=== PATIENT | male | born 1945 | race Caucasian/White ===

== ENCOUNTER 2024-09-19 14:20 | Inpatient (IN) | payer MEDICARE, SELFPAY ==
[2024-09-19] VITALS (15 sets, daily range): BP systolic 116–156; BP diastolic 61–75; PULSE 71–117; RESP 16–88; TEMP 36.4–39.3; O2SAT 90–97; BMI 26.4; BMI 21.1
--- NOTE | 2024-09-19 14:53 | XR_ITS ---
Examination: Foot, left, 3 views Technique: AP, oblique, lateral views foot, 3 views Date and time of exam: September 19, 2024 1512 hours INDICATIONS: Onset left flank pain today. FINDINGS: Soft tissue defect at the fifth metatarsophalangeal joint No fracture No cortical bone destruction Significant intertarsal arthritic change with osteophyte formation at the talonavicular joint IMPRESSION: No laisha cortical bone destruction
--- NOTE | 2024-09-19 14:53 | EKG_ITS ---
[facility] Test Date: 2024-09-19 Pat Name: HERMAN STEEL Department: Room: - Gender: Male Test Operator: : 1945 Requested By: Halley Krishna Order Number: [id number] Reading MD: Halley Krishna Measurements Intervals [place] Rate: 83 P: 73 WV: 161 QRS: 132 QRSD: 178 T: -12 QT: 416 QTc: 491 Interpretive Statements SINUS RHYTHM WITH OCCASIONAL SUPRAVENTRICULAR PREMATURE COMPLEXES RIGHT AXIS DEVIATION [QRS AXIS > 100] RIGHT BUNDLE BRANCH BLOCK [120+ ms QRS DURATION, UPRIGHT V1, 40+ ms S IN I/aVL/V4/V5/V6] No previous ECG available for comparison /store/S0/[id number].pdf
--- NOTE | 2024-09-19 14:55 | XR_ITS ---
Examination: AP chest single view Technique one AP portable upright chest single view Date and time: September 19, 2024 1516 hours INDICATIONS: Sepsis protocol fever FINDINGS: Suspicious for early pneumonia left base retrocardiac Right lung clear Normal heart size IMPRESSION: Suspicious for early left base pneumonia
--- NOTE | 2024-09-19 14:57 | PD.EDAMS ---
Altered Mental Status RME/HPI General Chief Complaint: Altered Mental Status Stated Complaint: WEAKNESS AND CONFUSION x 3 DAYS, SORE TO FOOT Time Seen by Provider: 09/19/24 14:47 Arrival date/time: 09/19/24 14:20 RME / HPI RME / HPI narrative: 79-year-old male patient was brought in by EMS for evaluation regarding weakness, fever, confusion, for the last 3 days. Severity of symptoms moderate. Patient also was seen by license registration examiner 3 days ago and was advised that the infection is getting worse. Patient told me that he is currently taking unrecalled antibiotics. Patient also complained of cough. Denies any other complaints on my initial evaluation patient is alert and oriented x 2 sepsis alert was initiated right away. For fever and tachycardia Related Data Home Medications ?Medication ?Instructions ?Recorded ?Confirmed aspirin 81 mg tablet 81 mg PO QDAY 09/19/24 09/19/24 atorvastatin 20 mg tablet (Lipitor) 20 mg PO QDAY 09/19/24 09/19/24 gabapentin 300 mg capsule 300 mg PO Q8H PRN back pain 09/19/24 09/19/24 metformin 500 mg tablet 500 mg PO BIDWMEAL 09/19/24 09/19/24 omeprazole 20 mg capsule,delayed 20 mg PO QDAY 09/19/24 09/19/24 release Allergies Allergy/AdvReac Type Severity Reaction Status Date / Time No Known Allergies Allergy Verified 09/19/24 14:41 Review of Systems Review of Systems Narrative Review of Systems: Review of system reviewed and within normal limits except mentioned in HPI ED Exam Narrative Physical exam: VITAL SIGNS: Reviewed. GENERAL APPEARANCE: Alert and oriented x 2 follows commands, no acute distress, febrile HEAD AND FACE: Non-traumatic. ENT: PERRL, pink conjunctivitis, eyelid no trauma, Mucous membrane moist. NECK: Supple, nontender, no nuchal rigidity. CHEST: No tenderness, no crepitus, no paradoxical movement, no retractions. LUNGS: Clear, well ventilated, symmetric, no rales, no wheezing, no ronchi, no stridor, good breath sounds bilaterally. HEART: Tachycardic, no murmur, no gallops. ABDOMEN: Soft, positive bowel sounds, nondistended, no guarding, nontender, no rebound, no masses, RECTAL: Deferred. GENITAL: Deferred. NEUROLOGICAL: Gross motor function intact sensory function intact, Appropriate for age. MUSCULOSKELETAL: low back nontender, full range of motion. EXTREMITIES: Right foot with plantar ulcer on the lateral aspect, with redness all the way to the dorsum of the foot with foul-smelling discharge, full range of motion. SKIN: Color pink, dry, no rash, no lacerations, no abrasions, no contusions. LYMPHATICS: Deferred. Course Quality Measures none Orders Category Date Time Status Bedside Influenza A&B Antigen Test NOW Care 09/19/24 17:00 Completed COVID-19 Screening Questionnaire NOW Care 09/19/24 19:52 Completed Fancy Needleworker STAT Care 09/19/24 14:53 Completed Continuous Pulse Oximetry STAT Care 09/19/24 14:53 Completed Decision to Admit X1 Care 09/19/24 19:52 Completed EKG (ED ONLY) *Do not use* NOW Care 09/19/24 14:53 Completed In and Out Catheter X1PRN Care 09/19/24 14:53 Completed Insert IV NOW Care 09/19/24 14:53 Active NPO STAT Care 09/19/24 14:53 Active Strict Intake and Output Routine Care 09/19/24 14:53 Ordered Consult to Cardiology Stat Cons 09/19/24 18:[address] head/brain wo con Stat Exams 09/19/24 15:29 Completed EKG (ED Only) Stat Exams 09/19/24 14:53 Draft XR chest 1V Stat Exams 09/19/24 14:55 Completed XR foot comp LT min 3V Stat Exams 09/19/24 14:53 Completed B-Type Natriuretic Peptide Stat Lab 09/19/24 15:05 Completed Blood Culture (Lab) Stat Lab 09/19/24 15:10 Results CBC Stat Lab 09/19/24 15:05 Completed COVID-19 Antigen (In-House) Stat Lab 09/19/24 17:07 Completed Comprehensive Metabolic Panel Stat Lab 09/19/24 15:05 Completed LDH (Lactate Dehydrogenase) Stat Lab 09/19/24 15:05 Completed Lactate (Lactic Acid) Stat Lab 09/19/24 15:05 Completed Lipase Stat Lab 09/19/24 15:05 Completed Magnesium Stat Lab 09/19/24 15:05 Completed Partial Thromboplastin Time Stat Lab 09/19/24 15:05 Completed Phosphorous Stat Lab 09/19/24 15:05 Completed Procalcitonin Stat Lab 09/19/24 15:05 Completed Prothrombin Time with INR Stat Lab 09/19/24 15:05 Completed Troponin I Stat Lab 09/19/24 15:05 Completed Troponin I Stat Lab 09/19/24 17:15 Completed Urinalysis Stat Lab 09/19/24 20:13 Completed Urine Culture Stat Lab 09/19/24 20:13 Received Acetaminophen Tab [Tylenol ES Tab] Med 09/19/24 14:53 Discontinued 1,000 mg PO X1 ONE Aspirin Med 09/19/24 18:02 Discontinued 325 mg PO X1 ONE Piper/Tazo 3.375 gm Premix [Zosyn] Med 09/19/24 14:54 Discontinued 3.375 gm in 50 ml IV X1 Sodium Chloride 0.9% 1000 ml [Ns] 1,000 ml Med 09/19/24 14:54 Discontinued IV 999 mls/hr Vancomycin/Ns 1 gm Ivpb 200 ml Med 09/19/24 14:54 Discontinued IV X1 Oxygen Delivery NOW RT 09/19/24 14:53 Active Vital Signs Vital signs: Vital Signs Temperature 99.0 F 09/19/24 14:29 Pulse Rate 100 09/19/24 14:29 Respiratory Rate 17 09/19/24 14:29 Blood Pressure 128/75 09/19/24 14:29 Pulse Oximetry (%) 95 09/19/24 14:29 Oxygen Delivery Method Nasal Cannula 09/19/24 14:29 Oxygen Flow Rate 6 09/19/24 14:29 Altered Mental Status MDM Narrative MDM Narrative:: 79-year-old male patient was brought in by EMS for evaluation regarding weakness, fever, confusion, for the last 3 days. Severity of symptoms moderate. Patient also was seen by license registration examiner 3 days ago and was advised that the infection is getting worse. Patient told me that he is currently taking unrecalled antibiotics. Patient also complained of cough. Denies any other complaints on my initial evaluation patient is alert and oriented x 2 sepsis alert was initiated right away. For fever and tachycardia EKG showed sinus rhythm, ventricular rate of 83 bpm, IN interval 161 MS, no ST segment elevation depression noted. X-ray of the foot came back unremarkable. Patient received vancomycin and Zosyn Spoke with hospitalist, who admitted the patient. Patient was also referred to Dr. Randy Paez, graduate intern for elevated troponin Patient data External records reviewed:: None Clinical information provided by:: patient and family Social determinants that could affect healthcare access:: none Patient has the following chronic illnesses:: Diabetes mellitus, hypertension How is presenting disease/condition affected by chronic disease/condition?: exacerbated by Evaluation data The following diagnostics were reviewed and interpreted by me:: lab results, radiology exam(s) and EKG tracing(s) Lab and/or radiology exams considered but not ordered:: None Interpretation Summary: See results MDM Medications / Prescriptions Medications or Prescriptions considered but not ordered:: None Medication administrations:: Medication Administration History Acetaminophen (Acetaminophen 325 Mg Tablet) 1,000 mg PO Q6H PRN PRN Reason: PAIN SCALE 1-3 (mild Stop: 10/19/24 20:44 Acetaminophen (Acetaminophen 325 Mg Tablet) 650 mg PO Q6H PRN PRN Reason: FEVER > 100.4 Stop: 10/19/24 20:44 Aspirin (Aspirin Ec 81 Mg Tabec) 81 mg PO QDAY [facility] Stop: 10/20/24 08:59 Last Admin: 09/20/24 08:26 Dose: 81 mg Documented By: VALERIE Atorvastatin Calcium (Atorvastatin Calcium 20 Mg Tablet) 20 mg PO HS [facility] Stop: 10/19/24 20:59 Last Admin: 09/20/24 21:12 Dose: 20 mg Documented By: Admin: 09/19/24 21:01 Dose: 20 mg Documented By: KARMA Dextrose (Dextrose 50%-Water Inj 50 Ml Syringe) 25 ml IV Q15MIN PRN PRN Reason: BG 50-70 responsive npo pt Stop: 10/19/24 21:02 Dextrose (Dextrose 50%-Water Inj 50 Ml Syringe) 50 ml IV Q15MIN PRN PRN Reason: BG <50 OR BG <70 & pt unresponsive Stop: 10/19/24 21:02 Docusate Sodium (Docusate Sod 100 Mg Capsule) 100 mg PO QDAY [facility]; Protocol Stop: 10/20/24 08:59 Last Admin: 09/20/24 08:26 Dose: 100 mg Documented By: MGTracy Folic Acid (Folic Acid 1 Mg Tablet) 1 mg PO BID [facility] Stop: 09/24/24 21:14 Last Admin: 09/20/24 21:12 Dose: 1 mg Documented By: Admin: 09/20/24 08:26 Dose: 1 mg Documented By: Admin: 09/19/24 22:26 Dose: 1 mg Documented By: KARMA Gabapentin (Gabapentin 300 Mg Capsule) 300 mg PO TID [facility] Stop: 10/19/24 21:59 Last Admin: 09/20/24 22:02 Dose: 300 mg Documented By: Admin: 09/20/24 14:23 Dose: 300 mg Documented By: Admin: 09/20/24 05:43 Dose: 300 mg Documented By: Admin: 09/19/24 22:26 Dose: 300 mg Documented By: KARMA Glucagon (Glucagon Inj 1 Mg Vial) 1 mg IM Q15MIN PRN PRN Reason: BG <70, and no IV access Heparin Sodium (Porcine) (Heparin Sod Inj 5000 Unit/Ml Vial) 5,000 unit SC Q8HR [facility] Stop: 10/03/24 21:59 Last Admin: 09/20/24 21:12 Dose: 5,000 unit Documented By: LANDON Co-signed By: Admin: 09/20/24 14:24 Dose: 5,000 unit Documented By: VALERIE Co-signed By: KARMA(2) Admin: 09/20/24 05:43 Dose: 5,000 unit Documented By: HANNA Co-signed By: ALESSANDRO Admin: 09/19/24 22:26 Dose: 5,000 unit Documented By: KARMA Co-signed By: BRIAN Piperacillin/Tazobactam/Dextrose (Zosyn) 3.375 gm in 50 mls @ 12.5 mls/hr IV Q8HR [facility] Stop: 09/26/24 20:57 Last Admin: 09/20/24 22:02 Dose: 12.5 mls/hr Documented By: Infusion: 09/20/24 19:15 Dose: Infused Documented By: Admin: 09/20/24 14:24 Dose: 12.5 mls/hr Documented By: Infusion: 09/20/24 09:43 Dose: Infused Documented By: Admin: 09/20/24 05:43 Dose: 12.5 mls/hr Documented By: Infusion: 09/20/24 02:26 Dose: Infused Documented By: Admin: 09/19/24 22:26 Dose: 12.5 mls/hr Documented By: KARMA Vancomycin/Sodium Chloride (Vancomycin/Ns 1 Gm Ivpb) 200 mls @ 120 mls/hr IV Q12H [facility]; Protocol Stop: 09/27/24 21:59 Last Admin: 09/20/24 21:12 Dose: 120 mls/hr Documented By: LANDON Insulin Human Lispro (Insulin Lispro (Admelog) 1 Unit/0.01 Ml Unit) 0 unit SC AC [facility]; Protocol Stop: 10/20/24 07:29 Last Admin: 09/20/24 17:37 Dose: Not Given Documented By: MGD Non-Admin Reason: Patient Refused Admin: 09/20/24 12:04 Dose: Not Given Documented By: MGD Non-Admin Reason: lethargic, unable to eat Admin: 09/20/24 07:42 Dose: Not Given Documented By: MGD Non-Admin Reason: Patient Refused Lidocaine (Lidocaine 5% 1 Patch) 1 patch TOP UD PRN; Protocol PRN Reason: PAIN Stop: 10/20/24 18:55 Last Admin: 09/20/24 19:45 Dose: 1 patch Documented By: LANDON Lorazepam (Lorazepam 2 Mg/Ml Vial) 0.5 mg IV Q2HR PRN PRN Reason: CIWA SCORE 7-13 Stop: 09/24/24 21:07 Lorazepam (Lorazepam 2 Mg/Ml Vial) 1 mg IV Q2HR PRN PRN Reason: CIWA SCORE 14-19 Stop: 09/24/24 21:07 Lorazepam (Lorazepam 2 Mg/Ml Vial) 2 mg IV Q2HR PRN PRN Reason: CIWA SCORE 20-25 Stop: 09/24/24 21:07 Lorazepam (Lorazepam 0.5 Mg Tablet) 0.5 mg PO Q4HR PRN PRN Reason: CIWA Score 2-6 Stop: 09/24/24 21:07 Ondansetron HCl (Ondansetron Inj 2 Mg/Ml Inj 2 Ml) 4 mg IVP Q6H PRN; Protocol PRN Reason: NAUSEA OR VOMITING Stop: 10/19/24 20:44 Pantoprazole Sodium (Pantoprazole 40 Mg Tablet) 40 mg PO QDAY [facility] Stop: 10/20/24 08:59 Last Admin: 09/20/24 08:26 Dose: 40 mg Documented By: MGD Pharmacy Consult (Vancomycin Pharmacy To Dose 1 Each Each) 1 each IV QDAY PRN PRN Reason: PROTOCOL Stop: 10/20/24 11:09 Thiamine HCl (Thiamine 100 Mg Tablet) 100 mg PO BID [facility] Stop: 09/24/24 21:14 Last Admin: 09/20/24 21:12 Dose: 100 mg Documented By: Admin: 09/20/24 08:26 Dose: 100 mg Documented By: Admin: 09/19/24 22:26 Dose: 100 mg Documented By: KARMA Discontinued Medications Acetaminophen (Acetaminophen 500 Mg Tablet) 1,000 mg PO X1 ONE Stop: 09/19/24 14:54 Last Admin: 09/19/24 16:24 Dose: 1,000 mg Documented By: ROBERT Acetaminophen (Acetaminophen 325 Mg Tablet) 650 mg PO Q6H PRN PRN Reason: Fever >100.4 Stop: 10/19/24 20:44 Aspirin (Aspirin 325 Mg Tablet) 325 mg PO X1 ONE Stop: 09/19/24 18:03 Last Admin: 09/19/24 19:05 Dose: 325 mg Documented By: KARMA Doxycycline Hyclate (Doxycycline 100 Mg Tablet) 100 mg PO BID [facility] Stop: 09/26/24 20:59 Last Admin: 09/20/24 08:26 Dose: 100 mg Documented By: Admin: 09/19/24 22:26 Dose: 100 mg Documented By: KARMA Sodium Chloride (Ns) 1,000 mls @ 999 mls/hr IV .Q1H1M ONE Stop: 09/19/24 15:54 Last Infusion: 09/19/24 17:10 Dose: Infused Documented By: Admin: 09/19/24 16:22 Dose: 999 mls/hr Documented By: ROBERT Vancomycin/Sodium Chloride (Vancomycin/Ns 1 Gm Ivpb) 200 mls @ 120 mls/hr IV X1 ONE Stop: 09/19/24 16:33 Last Infusion: 09/19/24 19:02 Dose: Infused Documented By: Admin: 09/19/24 16:23 Dose: 120 mls/hr Documented By: ROBERT Piperacillin/Tazobactam/Dextrose (Zosyn) 3.375 gm in 50 mls @ 100 mls/hr IV X1 ONE Stop: 09/19/24 15:23 Last Infusion: 09/19/24 16:54 Dose: Infused Documented By: Admin: 09/19/24 16:22 Dose: 100 mls/hr Documented By: CG Sodium Chloride (Ns) 1,000 mls @ 100 mls/hr IV .Q10H [facility] Stop: 09/20/24 06:44 Last Admin: 09/19/24 21:00 Dose: 100 mls/hr Documented By: AC Vancomycin HCl (Vancomycin/Water 1250 Mg Ivpb) 250 mls @ 120 mls/hr IV X1 ONE Stop: 09/20/24 13:19 Last Admin: 09/20/24 11:37 Dose: 120 mls/hr Documented By: MGD Morphine Sulfate (Morphine Sulf Inj 10 Mg/Ml Vial) 2 mg IVP X1 ONE Stop: 09/20/24 08:50 Last Admin: 09/20/24 10:12 Dose: 2 mg Documented By: MGD Morphine Vanco Zosyn, aspirin Consultations Consultation(s) initiated? (list below): Yes Consultation #1 (Physician, Specialty, Details): Alteration Hand, Dr. Stafford thank you Diagnosis Differential diagnosis altered mental status: altered mental status, sepsis and other (Diabetic foot infection, sepsis, elevated troponin) Most likely diagnosis given after review of the tests above:: Diabetic foot infection, elevated troponin Admission Indicated Admission indicated?: indicated Admission Request Was there a request for admission?: No Disposition Plan Disposition Plan: Admit Discharge Plan Plan Patient Disposition: Admit Acute Care w/in Hospital Problem List Clinical Impression: Diabetic foot infection, Elevated troponin
[2024-09-19 15:16] LABS: Lactate (Lactic Acid) 1.3 mMol/L (0.4-2.0)
[2024-09-19 15:19] LABS: Basophils # (Auto) 0.1 Thou/mm3 (0.0-0.2); Basophils % (Auto) 1 % (0-2.5); Eosinophils # (Auto) 0.0 Thou/mm3 (0.0-0.5); Eosinophils % (Auto) 0 % (0-10); Hematocrit 37.9 % (41.0-53.0); Hemoglobin 13.9 g/dL (13.5-16.0); Immature Granulocytes Auto 0.18 Thou/mm3 (0.00-0.00); Lymphocytes # (Auto) 1.1 Thou/mm3 (1.0-4.8); Lymphocytes % (Auto) 6 % (10-50); Mean Corpuscular HGB Conc 36.7 g/dl (31.0-37.0); Mean Corpuscular Hemoglobin 33.8 pg (25.0-35.0); Mean Corpuscular Volume 92 fL (80-100); Monocytes # (Auto) 2.1 Thou/mm3 (0.0-0.8); Monocytes % (Auto) 12 % (0-12); Neutrophils # (Auto) 14.3 Thou/mm3 (1.8-7.7); Neutrophils % (Auto) 80 % (37-80); Nucleated Red Blood Cell # 0.00 Thou/mm3 (0.00-0.00); Nucleated Red Blood Cell % 0 /100 WBC (0); Platelet Count 217 Thou/mm3 (140-440); RDW Standard Deviation 41.8 fL (35.1-43.9); Red Blood Count 4.11 Miln/mm3 (4.50-5.90); White Blood Count 17.8 Thou/mm3 (3.8-10.6)
--- NOTE | 2024-09-19 15:29 | XR_ITS ---
Examination: CT brain head without contrast. 2-D sagittal coronal reconstructions Date and time of exam:September 19, 2024 1543 hours INDICATIONS: Altered mental status today CTDI: vol (mGy):52 DLP: (mGycm):1186 Technique: Multiple CT axial sections of the brain have been obtained, 5 mm slice thickness. Contrast has not been administered. 2-D sagittal, coronal reconstructions have been obtained Low dose protocols were performed. One or more of the following dose reduction techniques were used; automated exposure control, adjustment of the mA and/or KV according to patient size, use of iterative reconstruction technique. 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
[2024-09-19 15:37] LABS: INR 1.2 (0.9-1.3); Partial Thromboplastin Time 30.2 Seconds (22.0-36.0); Prothrombin Time 12.7 Seconds (9.0-12.2)
[2024-09-19 15:40] LABS: B-Type Natriuretic Peptide 304 pg/mL (0-100)
[2024-09-19 15:50] LABS: Alanine Aminotransferase 57 U/L (10-49); Albumin, Serum 4.3 gm/dL (3.4-4.8); Albumin/Globulin Ratio 1.8 (1.2-2.2); Alkaline Phosphatase 84 U/L (46-116); Anion Gap 10 (7-16); Aspartate Amino Transferase 69 U/L (0-34); BUN/Creatinine Ratio 13 Ratio (12-20); Bilirubin,Total 1.3 mg/dL (0.3-1.2); Blood Urea Nitrogen 14 mg/dL (9-23); Calcium 9.0 mg/dL (8.3-10.6); Calcium (Corrected) 9.0 mg/dL (8.5-10.1); Carbon Dioxide 23.6 mMol/L (20.0-31.0); Chloride 99 mMol/L (98-107); Creatinine (Component) 1.1 mg/dL (0.6-1.3); Estimated Creatinine Clearance 56.8 mL/min (>60); Globulin 2.4 gm/dL (2.3-3.5); Glucose 180 mg/dL (74-106); LDH (Lactate Dehydrogenase) 252 U/L (120-246); Lipase 27 U/L (12-53); Magnesium 1.9 mg/dL (1.6-2.6); Osmolality,Calculated 271 (275-295); Phosphorous 2.3 mg/dL (2.4-5.1); Potassium 3.5 mMol/L (3.4-5.1); Procalcitonin 1.52 ng/ml (0.0-0.49); Sodium 133 mMol/L (136-145); Total Protein 6.7 gm/dL (5.7-8.2); eGFR > 60 See Note
[2024-09-19 15:59] LABS: Troponin I 0.670 ng/mL (0.0-0.045)
[2024-09-19] MEDS: SODIUM CHLORIDE 0.9% 1000 ML 1,000 ML 999 ML IV (16:22)
[2024-09-19] MEDS: PIPER/TAZO 3.375 GM PREMIX 3.375 GM/50 ML BAG IV ×2 (16:22→22:26)
[2024-09-19] MEDS: VANCOMYCIN/NS 1 GM IVPB 200 ML IV (16:23)
[2024-09-19] MEDS: ACETAMINOPHEN 500 MG TABLET 1000 MG PO (16:24)
[2024-09-19 17:55] LABS: Troponin I 0.772 ng/mL (0.0-0.045)
[2024-09-19 18:20] LABS: COVID-19 Antigen (In-House) Negative (Negative)
[2024-09-19 20:21] LABS: Collection Type, Urine Clean Catch; Squamous Epithelial Cell,Urine 0 /hpf (0-5)
[2024-09-19 20:42] LABS: Bilirubin,Urine Negative (Negative); Blood,Urine Negative (Negative); Clarity,Urine Clear (Clear/Hazy); Color,Urine Yellow (Lt Yel-Yel); Glucose, Urine Trace (Negative); Ketones,Urine 1+ (Negative); Leukocyte Esterase,Urine Negative (Negative); Nitrite,Urine Negative (Negative); PH,Urine 5.5 (5.0-7.0); Protein,Urine Trace (Neg - Trace); RBC,Urine 1 /hpf (0-3); Specific Gravity,Urine 1.022 (1.001-1.035); Urobilinogen,Urine 3.0 mg/dL (0.0-1.0); WBC,Urine 1 /hpf (0-5)
--- NOTE | 2024-09-19 20:58 | PD.RESHP ---
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 Last week patient went to see his documentation manager to get his nails clipped found to have a skin abrasion that looked like an abscess and was cleaned at the documentation manager office. On Monday patient noted that he was having flulike symptoms with some fevers and cough. Patient lives with his brother and states that he usually ambulates with a walker however on Monday patient felt weakness all over his body and was unable to walk as he felt too weak as well as 1 episode of vomiting. He also endorses some left lower extremity pain on the sole of the foot. At this time patient denies any headache, blurry vision, shortness of breath, chest pain, palpitations, abdominal pain, diarrhea, changes in urinary or bowel habits, sick contacts, recent travel. ED course: ED vitals: BP 128/75, HR 100, temperature 99 Fahrenheit, saturating 95% on 6 L nasal cannula ED labs: Leukocytosis, phosphorus 2.3, T. bili 1.3, AST 69, ALT 57, LDH 252, troponin 0.772, BNP 304, procalcitonin 1.52, Foot x-ray shows Soft tissue defect at the fifth metatarsophalangeal joint, chest x-ray shows early left current pneumonia, head CT negative for acute hemorrhage, midline shift, mass effect In the ED patient received vancomycin, Zosyn, 1 L NS, aspirin 325, Tylenol PMHx: As above SX Hx: Hernia repair, prostate surgery Social Hx: Drinks 1 shot and 1/2+ a few beers every day, denies cigarette use, denies illicit substances including THC FH X: Unknown Review of Systems Review of Systems Systems Reviewed: All systems reviewed, normal except as documented Narrative Review of Systems: All 12 systems were reviewed and found negative unless otherwise stated in HPI. Exam Vital Signs Temp Pulse Resp BP Pulse Ox O2 Del Method O2 Flow Rate 98.5 F 71 19 132/61 H 92 L Room Air 6 09/19/24 19:27 09/19/24 19:27 09/19/24 19:27 09/19/24 19:27 09/19/24 19:27 09/19/24 19:27 09/19/24 14:29 Narrative Exam Physical Exam GENERAL: NAD, AAOx3 HEENT: Moist mucosa. Eyes open, symmetrical, & clear CARDIO: Heart RRR, no obvious murmurs PULM: No noted coughing/dyspnea CTA B/L, no R/W/R GI: Abdomen soft, nondistended, no pain on palpation. BSx4 SKIN/MSK/EXT: Left lower extremity wound on the lateral side of the sole draining puslike fluid, no pain on palpation. Pedal pulses present B/L NEURO: AAOx3, no focal neuro deficits, able to move all 4 extremities Results: Labs 09/19/24 15:05 09/19/24 15:05 Labs: Short CBC 09/19/24 Range/Units 15:05 WBC 17.8 H (3.8-10.6) Thou/mm3 Hgb 13.9 (13.5-16.0) g/dL Hct 37.9 L (41.0-53.0) % Plt Count 217 (140-440) Thou/mm3 BMP 09/19/24 15:05 Sodium 133 L Potassium 3.5 Chloride 99 Carbon Dioxide 23.6 BUN 14 Creatinine 1.1 Glucose 180 H Calcium 9.0 Cardiac Enzymes 09/19/24 09/19/24 Range/Units 15:05 17:15 Troponin I 0.670 H* 0.772 H* (0.0-0.045) ng/mL Liver Function 09/19/24 Range/Units 15:05 Total Bilirubin 1.3 H (0.3-1.2) mg/dL AST 69 H (0-34) U/L ALT 57 H (10-49) U/L Alkaline Phosphatase 84 (46-116) U/L Albumin 4.3 (3.4-4.8) gm/dL Quality Measures Quality Measures VTE prophylaxis Advance care planning discussed with:: patient Medications Home Medications and Allergies Home Medications ?Medication ?Instructions ?Recorded ?Confirmed ?Type aspirin 81 mg tablet 81 mg PO QDAY 09/19/24 09/19/24 History atorvastatin 20 mg tablet (Lipitor) 20 mg PO QDAY 09/19/24 09/19/24 History gabapentin 300 mg capsule 300 mg PO Q8H PRN back pain 09/19/24 09/19/24 History metformin 500 mg tablet 500 mg PO BIDWMEAL 09/19/24 09/19/24 History omeprazole 20 mg capsule,delayed 20 mg PO QDAY 09/19/24 09/19/24 History release Allergies Allergy/AdvReac Type Severity Reaction Status Date / Time No Known Allergies Allergy Verified 09/19/24 14:41 Visit Medications Acetaminophen (Acetaminophen 325 Mg Tablet) 650 mg PO Q6H PRN PRN Reason: Fever >100.4 Stop: 10/19/24 20:44 Acetaminophen (Acetaminophen 325 Mg Tablet) 1,000 mg PO Q6H PRN PRN Reason: PAIN SCALE 1-3 (mild Stop: 10/19/24 20:44 Aspirin (Aspirin Ec 81 Mg Tabec) 81 mg PO QDAY [facility] Stop: 10/20/24 08:59 Atorvastatin Calcium (Atorvastatin Calcium 20 Mg Tablet) 20 mg PO HS [facility] Stop: 10/19/24 20:59 Docusate Sodium (Docusate Sod 100 Mg Capsule) 100 mg PO QDAY [facility]; Protocol Stop: 10/20/24 08:59 Doxycycline Hyclate (Doxycycline 100 Mg Tablet) 100 mg PO BID [facility] Stop: 09/26/24 20:59 Gabapentin (Gabapentin 300 Mg Capsule) 300 mg PO TID [facility] Stop: 10/19/24 21:59 Heparin Sodium (Porcine) (Heparin Sod Inj 5000 Unit/Ml Vial) 5,000 unit SC Q8HR [facility] Stop: 10/03/24 21:59 Sodium Chloride (Ns) 1,000 mls @ 100 mls/hr IV .Q10H [facility] Stop: 09/20/24 06:44 Piperacillin/Tazobactam/Dextrose (Zosyn) 50 mls @ 100 mls/hr IV Q8HR [facility] Stop: 09/26/24 20:57 Ondansetron HCl (Ondansetron Inj 2 Mg/Ml Inj 2 Ml) 4 mg IVP Q6H PRN; Protocol PRN Reason: NAUSEA OR VOMITING Stop: 10/19/24 20:44 Pantoprazole Sodium (Pantoprazole 40 Mg Tablet) 40 mg PO QDAY [facility] Stop: 10/20/24 08:59 Discontinued Medications Acetaminophen (Acetaminophen 500 Mg Tablet) 1,000 mg PO X1 ONE Stop: 09/19/24 14:54 Last Admin: 06/26/25 16:24 Dose: 1,000 mg Aspirin (Aspirin 325 Mg Tablet) 325 mg PO X1 ONE Stop: 09/19/24 18:03 Last Admin: 09/19/24 19:05 Dose: 325 mg Sodium Chloride (Ns) 1,000 mls @ 999 mls/hr IV .Q1H1M ONE Stop: 09/19/24 15:54 Last Infusion: 09/19/24 17:10 Dose: Infused Vancomycin/Sodium Chloride (Vancomycin/Ns 1 Gm Ivpb) 200 mls @ 120 mls/hr IV X1 ONE Stop: 09/19/24 16:33 Last Infusion: 09/19/24 19:02 Dose: Infused Piperacillin/Tazobactam/Dextrose (Zosyn) 3.375 gm in 50 mls @ 100 mls/hr IV X1 ONE Stop: 09/19/24 15:23 Last Infusion: 09/19/24 16:54 Dose: Infused Assessment & Plan Plan 79-year-old male with past medical history of diabetes, sciatica, remote history of valley fever who 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 #Left lower extremity cellulitis/abcess #Early left base pneumonia Leukocytosis, tachycardia, afebrile Has pus draining from wound site Chest x-ray shows early left base pneumonia Foot x-ray shows soft tissue infection of fifth metatarsal ? Doxycycline ? Zosyn ? Surgery consulted appreciate recs ? Follow-up cultures #Elevated troponins ? Cardio consulted ? Trend troponins #Elevated liver enzymes/T. bili Likely in the setting of alcohol use ? Gallbladder ultrasound ordered #Diabetes mellitus type 2 ? SSI ? Hypoglycemia protocol in place #Alcohol use disorder ? Thiamine ? Folic acid ? CIWA protocol Health Maintenance: Disposition: Med telemetry Fluids: NS Feeding: Carb consistent low Thrombo prophylaxis: Heparin Gastric Ulcer prophylaxis: Pantoprazole CODE STATUS: DNR Case discussed with my attending Dr. Kvng Salazar MD PGY-1 Disclaimer: Despite multiple revisions, due to the dictation software being used, the document bellow may not be free of grammatical errors including phonetic/typographic errors. However, this does not deter from our commitment to providing health care in the patient's best interest in mind. Attending Provider Attestation/Addendum Adm I discussed with and supervised the resident physician who took care of this patient. White count 17,800. He has elevated transaminases. She has hyponatremia. I agree with the assessment and plan as above. I discussed with and supervised the resident physician who took care of this patient. I agree with the assessment and plan as above.
[2024-09-19] MEDS: SODIUM CHLORIDE 0.9% 1000 ML 1,000 ML 100 ML IV (21:00)
[2024-09-19] MEDS: ATORVASTATIN CALCIUM 20 MG TABLET PO (21:01)
--- NOTE | 2024-09-19 21:20 | XR_ITS ---
Examination: Abdomen sonogram, Limited Date and time of exam: September 19, 2024, 213 hours INDICATIONS: Elevated total bilirubin and laboratory examination today Technique: Real-time mathur scale transabdominal sonographic images of the upper abdomen obtained. Findings: Negative for gallstones Gallbladder wall 0.36 cm no edema Common bile duct 0.3 cm Pancreatic edema 0.4 cm Moderate hepatomegaly 18.8 cm fatty infiltration no focal liver lesions Normal hepatopedal portal venous flow Patent IVC IMPRESSION: Negative for cholelithiasis, no gallbladder wall thickening or edema Normal common bile duct Moderate hepatomegaly and fatty liver no focal liver lesions
[2024-09-19] MEDS: HEPARIN SOD INJ 5000 UNIT/ML VIAL SC (22:26)
[2024-09-19] MEDS: FOLIC ACID 1 MG TABLET PO (22:26)
[2024-09-19] MEDS: GABAPENTIN 300 MG CAPSULE PO (22:26)
[2024-09-19] MEDS: THIAMINE 100 MG TABLET PO (22:26)
[2024-09-19] MEDS: DOXYCYCLINE 100 MG TABLET PO (22:26)
--- NOTE | 2024-09-19 22:31 | PC.NURSE ---
REPORT GIVEN TO FLOOR CAREY WALSH
[2024-09-19 23:01] LABS: Troponin I 0.652 ng/mL (0.0-0.045)
[2024-09-20] VITALS (9 sets, daily range): BP systolic 120–156; BP diastolic 66–91; PULSE 66–91; RESP 14–90; TEMP 36.3–37.2; O2SAT 92–96; BMI 22.1
[2024-09-20 03:20] LABS: Basophils # (Auto) 0.1 Thou/mm3 (0.0-0.2); Basophils % (Auto) 0 % (0-2.5); Eosinophils # (Auto) 0.0 Thou/mm3 (0.0-0.5); Eosinophils % (Auto) 0 % (0-10); Hematocrit 39.8 % (41.0-53.0); Hemoglobin 14.1 g/dL (13.5-16.0); Immature Granulocytes Auto 0.07 Thou/mm3 (0.00-0.00); Lymphocytes # (Auto) 1.3 Thou/mm3 (1.0-4.8); Lymphocytes % (Auto) 8 % (10-50); Mean Corpuscular HGB Conc 35.4 g/dl (31.0-37.0); Mean Corpuscular Hemoglobin 33.5 pg (25.0-35.0); Mean Corpuscular Volume 95 fL (80-100); Monocytes # (Auto) 1.5 Thou/mm3 (0.0-0.8); Monocytes % (Auto) 9 % (0-12); Neutrophils # (Auto) 13.2 Thou/mm3 (1.8-7.7); Neutrophils % (Auto) 82 % (37-80); Nucleated Red Blood Cell # 0.00 Thou/mm3 (0.00-0.00); Nucleated Red Blood Cell % 0 /100 WBC (0); Platelet Count 198 Thou/mm3 (140-440); RDW Standard Deviation 42.9 fL (35.1-43.9); Red Blood Count 4.21 Miln/mm3 (4.50-5.90); White Blood Count 16.0 Thou/mm3 (3.8-10.6)
[2024-09-20 03:31] LABS: Glucose Estimated Average 114 mg/dL (80-131); Hemoglobin A1C 5.6 % Hgb (4.8-6.0)
[2024-09-20 03:52] LABS: Alanine Aminotransferase 50 U/L (10-49); Albumin, Serum 4.3 gm/dL (3.4-4.8); Albumin/Globulin Ratio 2.2 (1.2-2.2); Alkaline Phosphatase 76 U/L (46-116); Anion Gap 10 (7-16); Aspartate Amino Transferase 44 U/L (0-34); BUN/Creatinine Ratio 12 Ratio (12-20); Bilirubin,Total 1.6 mg/dL (0.3-1.2); Blood Urea Nitrogen 11 mg/dL (9-23); Calcium 8.8 mg/dL (8.3-10.6); Calcium (Corrected) 8.8 mg/dL (8.5-10.1); Carbon Dioxide 23.8 mMol/L (20.0-31.0); Chloride 102 mMol/L (98-107); Creatinine (Component) 0.9 mg/dL (0.6-1.3); Estimated Creatinine Clearance 69.4 mL/min (>60); Globulin 2.0 gm/dL (2.3-3.5); Glucose 158 mg/dL (74-106); Magnesium 2.0 mg/dL (1.6-2.6); Osmolality,Calculated 274 (275-295); Phosphorous 2.4 mg/dL (2.4-5.1); Potassium 3.9 mMol/L (3.4-5.1); Sodium 136 mMol/L (136-145); Total Protein 6.3 gm/dL (5.7-8.2); eGFR > 60 See Note
[2024-09-20 03:59] LABS: Troponin I 0.691 ng/mL (0.0-0.045)
[2024-09-20] MEDS: HEPARIN SOD INJ 5000 UNIT/ML VIAL SC ×3 (05:43→21:12)
[2024-09-20] MEDS: GABAPENTIN 300 MG CAPSULE PO ×3 (05:43→22:02)
[2024-09-20] MEDS: PIPER/TAZO 3.375 GM PREMIX 3.375 GM/50 ML BAG IV ×3 (05:43→22:02)
[2024-09-20] MEDS: DOCUSATE SOD 100 MG CAPSULE PO (08:26)
[2024-09-20] MEDS: PANTOPRAZOLE 40 MG TABLET PO (08:26)
[2024-09-20] MEDS: DOXYCYCLINE 100 MG TABLET PO (08:26)
[2024-09-20] MEDS: ASPIRIN EC 81 MG TABEC PO (08:26)
[2024-09-20] MEDS: FOLIC ACID 1 MG TABLET PO ×2 (08:26→21:12)
[2024-09-20] MEDS: THIAMINE 100 MG TABLET PO ×2 (08:26→21:12)
--- NOTE | 2024-09-20 09:11 | PD.SURCONS ---
HPI Consult details History of present illness: 79M with DM, sciatica who presented to ER due to a foot wound. 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 X-rays negative for cortical bone destruction PMH: DM, sciatica PSH: Hernia repair Meds: ASA 81, no other antiplatelet or anticoagulation Allergies: NKDA Social history: No cigarette smoking Review of Systems Review of Systems ROS Unobtainable: All systems reviewed & no additional complaints except as documented Meds Home Medications and Allergies Home Medications ?Medication ?Instructions ?Recorded ?Confirmed ?Type aspirin 81 mg tablet 81 mg PO QDAY 09/19/24 09/19/24 History atorvastatin 20 mg tablet (Lipitor) 20 mg PO QDAY 09/19/24 09/19/24 History gabapentin 300 mg capsule 300 mg PO Q8H PRN back pain 09/19/24 09/19/24 History metformin 500 mg tablet 500 mg PO BIDWMEAL 09/19/24 09/19/24 History omeprazole 20 mg capsule,delayed 20 mg PO QDAY 09/19/24 09/19/24 History release Allergies Allergy/AdvReac Type Severity Reaction Status Date / Time No Known Allergies Allergy Verified 09/19/24 14:41 Exam Vital Signs Temp Pulse Resp BP Pulse Ox O2 Del Method O2 Flow Rate 98.9 F 66 15 156/82 H 96 Room Air 6 09/20/24 08:00 09/20/24 08:00 09/20/24 08:00 09/20/24 08:00 09/20/24 08:00 09/20/24 08:00 09/19/24 14:29 Constitutional Constitutional: no acute distress Routine Respiratory Exam Respiratory: Present no resp distress Routine Extremities Exam Comments: Left foot with erythema just proximal to the fifth toe, and an ulceration on the plantar surface of the foot which is draining pus Results Results: Laboratory Laboratory results: results reviewed Results: Imaging Imaging narrative: X-ray was reviewed Assessment & Plan Plan 79M with DM, sciatica presenting with a left foot abscess. I explained that because of the erythema it would be beneficial to extend the existing ulceration to allow for better drainage of pus. As it will be straightforward I recommended bedside incision and drainage and explained the risks of pain, bleeding and need for further procedures which patient agreed to I&D of left foot abscess this AM
--- NOTE | 2024-09-20 09:17 | ESPR_ITS ---
Documentation for date of: 09/20/24 Subjective Subjective Interval history: Patient was seen and examined at bedside. No acute overnight events. Patient still complaining of diabetic neuropathy, gabapentin was restarted, hemodynamically patient appears to be stable, blood pressure is 156/82, on lisinopril dose which was restarted. Further labs revealed improvement of leukocytosis, WBC down trended to 13, the rest of the labs insignificant. Surgery evaluated the patient, will have a I&D done today. Troponin slightly up trended, will follow-up with repeat troponin, continue to trend, echo was taken, will follow-up with results. Cardiology is on board, Exam Vital Signs Temp Pulse Resp BP Pulse Ox O2 Del Method O2 Flow Rate 98.9 F 66 15 156/82 H 96 Room Air 6 09/20/24 08:00 09/20/24 08:00 09/20/24 08:00 09/20/24 08:00 09/20/24 08:00 09/20/24 08:00 09/19/24 14:29 Narrative Exam GENERAL: no acute distress, AAO x3, well nourished. HEENT: Head AT/ NC. Mucous membranes moist. PERRL. NECK: Supple, no lymphadenopathy, no carotid bruits. CARDIOVASCULAR: RRR. Normal S1/S2, No m/r/g. No pitting edema of bilateral LEs. RESPIRATORY: CTAB. No wheezing, rhonchi, crackles. GASTROINTESTINAL: Abdomen soft, non tender no palpable masses. Bowel sounds present in all 4 quadrants. MUSCULOSKELETAL:? No cyanosis or edema, no visible joint swelling.Left lower extremity wound on the lateral side of the sole draining puslike fluid, no pain on palpation. Pedal pulses present B/L NEUROLOGICAL: CN II-XII grossly intact. No focal deficits. Decreased sensation on bilateral lower extremity plantar surfaces. PSYCHIATRIC: Awake and alert, not agitated, normal mood and affect. INTEGUMENTARY: No obvious rashes, no jaundice, normal turgor. Objective Labs 09/21/24 05:23 09/21/24 05:23 Labs: Laboratory Results - last 24 hr 09/19/24 09/19/24 09/19/24 15:05 17:07 17:15 WBC 17.8 H RBC 4.11 L Hgb 13.9 Hct 37.9 L MCV 92 MCH 33.8 MCHC 36.7 RDW Std Deviation 41.8 Plt Count 217 Neut % (Auto) 80 Lymph % (Auto) 6 L [place] % (Auto) 12 Eos % (Auto) 0 Baso % (Auto) 1 Neut # (Auto) 14.3 H Lymph # (Auto) 1.1 [place] # (Auto) 2.1 H Eos # (Auto) 0.0 Baso # (Auto) 0.1 Immature Gran # (Auto) 0.18 H Absolute Nucleated RBC 0.00 Immature Gran % 1 H Nucleated RBC % 0 PT 12.7 H INR 1.2 APTT 30.2 Sodium 133 L Potassium 3.5 Chloride 99 Carbon Dioxide 23.6 Anion Gap 10 BUN 14 Creatinine 1.1 Estim Creat Clear Calc 56.8 L eGFR > 60 BUN/Creatinine Ratio [address] Glu mg/dL Hemoglobin A1c Calculated Osmolality 271 L Lactic Acid 1.3 Calcium 9.0 Corrected Calcium 9.0 Phosphorus 2.3 L Magnesium 1.9 Total Bilirubin 1.3 H AST 69 H ALT 57 H Alkaline Phosphatase 84 Lactate Dehydrogenase 252 H Troponin I 0.670 H* 0.772 H* B-Natriuretic Peptide 304 H Total Protein 6.7 Albumin 4.3 Globulin 2.4 Albumin/Globulin Ratio 1.8 Lipase 27 Procalcitonin 1.52 H Ur Collection Type Urine Color Urine Clarity Urine pH Ur Specific [place] Urine Protein Urine Glucose (UA) Urine Ketones Urine Blood Urine Nitrite Urine Bilirubin Urine Urobilinogen (Auto) Ur Leukocyte Esterase Urine RBC Urine WBC Ur Squamous Epith Cells Urine Bacteria SARS-CoV-2 Ag (Rapid) Negative 09/19/24 09/19/24 09/20/24 20:13 21:47 03:11 WBC 16.0 H RBC 4.21 L Hgb 14.1 Hct 39.8 L MCV 95 MCH 33.5 MCHC 35.4 RDW Std Deviation 42.9 Plt Count 198 Neut % (Auto) 82 H Lymph % (Auto) 8 L [place] % (Auto) 9 Eos % (Auto) 0 Baso % (Auto) 0 Neut # (Auto) 13.2 H Lymph # (Auto) 1.3 [place] # (Auto) 1.5 H Eos # (Auto) 0.0 Baso # (Auto) 0.1 Immature Gran # (Auto) 0.07 H Absolute Nucleated RBC 0.00 Immature Gran % 0 Nucleated RBC % 0 PT INR APTT Sodium 136 Potassium 3.9 Chloride 102 Carbon Dioxide 23.8 Anion Gap 10 BUN 11 Creatinine 0.9 Estim Creat Clear Calc 69.4 eGFR > 60 BUN/Creatinine Ratio [address]ucose [address] Glu mg/dL 114 Hemoglobin A1c 5.6 Calculated Osmolality 274 L Lactic Acid Calcium 8.8 Corrected Calcium 8.8 Phosphorus 2.4 Magnesium 2.0 Total Bilirubin 1.6 H AST 44 H ALT 50 H Alkaline Phosphatase 76 Lactate Dehydrogenase Troponin I 0.652 H* 0.691 H* B-Natriuretic Peptide Total Protein 6.3 Albumin 4.3 Globulin 2.0 L Albumin/Globulin Ratio 2.2 Lipase Procalcitonin Ur Collection Type Clean Catch Urine Color Yellow Urine Clarity Clear Urine pH 5.5 Ur Specific [place] 1.022 Urine Protein Trace Urine Glucose (UA) Trace Urine Ketones 1+ A Urine Blood Negative Urine Nitrite Negative Urine Bilirubin Negative Urine Urobilinogen (Auto) 3.0 Ur Leukocyte Esterase Negative Urine RBC 1 Urine WBC 1 Ur Squamous Epith Cells 0 Urine Bacteria None SARS-CoV-2 Ag (Rapid) Quality Measures Quality Measures VTE prophylaxis Advance care planning discussed with:: patient Assessment & Plan Assessment Current Active Medications: Generic Name Dose Route Start Last Admin Trade Name Freq PRN Reason Stop Dose Admin Acetaminophen 650 mg 09/19/24 20:45 Acetaminophen 325 Mg Tablet PO 10/19/24 20:44 Q6H PRN Fever >100.4 Acetaminophen 1,000 mg 09/19/24 20:45 Acetaminophen 325 Mg Tablet PO 10/19/24 20:44 Q6H PRN PAIN SCALE 1-3 (mild Aspirin 81 mg 09/20/24 09:00 09/20/24 08:26 Aspirin Ec 81 Mg Tabec PO 10/20/24 08:59 81 mg QDAY SHANNAN Administration Atorvastatin Calcium 20 mg 09/19/24 21:00 09/19/24 21:01 Atorvastatin Calcium 20 Mg Tablet PO 10/19/24 20:59 20 mg HS SHANNAN Administration Dextrose 25 ml 09/19/24 21:03 Dextrose 50%-Water Inj 50 Ml Syringe IV 10/19/24 21:02 Q15MIN PRN BG 50-70 responsive npo pt Dextrose 50 ml 09/19/24 21:03 Dextrose 50%-Water Inj 50 Ml Syringe IV 10/19/24 21:02 Q15MIN PRN BG <50 OR BG <70 & pt unresponsive Docusate Sodium 100 mg 09/20/24 09:00 09/20/24 08:26 Docusate Sod 100 Mg Capsule PO 10/20/24 08:59 100 mg QDAY SHANNAN Administration Protocol Doxycycline Hyclate 100 mg 09/19/24 21:00 09/20/24 08:26 Doxycycline 100 Mg Tablet PO 09/26/24 20:59 100 mg BID SHANNAN Administration Folic Acid 1 mg 09/19/24 21:15 09/20/24 08:26 Folic Acid 1 Mg Tablet PO 09/24/24 21:14 1 mg BID SHANNAN Administration Gabapentin 300 mg 09/19/24 22:00 09/20/24 05:43 Gabapentin 300 Mg Capsule PO 10/19/24 21:59 300 mg TID SHANNAN Administration Glucagon 1 mg 09/19/24 21:03 Glucagon Inj 1 Mg Vial IM Q15MIN PRN BG <70, and no IV access Heparin Sodium (Porcine) 5,000 unit 09/19/24 22:00 09/20/24 05:43 Heparin Sod Inj 5000 Unit/Ml Vial SC 10/03/24 21:59 5,000 unit Q8HR SHANNAN Administration Piperacillin/Tazobactam/Dextrose 3.375 gm in 50 mls @ 12.5 mls/hr 09/19/24 20:58 09/20/24 05:43 Zosyn IV 09/26/24 20:57 12.5 mls/hr Q8HR SHANNAN Administration Insulin Human Lispro 0 unit 09/20/24 07:30 09/20/24 07:42 Insulin Lispro (Admelog) 1 Unit/0.01 Ml Unit SC 10/20/24 07:29 Not Given [facility] Protocol Lorazepam 0.5 mg 09/19/24 21:08 Lorazepam 2 Mg/Ml Vial IV 09/24/24 21:07 Q2HR PRN CIWA SCORE 7-13 Lorazepam 1 mg 09/19/24 21:08 Lorazepam 2 Mg/Ml Vial IV 09/24/24 21:07 Q2HR PRN CIWA SCORE 14-19 Lorazepam 2 mg 09/19/24 21:08 Lorazepam 2 Mg/Ml Vial IV 09/24/24 21:07 Q2HR PRN CIWA SCORE 20-25 Lorazepam 0.5 mg 09/19/24 21:08 Lorazepam 0.5 Mg Tablet PO 09/24/24 21:07 Q4HR PRN CIWA Score 2-6 Ondansetron HCl 4 mg 09/19/24 20:45 Ondansetron Inj 2 Mg/Ml Inj 2 Ml IVP 10/19/24 20:44 Q6H PRN NAUSEA OR VOMITING Protocol Pantoprazole Sodium 40 mg 09/20/24 09:00 09/20/24 08:26 Pantoprazole 40 Mg Tablet PO 10/20/24 08:59 40 mg QDAY SHANNAN Administration Thiamine HCl 100 mg 09/19/24 21:15 09/20/24 08:26 Thiamine 100 Mg Tablet PO 09/24/24 21:14 100 mg BID SHANNAN Administration Plan 79-year-old male with past medical history of diabetes, sciatica, remote history of valley fever 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 #Left lower extremity abcess Pain, swelling, redness, warmth due to above Leukocytosis, tachycardia, afebrile Has pus draining from wound site Chest x-ray shows early left base pneumonia Foot x-ray shows soft tissue infection of fifth metatarsal ? Vanc ? Zosyn ? Surgery consulted plan is to do I&D, and continue ? Follow-up cultures #Elevated troponins ? Cardio consulted, agreed with current managment ? Trend troponins ? Echo is pending #?GPC bacteremia 1/2 prelim BC + for GPC -added Vancomycin -repeat BC -follow with final results #Elevated liver enzymes/T. bili Likely in the setting of alcohol use ? Gallbladder ultrasound negative biliary tract extraction, revealed fatty liver. #Diabetes mellitus type 2 ? SSI ? Hypoglycemia protocol in place #Alcohol use disorder ? Thiamine ? Folic acid ? CIWA protocol currently dowsn't have any w/d symptoms #Early left base pneumonia only seen on Xray. Afebrile, does not complain of any shortness of breath, cough resolving air saturating well - Continue close monitor Health Maintenance: Disposition: Med telemetry Feeding: Carb consistent low Thrombo prophylaxis: Heparin Gastric Ulcer prophylaxis: Pantoprazole CODE STATUS: DNR Patient care was discussed with attending physician Dr. Gay Rajput MD PGY-2 I have carefully reviewed this document. Due to imperfections in the voice software, there could be grammatical errors including phonetic/typographic errors. This in no way compromises the medical care the patient is receiving Attending Provider Attestation/Addendum I have examined the patient, reviewed labs and imaging findings, discussed the case with the resident(s), and reviewed entered orders. I agree with the plan of care as outlined in this note, with these additional summaries/recommendations: Patient seen at bedside. No acute overnight events. Patient admitted overnight for left lower extremity cellulitis and abscess. Patient was started on IV antibiotics and blood cultures taken. General surgery was consulted and patient underwent incision and drainage of abscess with general surgery. He tolerated procedure well. Continue pain management. Wound care as needed. Tight blood sugar control to promote wound healing. Patient was also noted to have elevated troponins which peaked at 0.772. No acute ST changes indicative of acute ischemia. Cardiology consulted with plans for possible invasive workup inpatient versus outpatient. Blood cultures now showing GPC and vancomycin added to regimen. Continue insulin sliding scale for diabetes mellitus type 2 and target blood sugar of 140-180 while hospitalized. Patient does have a history of alcohol use although has not required CIWA yet. Will monitor to see if withdrawal symptoms develop. Minimal hyperbilirubinemia present today and likely secondary to dehydration. Repeat chemistry panel in AM. Patient updated on the plan and in agreement. All questions answered to satisfaction. Please see residents note for additional details and management. Dr. Gay MD
--- NOTE | 2024-09-20 10:07 | ESCONSULT_ITS ---
HPI Data of Consult Requesting Physician: Watson Rashid MD Primary Care Provider: Lars Salazar MD Consult Narrative History of present illness: This is a 79-year-old male with past medical history of diabetes, sciatica, remote history of valley fever Patient was seen in the emergency room with a foot infection He was evaluated by branch service specialist and recommended admission 3 days ago patient complains of flulike symptoms fever cough Patient complains of pain in the legs mostly on the left leg since No prior cardiac history noted Cardiology consultation requested as patient's troponin was elevated patient's troponin was 0.7, 0.6, 0.69 Currently patient denies any chest pain neck pain left arm pain shortness of breath Review of patient's multiple comorbidities elevated troponin cardiology consultation requested cc:: cc: Watson Rashid MD Meds Home Medications and Allergies Home Medications ?Medication ?Instructions ?Recorded ?Confirmed ?Type aspirin 81 mg tablet 81 mg PO QDAY 09/19/2409/19 History atorvastatin 20 mg tablet (Lipitor) 20 mg PO QDAY 08/2609/19/24 History gabapentin 300 mg capsule 300 mg PO Q8H PRN back pain 09/19/24 09/19/24 History metformin 500 mg tablet 500 mg PO BIDWMEAL 09/19/24 09/19/24 History omeprazole 20 mg capsule,delayed 20 mg PO QDAY 5 09/19/24 History release Allergies Allergy/AdvReac Type Severity Reaction Status Date / Time No Known Allergies Allergy Verified 09/19/24 14:41 Exam Vital Signs Temp Pulse Resp BP Pulse Ox O2 Del Method O2 Flow Rate 98.9 F 66 15 156/82 H 96 Room Air 6 09/20/24 08:00 09/20/24 08:00 09/20/24 08:00 09/20/24 08:00 09/20/24 08:00 09/20/24 08:00 09/19/24 14:29 Routine HEENT Exam Head: Present normocephalic and atraumatic Eye: Present EOMI and PERRL ENT: Present mucous membranes moist Routine Neck Exam Neck: Present supple and trachea midline Routine Respiratory Exam Respiratory: Present chest non-tender, lungs clear, normal breath sounds and no resp distress Routine Cardiovascular Exam Cardiovascular: Present RRR Routine Abdominal Exam Abdominal: Present soft and normoactive bowel sounds Routine Extremities Exam Extremities: Present full ROM Routine Skin Exam Skin: Present intact, dry and warm Routine Neurological Exam Neurological: Present alert, oriented X3 and CN II-XII intact Routine Psychiatric Exam Psychiatric: Present normal affect and normal thought process Results Labs 09/20/24 03:11 09/20/24 03:11 Labs: Short CBC 09/19/24 09/20/24 Range/Units 15:05 03:11 WBC 17.8 H 16.0 H (3.8-10.6) Thou/mm3 Hgb 13.9 14.1 (13.5-16.0) g/dL Hct 37.9 L 39.8 L (41.0-53.0) % Plt Count 217 198 (140-440) Thou/mm3 BMP 09/19/24 09/20/24 15:05 03:11 Sodium 133 L 136 Potassium 3.5 3.9 Chloride 99 102 Carbon Dioxide 23.6 23.8 BUN 14 11 Creatinine 1.1 0.9 Glucose 180 H 158 H Calcium 9.0 8.8 Cardiac Enzymes 09/19/24 09/19/24 09/19/24 Range/Units 15:05 17:15 21:47 Troponin I 0.670 H* 0.772 H* 0.652 H* (0.0-0.045) ng/mL 09/20/24 Range/Units 03:11 Troponin I 0.691 H* (0.0-0.045) ng/mL Liver Function 09/19/24 09/20/24 Range/Units 15:05 03:11 Total Bilirubin 1.3 H 1.6 H (0.3-1.2) mg/dL AST 69 H 44 H (0-34) U/L ALT 57 H 50 H (10-49) U/L Alkaline Phosphatase 84 76 (46-116) U/L Albumin 4.3 4.3 (3.4-4.8) gm/dL Urine 09/19/24 Range/Units 20:13 Urine Color Yellow (Lt Yel-Yel) Urine Clarity Clear (Clear/Hazy) Urine pH 5.5 (5.0-7.0) Ur Specific [place] 1.022 (1.001-1.035) Urine Protein Trace (Neg - Trace) Urine Glucose (UA) Trace (Negative) Assessment and Plan Assessment and plan (1) Elevated troponin: Status: Acute (2) Hypertension: Status: Acute (3) Diabetes 1.5, managed as type 2: Status: Acute (4) Peripheral vascular disease: Status: Acute Additional Assessment & Plan Additional Plan: Patient has elevated troponin EKG is unremarkable However patient has significant comorbidities including diabetes hypertension most likely peripheral vascular disease Recommend echocardiographic exam Patient will require further evaluation possibly invasive assessment We will continue current treatment for now
[2024-09-20] MEDS: MORPHINE SULF INJ 10 MG/ML VIAL 2 MG IVP (10:12)
[2024-09-20 10:30] LABS: Troponin I 0.599 ng/mL (0.0-0.045)
--- NOTE | 2024-09-20 10:31 | PD.SURPROC ---
PROCEDURES: Procedure Comment Procedure Comment: Informed consent obtained Timeout performed Morphine 2mg IV administered Area cleansed with betadine Wound culture taken Pt tolerated procedure well Abscess I/D Site: foot Side (if applicable): left Sedation/analgesia: other (Morphine 2mg IV) Technique: other (Existing ulceration on the plantar surface of the foot was extended laterally with a #15 blade with no purulent output, I then made a longitudinal incision just proximal to the 5th toe with expression of approx 10cc pus) Irrigation: Yes (Saline) Packing used?: iodoform (03/30 )
--- NOTE | 2024-09-20 10:32 | PC.NURSE ---
incision and drainage done @ bedside by dr. rosa. tolerated procedure well kept comfortable in bed
[2024-09-20] MEDS: VANCOMYCIN/WATER 1250 MG IVPB 250 ML 120 MG IV (11:37)
--- NOTE | 2024-09-20 14:31 | PC.SS ---
Rounding note: cardiology is consulting and procedure with Dr. Garrison.
--- NOTE | 2024-09-20 16:25 | PC.SS ---
Initial assessment: patient is a 79-year old male admitted for foot infection. Patient is alert and oriented to self, place and situation. Patient informs he is currently living with his brother, Eugenio Barrett and his brothers . Patient does not have their home address. Patient informs he normally uses a walker at home to assist with ambulation. Patient states his PCP is Dr. Lars Salazar at [facility]. Patient informs he follows the wound center for wound care. The discharge plan was discussed and the patient is interested in SNF. No preferred agency, therefore community resource handout with SNF listings provided to the patient. Patient informs his brother, Eugenio should be contacted for any emergencies. D/c plan: SNF Next of kin: brotherEugenio [phone]
--- NOTE | 2024-09-20 16:34 | PC.SS ---
Addendum entered by KLAUDIA Hogan 09/20/24 16:40: SNF inquiry sent via [employer]. Original Note: PASRR completed.
[2024-09-20] MEDS: LIDOCAINE 5% 1 PATCH TOP (19:45)
[2024-09-20] MEDS: ATORVASTATIN CALCIUM 20 MG TABLET PO (21:12)
[2024-09-20] MEDS: VANCOMYCIN/NS 1 GM IVPB 200 ML IV (21:12)
--- NOTE | 2024-09-20 21:25 | ECHO_ITS ---
Transthoracic Echo Report Ht (in): 73 Wt (lb): 167 Exam Location: Echo Lab Status: Inpatient Labor Service Representative: Janette Aguero Indications: Procedure Performed: BP: 147 / 91 HR: 69 Technical Quality: Techncially Difficult Due To Body Habitus MEASUREMENTS (Male / Female) Normal Values 2D ECHO LV Diastolic Diameter PLAX 4.6 cm 4.2 - 5.9 / 3.9 - 5.3 cm LV Systolic Diameter PLAX 3.3 cm IVS Diastolic Thickness 0.7 cm 0.6 - 1.0 / 0.6 - 0.9 cm LVPW Diastolic Thickness 0.8 cm 0.6 - 1.0 / 0.6 - 0.9 cm LV Relative Wall Thickness 0.3 LVOT Diameter 2.0 cm LA Volume Index 40.0 cm?/m? 16 - 28 cm?/m? DOPPLER AV Peak Velocity 164.0 cm/s AV Peak Gradient 10.8 mmHg LVOT Peak Velocity 99.4 cm/s LVOT Peak Gradient 4.0 mmHg AV Area Cont Eq pk 1.9 cm? MV Peak Velocity 122.0 cm/s MV Peak Gradient 6.0 mmHg MV Mean Velocity 67.2 cm/s MV Mean Gradient 2.0 mmHg MV Area PHT 3.9 cm? Mitral E Point Velocity 101.0 cm/s Mitral A Point Velocity 109.0 cm/s Mitral E to A Ratio 0.9 FINDINGS Left Ventricle Normal left ventricular size, wall thickness, systolic function with no obvious regional wall motion abnormalities. The ejection fraction is visually estimated at 65 %. Can not determine diastology due to moderate mitral annular calcification. Right Ventricle The right ventricular size is moderately increased. . The estimated right ventricular systolic pressure can not be determined due to innadequate Doppler signal. Left Atrium The left atrial cavity size is moderately increased. Right Atrium The right atrial cavity size is moderately increased. Atrial Septum The interatrial septum appears normal with no evidence of a shunt. Aorta The aorta is normal by two-dimensional, color flow and Doppler interrogation. Mitral Valve Moderate mitral annular calcification. . There is no significant mitral valve regurgitation, stenosis or prolapse. Aortic Valve Moderate thickening of the aortic valve leaflets. . There is no significant aortic valve regurgitation. Tricuspid Valve The tricuspid valve is normal by two-dimensional, color flow and Doppler interrogation. There is no significant tricuspid valve regurgitation. Pulmonic Valve The pulmonic valve is not well visualized. There is no significant pulmonic valve regurgitation. Vessels The pulmonary artery appears normal. The inferior vena cava is dilated. Pericardium The pericardium is normal by two-dimensional imaging. There is no significant pericardial effusion. CONCLUSIONS Indications: Elevated Troponins Normal LV. Estimated EF 65%. Moderate RVE. Moderate ADEEL. Moderate MAC. Moderate AOV Calcification. Dilated IVC. No Pericardial Effusion. Gosia Stafford (Electronically Signed) Final Date: 20 September 2024 13:37
[2024-09-21] VITALS (8 sets, daily range): BP systolic 111–145; BP diastolic 60–85; PULSE 70–85; RESP 12–98; TEMP 36.2–37.7; O2SAT 93–97; BMI 22.0
[2024-09-21] MEDS: PIPER/TAZO 3.375 GM PREMIX 3.375 GM/50 ML BAG IV ×3 (05:30→21:20)
[2024-09-21] MEDS: GABAPENTIN 300 MG CAPSULE PO ×3 (05:31→23:28)
[2024-09-21] MEDS: HEPARIN SOD INJ 5000 UNIT/ML VIAL SC ×3 (05:31→21:20)
[2024-09-21 06:21] LABS: Basophils # (Auto) 0.1 Thou/mm3 (0.0-0.2); Basophils % (Auto) 0 % (0-2.5); Eosinophils # (Auto) 0.0 Thou/mm3 (0.0-0.5); Eosinophils % (Auto) 0 % (0-10); Hematocrit 36.2 % (41.0-53.0); Hemoglobin 12.8 g/dL (13.5-16.0); Immature Granulocytes Auto 0.09 Thou/mm3 (0.00-0.00); Lymphocytes # (Auto) 1.3 Thou/mm3 (1.0-4.8); Lymphocytes % (Auto) 9 % (10-50); Mean Corpuscular HGB Conc 35.4 g/dl (31.0-37.0); Mean Corpuscular Hemoglobin 34.0 pg (25.0-35.0); Mean Corpuscular Volume 96 fL (80-100); Monocytes # (Auto) 1.6 Thou/mm3 (0.0-0.8); Monocytes % (Auto) 11 % (0-12); Neutrophils # (Auto) 11.6 Thou/mm3 (1.8-7.7); Neutrophils % (Auto) 79 % (37-80); Nucleated Red Blood Cell # 0.00 Thou/mm3 (0.00-0.00); Nucleated Red Blood Cell % 0 /100 WBC (0); Platelet Count 199 Thou/mm3 (140-440); RDW Standard Deviation 43.0 fL (35.1-43.9); Red Blood Count 3.76 Miln/mm3 (4.50-5.90); White Blood Count 14.6 Thou/mm3 (3.8-10.6)
[2024-09-21 06:50] LABS: Alanine Aminotransferase 36 U/L (10-49); Albumin, Serum 3.7 gm/dL (3.4-4.8); Albumin/Globulin Ratio 1.6 (1.2-2.2); Alkaline Phosphatase 92 U/L (46-116); Anion Gap 10 (7-16); Aspartate Amino Transferase 26 U/L (0-34); BUN/Creatinine Ratio 11 Ratio (12-20); Bilirubin,Total 1.6 mg/dL (0.3-1.2); Blood Urea Nitrogen 11 mg/dL (9-23); Calcium 8.4 mg/dL (8.3-10.6); Calcium (Corrected) 8.6 mg/dL (8.5-10.1); Carbon Dioxide 25.0 mMol/L (20.0-31.0); Chloride 101 mMol/L (98-107); Creatinine (Component) 1.0 mg/dL (0.6-1.3); Estimated Creatinine Clearance 65.2 mL/min (>60); Globulin 2.3 gm/dL (2.3-3.5); Glucose 162 mg/dL (74-106); Magnesium 2.0 mg/dL (1.6-2.6); Osmolality,Calculated 275 (275-295); Phosphorous 1.3 mg/dL (2.4-5.1); Potassium 3.5 mMol/L (3.4-5.1); Sodium 136 mMol/L (136-145); Total Protein 6.0 gm/dL (5.7-8.2); eGFR > 60 See Note
[2024-09-21] MEDS: INSULIN LISPRO (AdmeLOG) 1 UNIT/0.01 ML UNIT SC ×2 (07:45→12:14)
[2024-09-21] MEDS: PANTOPRAZOLE 40 MG TABLET PO (08:14)
[2024-09-21] MEDS: THIAMINE 100 MG TABLET PO ×2 (08:14→20:38)
[2024-09-21] MEDS: DOCUSATE SOD 100 MG CAPSULE PO (08:14)
[2024-09-21] MEDS: FOLIC ACID 1 MG TABLET PO ×2 (08:15→20:38)
[2024-09-21] MEDS: ASPIRIN EC 81 MG TABEC PO (08:15)
[2024-09-21] MEDS: NAPH,KPH MBDB 1 PACKET (1.5 GM) PO ×2 (09:24→20:38)
[2024-09-21] MEDS: VANCOMYCIN/NS 1 GM IVPB 200 ML IV ×2 (10:30→23:15)
--- NOTE | 2024-09-21 11:43 | ESPR_ITS ---
Documentation for date of: 09/21/24 Subjective Subjective Interval history: Cardiac catheterization coronary angiogram explained to the patient Risk benefits and alternatives explained patient and the family wants to proceed for further assessment of coronary artery disease this will be scheduled on Monday Exam Vital Signs Temp Pulse Resp BP Pulse Ox O2 Del Method O2 Flow Rate 99.3 F 77 23 H 119/61 97 Room Air 6 09/21/24 08:00 09/21/24 08:00 09/21/24 08:00 09/21/24 08:00 09/21/24 08:00 09/21/24 08:00 09/20/24 15:54 Routine HEENT Exam Head: Present normocephalic and atraumatic Eye: Present EOMI and PERRL ENT: Present mucous membranes moist Routine Neck Exam Neck: Present supple and trachea midline Routine Respiratory Exam Respiratory: Present chest non-tender, lungs clear, normal breath sounds and no resp distress Routine Cardiovascular Exam Cardiovascular: Present RRR Routine Abdominal Exam Abdominal: Present soft and normoactive bowel sounds Routine Extremities Exam Extremities: Present full ROM Routine Skin Exam Skin: Present intact, dry and warm Routine Neurological Exam Neurological: Present alert, oriented X3 and CN II-XII intact Routine Psychiatric Exam Psychiatric: Present normal affect and normal thought process Objective Labs 09/21/24 05:23 09/21/24 05:23 Labs: Laboratory Results - last 24 hr 09/21/24 05:23 WBC 14.6 H RBC 3.76 L Hgb 12.8 L Hct 36.2 L MCV 96 MCH 34.0 MCHC 35.4 RDW Std Deviation 43.0 Plt Count 199 Neut % (Auto) 79 Lymph % (Auto) 9 L [place] % (Auto) 11 Eos % (Auto) 0 Baso % (Auto) 0 Neut # (Auto) 11.6 H Lymph # (Auto) 1.3 [place] # (Auto) 1.6 H Eos # (Auto) 0.0 Baso # (Auto) 0.1 Immature Gran # (Auto) 0.09 H Absolute Nucleated RBC 0.00 Immature Gran % 1 H Nucleated RBC % 0 Sodium 136 Potassium 3.5 Chloride 101 Carbon Dioxide 25.0 Anion Gap 10 BUN 11 Creatinine 1.0 Estim Creat Clear Calc 65.2 eGFR > 60 BUN/Creatinine Ratio 11 L Glucose 162 H Calculated Osmolality 275 Calcium 8.4 Corrected Calcium 8.6 Phosphorus 1.3 L Magnesium 2.0 Total Bilirubin 1.6 H AST 26 ALT 36 Alkaline Phosphatase 92 D Total Protein 6.0 Albumin 3.7 D Globulin 2.3 Albumin/Globulin Ratio 1.6 Assessment & Plan A&P Narrative Heart cath will be scheduled for Monday Time Spent With Patient Time: Total time spent is greater than 50% in coordination of care (as documented) at patient's floor/unit and/or counseling patient:
--- NOTE | 2024-09-21 13:06 | PC.NURSE ---
patient complaining of left rib cage pain . called dr. joseluis burdick and made aware.no new order received. continue to monitor.
[2024-09-21] MEDS: LIDOCAINE 5% 1 PATCH TOP (13:38)
--- NOTE | 2024-09-21 13:40 | PD.RESPRO ---
Documentation for date of: 09/21/24 Subjective Subjective Interval history: Patient examined at bedside. No events overnight. Has no major complaints denies any chest pain or shortness of breath. Vital signs are stable. Troponins have peaked. After evaluation by cardiology, there is concern for heart disease due to underlying comorbidities. Patient is scheduled to undergo cardiac cath this Monday. Leukocytosis improving with WBC 14, creatinine 1.0. Continue vancomycin and Zosyn for treatment of GPC bacteremia secondary to foot infection. He had incision and drainage completed yesterday with no complications. No active bleeding noticed at this time. Resumed home pain medications and will repeat blood cultures. He is on CIWA protocol but not exhibiting any signs of withdrawal. Plan to DC CIWA tomorrow. Exam Vital Signs Temp Pulse Resp BP Pulse Ox O2 Del Method O2 Flow Rate 99.8 F 79 20 120/68 95 Room Air 6 09/21/24 12:00 09/21/24 12:00 09/21/24 12:09/21/24 12:09/21/24 12:09/21/24 12:00 09/20/24 15:54 Narrative Exam General: Elderly male, No acute distress, cooperative HEENT: NCAT, No JVD noted. Mucosa moist. Pupils are equal and reactive to light bilaterally Cardiovascular: Normal S1 and S2. Regular rate and rhythm. Respiratory: Lungs are clear to auscultation bilaterally. No wheezing or crackles heard. Abdomen: Soft, nontender, not distended, normal bowel sounds. Skin: Warm to touch, dry, no rashes noted, left foot in kerlix rolls, no bleeding Musculoskeletal: No gross injuries. Able to move all 4 extremities. No pitting edema Neuro: Alert and oriented x3. No focal neuro deficits. Psych: Normal affect and mood Objective Labs 09/22/24 05:10 09/22/24 05:10 Labs: Laboratory Results - last 24 hr 09/21/24 05:23 WBC 14.6 H RBC 3.76 L Hgb 12.8 L Hct 36.2 L MCV 96 MCH 34.0 MCHC 35.4 RDW Std Deviation 43.0 Plt Count 199 Neut % (Auto) 79 Lymph % (Auto) 9 L [place] % (Auto) 11 Eos % (Auto) 0 Baso % (Auto) 0 Neut # (Auto) 11.6 H Lymph # (Auto) 1.3 [place] # (Auto) 1.6 H Eos # (Auto) 0.0 Baso # (Auto) 0.1 Immature Gran # (Auto) 0.09 H Absolute Nucleated RBC 0.00 Immature Gran % 1 H Nucleated RBC % 0 Sodium 136 Potassium 3.5 Chloride 101 Carbon Dioxide 25.0 Anion Gap 10 BUN 11 Creatinine 1.0 Estim Creat Clear Calc 65.2 eGFR > 60 BUN/Creatinine Ratio 11 L Glucose 162 H Calculated Osmolality 275 Calcium 8.4 Corrected Calcium 8.6 Phosphorus 1.3 L Magnesium 2.0 Total Bilirubin 1.6 H AST 26 ALT 36 Alkaline Phosphatase 92 D Total Protein 6.0 Albumin 3.7 D Globulin 2.3 Albumin/Globulin Ratio 1.6 Quality Measures Quality Measures none Advance care planning discussed with:: patient Assessment & Plan Assessment Current Active Medications: Generic Name Dose Route Start Last Admin Trade Name Freq PRN Reason Stop Dose Admin Acetaminophen 1,000 mg 09/19/24 20:45 Acetaminophen 325 Mg Tablet PO 10/19/24 20:44 Q6H PRN PAIN SCALE 1-3 (mild Acetaminophen 650 mg 09/20/24 18:56 Acetaminophen 325 Mg Tablet PO 10/19/24 20:44 Q6H PRN FEVER > 100.4 Aspirin 81 mg 09/20/24 09:00 09/21/24 08:15 Aspirin Ec 81 Mg Tabec PO 10/20/24 08:59 81 mg QDAY SHANNAN Administration Atorvastatin Calcium 20 mg 09/19/24 21:00 09/20/24 21:12 Atorvastatin Calcium 20 Mg Tablet PO 10/19/24 20:59 20 mg HS SHANNAN Administration Dextrose 25 ml 09/19/24 21:03 Dextrose 50%-Water Inj 50 Ml Syringe IV 10/19/24 21:02 Q15MIN PRN BG 50-70 responsive npo pt Dextrose 50 ml 09/19/24 21:03 Dextrose 50%-Water Inj 50 Ml Syringe IV 10/19/24 21:02 Q15MIN PRN BG <50 OR BG <70 & pt unresponsive Docusate Sodium 100 mg 09/20/24 09:00 09/21/24 08:14 Docusate Sod 100 Mg Capsule PO 10/20/24 08:59 100 mg QDAY SHANNAN Administration Protocol Folic Acid 1 mg 09/19/24 21:15 09/21/24 08:15 Folic Acid 1 Mg Tablet PO 09/24/24 21:14 1 mg BID SHANNAN Administration Gabapentin 300 mg 09/19/24 22:00 09/21/24 05:31 Gabapentin 300 Mg Capsule PO 10/19/24 21:59 300 mg TID SHANNAN Administration Glucagon 1 mg 09/19/24 21:03 Glucagon Inj 1 Mg Vial IM Q15MIN PRN BG <70, and no IV access Heparin Sodium (Porcine) 5,000 unit 09/19/24 22:00 09/21/24 05:31 Heparin Sod Inj 5000 Unit/Ml Vial SC 10/03/24 21:59 5,000 unit Q8HR SHANNAN Administration Piperacillin/Tazobactam/Dextrose 3.375 gm in 50 mls @ 12.5 mls/hr 09/19/24 20:58 09/21/24 05:30 Zosyn IV 09/26/24 20:57 12.5 mls/hr Q8HR SHANNAN Administration Vancomycin/Sodium Chloride 200 mls @ 120 mls/hr 09/20/24 22:00 09/21/24 10:30 Vancomycin/Ns 1 Gm Ivpb IV 09/27/24 21:59 120 mls/hr Q12H SHANNAN Administration Protocol Insulin Human Lispro 0 unit 09/20/24 07:30 09/21/24 12:14 Insulin Lispro (Admelog) 1 Unit/0.01 Ml Unit SC 10/20/24 07:29 1 unit AC SHANNAN Administration Protocol Lidocaine 1 patch 09/20/24 18:56 09/21/24 13:38 Lidocaine 5% 1 Patch TOP 10/20/24 18:55 1 patch UD PRN Administration PAIN Protocol Lorazepam 0.5 mg 09/19/24 21:08 Lorazepam 2 Mg/Ml Vial IV 09/24/24 21:07 Q2HR PRN CIWA SCORE 7-13 Lorazepam 1 mg 09/19/24 21:08 Lorazepam 2 Mg/Ml Vial IV 09/24/24 21:07 Q2HR PRN CIWA SCORE 14-19 Lorazepam 2 mg 09/19/24 21:08 Lorazepam 2 Mg/Ml Vial IV 09/24/24 21:07 Q2HR PRN CIWA SCORE 20-25 Lorazepam 0.5 mg 09/19/24 21:08 Lorazepam 0.5 Mg Tablet PO 09/24/24 21:07 Q4HR PRN CIWA Score 2-6 Ondansetron HCl 4 mg 09/19/24 20:45 Ondansetron Inj 2 Mg/Ml Inj 2 Ml IVP 10/19/24 20:44 Q6H PRN NAUSEA OR VOMITING Protocol Pantoprazole Sodium 40 mg 09/20/24 09:00 09/21/24 08:14 Pantoprazole 40 Mg Tablet PO 10/20/24 08:59 40 mg QDAY SHANNAN Administration Pharmacy Consult 1 each 09/20/24 11:10 Vancomycin Pharmacy To Dose 1 Each Each IV 10/20/24 11:09 QDAY PRN PROTOCOL Potassium Phos/Sodium Phos 1 packet 09/21/24 09:15 09/21/24 09:24 [place] 1 Packet (1.5 Gm) PO 10/21/24 09:14 1 packet BID SHANNAN Administration Thiamine HCl 100 mg 09/19/24 21:15 09/21/24 08:14 Thiamine 100 Mg Tablet PO 09/24/24 21:14 100 mg BID SHANNAN Administration Plan 79-year-old male with past medical history of diabetes, sciatica, remote history of [place] fever who 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 #GPC bacteremia 2/ #Diabetic foot infection Foot x-ray showed soft tissue infection of fifth metatarsal. He is s/p I&D day 1 (done on 09/20/24). Repeat cultures growing GPC -gen surgery Dr. Garrison consulted, appreciate recommendations -continue IV vancomycin (09/19- -continue IV Zosyn 3.375g BID (09/19- ? repeat blood cultures #Elevated troponins-resolved Patient denies any chest pain or shortness of breath. Has no previous cardiac history. Does not follow with cardiology. Likely due to demand ischemia vs plaque rupture/thrombosis. EKG on admission negative for any ischemic changes. Rate 83. Echo 09/20/24: EF 65%, Normal LV Troponins peaked at 0.691 now downtrending. -cardioloy Dr. Stafford consulted, appreciate recs -concern for heart disease due to underlying comorbidities. Patient is scheduled to undergo cardiac cath this Monday. -continue to monitor #Transaminitis-improving #Hyperbiliruninemia Likely in the setting of alcohol use or dehydration. Br has been stable at 1.6. AST 69, ALT 57 on admission. No abdominal pain. Ultrasound gallbladder negative for cholelithiasis, normal CBD, moderate hepatomegaly -daily [facility] -standing rock alcohol cessation #Non insulin dependent diabetes mellitus type 2, well controlled A1c 5.6 on this admission. patient takes metformin 500 mg BID. -ACHS glucose checks -SSI ? Hypoglycemia protocol in place #Alcohol use disorder ? Thiamine ? Folic acid ? CIWA protocol: no symptoms to suggest withdrawal. Plan to dc CIWA tomorrow. #Early left base pneumonia only seen on Xray. CURB-65 only 1 point. Afebrile, does not complain of any shortness of breath, cough resolving air saturating well -Antibiotics used for bacteremia also covering pneumonia Health Maintenance: Disposition: Med telemetry, GPC bacteremia, cardiac cath monday Feeding: Carb consistent low Thrombo prophylaxis: Heparin Gastric Ulcer prophylaxis: Pantoprazole CODE STATUS: DNR The patient's management plan was discussed with my attending physician Dr. Rashid. Ivet Colmenares, PGY-1 Attending Provider Attestation/Addendum I have examined the patient, reviewed labs and imaging findings, discussed the case with the resident(s), and reviewed entered orders. I agree with the plan of care as outlined in this note, with these additional summaries/recommendations: Patient & nephew seen at bedside. No acute overnight events. Patient reports improvement in left lower extremity discomfort/pain. Patient admitted for left lower extremity cellulitis and abscess. Patient was started on IV antibiotics and blood culture currently showing GPC. General surgery was consulted and patient underwent incision and drainage of abscess. He tolerated procedure well. Continue pain management. Wound care as needed. Patient was also noted to have elevated troponins which peaked at 0.772. Cardiology consulted with plans for cardiac catheterization on 09/23/2024. Blood cultures now showing GPC and vancomycin added to regimen. Continue insulin sliding scale for diabetes mellitus type 2 and target blood sugar of 140-180 while hospitalized. Patient does have a history of alcohol use although has not required CIWA. If no withdrawal symptoms by tomorrow then can likely discontinue CIWA. Will monitor to see if withdrawal symptoms develop. Minimal hyperbilirubinemia present and likely secondary to dehydration. Repeat chemistry panel in AM. Patient updated on the plan and in agreement. All questions answered to satisfaction. Please see residents note for additional details and management. Dr. Gay MD
--- NOTE | 2024-09-21 16:05 | PC.SS ---
Per rounding note, pt will IV vancomycin and Zosyn for treatment of GPC bacteremia. No d/c date at this time.
[2024-09-21] MEDS: KETOROLAC INJ 30 MG/ML VIAL IVP (16:28)
[2024-09-21] MEDS: ATORVASTATIN CALCIUM 20 MG TABLET PO (20:38)
[2024-09-21 22:50] LABS: Vancomycin,Trough 11.9 mcg/mL (5.0-10.0)
[2024-09-22] VITALS (8 sets, daily range): BP systolic 110–128; BP diastolic 60–73; PULSE 68–79; RESP 12–99; TEMP 36.1–37.7; O2SAT 96–99; BMI 22.0
[2024-09-22] MEDS: PIPER/TAZO 3.375 GM PREMIX 3.375 GM/50 ML BAG IV ×3 (05:19→21:39)
[2024-09-22] MEDS: HEPARIN SOD INJ 5000 UNIT/ML VIAL SC ×2 (05:19→13:49)
[2024-09-22 05:51] LABS: Basophils # (Auto) 0.1 Thou/mm3 (0.0-0.2); Basophils % (Auto) 1 % (0-2.5); Eosinophils # (Auto) 0.2 Thou/mm3 (0.0-0.5); Eosinophils % (Auto) 2 % (0-10); Hematocrit 35.0 % (41.0-53.0); Hemoglobin 12.5 g/dL (13.5-16.0); Immature Granulocytes Auto 0.09 Thou/mm3 (0.00-0.00); Lymphocytes # (Auto) 1.4 Thou/mm3 (1.0-4.8); Lymphocytes % (Auto) 12 % (10-50); Mean Corpuscular HGB Conc 35.7 g/dl (31.0-37.0); Mean Corpuscular Hemoglobin 34.0 pg (25.0-35.0); Mean Corpuscular Volume 95 fL (80-100); Monocytes # (Auto) 1.2 Thou/mm3 (0.0-0.8); Monocytes % (Auto) 10 % (0-12); Neutrophils # (Auto) 8.8 Thou/mm3 (1.8-7.7); Neutrophils % (Auto) 74 % (37-80); Nucleated Red Blood Cell # 0.00 Thou/mm3 (0.00-0.00); Nucleated Red Blood Cell % 0 /100 WBC (0); Platelet Count 210 Thou/mm3 (140-440); RDW Standard Deviation 41.5 fL (35.1-43.9); Red Blood Count 3.68 Miln/mm3 (4.50-5.90); White Blood Count 11.8 Thou/mm3 (3.8-10.6)
[2024-09-22 06:54] LABS: Alanine Aminotransferase 55 U/L (10-49); Albumin, Serum 3.6 gm/dL (3.4-4.8); Albumin/Globulin Ratio 1.6 (1.2-2.2); Alkaline Phosphatase 130 U/L (46-116); Anion Gap 9 (7-16); Aspartate Amino Transferase 42 U/L (0-34); BUN/Creatinine Ratio 10 Ratio (12-20); Bilirubin,Total 1.6 mg/dL (0.3-1.2); Blood Urea Nitrogen 10 mg/dL (9-23); Calcium 8.2 mg/dL (8.3-10.6); Calcium (Corrected) 8.5 mg/dL (8.5-10.1); Carbon Dioxide 24.3 mMol/L (20.0-31.0); Chloride 103 mMol/L (98-107); Creatinine (Component) 1.0 mg/dL (0.6-1.3); Estimated Creatinine Clearance 65.2 mL/min (>60); Globulin 2.2 gm/dL (2.3-3.5); Glucose 126 mg/dL (74-106); Magnesium 2.0 mg/dL (1.6-2.6); Osmolality,Calculated 272 (275-295); Phosphorous 2.0 mg/dL (2.4-5.1); Potassium 3.5 mMol/L (3.4-5.1); Sodium 136 mMol/L (136-145); Total Protein 5.8 gm/dL (5.7-8.2); eGFR > 60 See Note
[2024-09-22] MEDS: GABAPENTIN 300 MG CAPSULE PO ×2 (07:32→15:59)
[2024-09-22] MEDS: DOCUSATE SOD 100 MG CAPSULE PO (09:21)
[2024-09-22] MEDS: THIAMINE 100 MG TABLET PO ×2 (09:21→21:39)
[2024-09-22] MEDS: PANTOPRAZOLE 40 MG TABLET PO (09:21)
[2024-09-22] MEDS: FOLIC ACID 1 MG TABLET PO ×2 (09:21→21:39)
[2024-09-22] MEDS: NAPH,KPH MBDB 1 PACKET (1.5 GM) PO ×2 (09:22→21:38)
[2024-09-22] MEDS: ASPIRIN EC 81 MG TABEC PO (09:22)
--- NOTE | 2024-09-22 10:22 | PC.SS ---
Addendum entered by Joi White 09/22/24 10:29: ASW contacted pt and pts brother Eugenio Barrett [phone] who reported that pt was never on hospice care prior to entering the hospital. Per Eugenio, he reports pt is looking better and upon d/c, pt will return home. Eugenio reported that he and his will care for pt at home. No needs identified at this time. Original Note: Per rounding meeting, pt is scheduled to undergo cardiac cath this Monday. Pt has a foot infection and cardio concerns. Pt is on IV antibiotics, pending culture. Attending would like SS to talk to pt about h/o hospice care, as it was reported from the son that pt was on hospice care prior to entering the hospital. SS to f/u with family regarding h/o hospice care and provide update to the attending.
[2024-09-22] MEDS: VANCOMYCIN/NS 1 GM IVPB 200 ML IV ×2 (11:38→22:51)
[2024-09-22] MEDS: LIDOCAINE 5% 1 PATCH TOP (11:42)
--- NOTE | 2024-09-22 13:20 | PD.IMPROG ---
Documentation for date of: 09/22/24 Subjective Subjective Interval history: elevated troponin heart cath tomorrwo Exam Vital Signs Temp Pulse Resp BP Pulse Ox O2 Del Method O2 Flow Rate 99.3 F 71 20 128/64 97 Room Air 6 09/22/24 12:00 09/22/24 12:00 09/22/24 12:00 09/22/24 12:00 09/22/24 12:00 09/22/24 12:00 09/20/24 15:54 Routine HEENT Exam Head: Present normocephalic and atraumatic Eye: Present EOMI and PERRL ENT: Present mucous membranes moist Routine Neck Exam Neck: Present supple and trachea midline Routine Respiratory Exam Respiratory: Present chest non-tender, lungs clear, normal breath sounds and no resp distress Routine Cardiovascular Exam Cardiovascular: Present RRR Routine Abdominal Exam Abdominal: Present soft and normoactive bowel sounds Routine Extremities Exam Extremities: Present full ROM Routine Skin Exam Skin: Present intact, dry and warm Routine Neurological Exam Neurological: Present alert, oriented X3 and CN II-XII intact Routine Psychiatric Exam Psychiatric: Present normal affect and normal thought process Objective Labs 09/22/24 05:10 09/22/24 05:10 Labs: Laboratory Results - last 24 hr 09/21/24 09/22/24 21:18 05:10 WBC 11.8 H RBC 3.68 L Hgb 12.5 L Hct 35.0 L MCV 95 MCH 34.0 MCHC 35.7 RDW Std Deviation 41.5 Plt Count 210 Neut % (Auto) 74 Lymph % (Auto) 12 [place] % (Auto) 10 Eos % (Auto) 2 Baso % (Auto) 1 Neut # (Auto) 8.8 H Lymph # (Auto) 1.4 [place] # (Auto) 1.2 H Eos # (Auto) 0.2 Baso # (Auto) 0.1 Immature Gran # (Auto) 0.09 H Absolute Nucleated RBC 0.00 Immature Gran % 1 H Nucleated RBC % 0 Sodium 136 Potassium 3.5 Chloride 103 Carbon Dioxide 24.3 Anion Gap 9 BUN 10 Creatinine 1.0 Estim Creat Clear Calc 65.2 eGFR > 60 BUN/Creatinine Ratio 10 L Glucose 126 H Calculated Osmolality 272 L Calcium 8.2 L Corrected Calcium 8.5 Phosphorus 2.0 L Magnesium 2.0 Total Bilirubin 1.6 H AST 42 H ALT 55 H Alkaline Phosphatase 130 H D Total Protein 5.8 Albumin 3.6 Globulin 2.2 L Albumin/Globulin Ratio 1.6 Vancomycin Trough 11.9 H Assessment & Plan A&P Narrative Heart cath will be scheduled for Monday Time Spent With Patient Time: Total time spent is greater than 50% in coordination of care (as documented) at patient's floor/unit and/or counseling patient:
--- NOTE | 2024-09-22 15:52 | PD.RESPRO ---
Documentation for date of: 09/22/24 Subjective Subjective Interval history: Patient examined at bedside, no events overnight. Status post I&D of left foot day 2. Denies any chest pain or shortness of breath. Vitals are stable, blood sugars controlled. Electrolyte abnormalities repleted as needed. Continuing IV antibiotics in the setting of MRSA bacteremia. Cultures from yesterday are pending. Consulted infectious disease team Dr Youssef for additional recommendations. Patient will be n.p.o. at midnight for planned cardiac cath tomorrow by Dr. Stafford. Denies any alcohol withdrawal symptoms, discontinue CIWA protocol. Exam Vital Signs Temp Pulse Resp BP Pulse Ox O2 Del Method O2 Flow Rate 99.3 F 71 16 128/64 97 Room Air 6 09/22/24 12:00 09/22/24 13:30 09/22/24 13:30 09/22/24 12:00 09/22/24 12:00 09/22/24 12:00 09/20/24 15:54 Narrative Exam General: Elderly male, No acute distress, cooperative HEENT: NCAT, No JVD noted. Mucosa moist. Pupils are equal and reactive to light bilaterally Cardiovascular: Normal S1 and S2. Regular rate and rhythm. Respiratory: Lungs are clear to auscultation bilaterally. No wheezing or crackles heard. Abdomen: Soft, nontender, not distended, normal bowel sounds. Skin: Warm to touch, dry, no rashes noted, left foot in kerlix rolls, no bleeding Musculoskeletal: No gross injuries. Able to move all 4 extremities. No pitting edema Neuro: Alert and oriented x3. No focal neuro deficits. Psych: Normal affect and mood Objective Labs 09/23/24 06:18 09/23/24 05:50 Labs: Laboratory Results - last 24 hr 09/21/24 09/22/24 21:18 05:10 WBC 11.8 H RBC 3.68 L Hgb 12.5 L Hct 35.0 L MCV 95 MCH 34.0 MCHC 35.7 RDW Std Deviation 41.5 Plt Count 210 Neut % (Auto) 74 Lymph % (Auto) 12 [place] % (Auto) 10 Eos % (Auto) 2 Baso % (Auto) 1 Neut # (Auto) 8.8 H Lymph # (Auto) 1.4 [place] # (Auto) 1.2 H Eos # (Auto) 0.2 Baso # (Auto) 0.1 Immature Gran # (Auto) 0.09 H Absolute Nucleated RBC 0.00 Immature Gran % 1 H Nucleated RBC % 0 Sodium 136 Potassium 3.5 Chloride 103 Carbon Dioxide 24.3 Anion Gap 9 BUN 10 Creatinine 1.0 Estim Creat Clear Calc 65.2 eGFR > 60 BUN/Creatinine Ratio 10 L Glucose 126 H Calculated Osmolality 272 L Calcium 8.2 L Corrected Calcium 8.5 Phosphorus 2.0 L Magnesium 2.0 Total Bilirubin 1.6 H AST 42 H ALT 55 H Alkaline Phosphatase 130 H D Total Protein 5.8 Albumin 3.6 Globulin 2.2 L Albumin/Globulin Ratio 1.6 Vancomycin Trough 11.9 H Quality Measures Quality Measures none Advance care planning discussed with:: patient Assessment & Plan Assessment Current Active Medications: Generic Name Dose Route Start Last Admin Trade Name Freq PRN Reason Stop Dose Admin Acetaminophen 1,000 mg 09/19/24 20:45 Acetaminophen 325 Mg Tablet PO 10/19/24 20:44 Q6H PRN PAIN SCALE 1-3 (mild Acetaminophen 650 mg 09/20/24 18:56 Acetaminophen 325 Mg Tablet PO 10/19/24 20:44 Q6H PRN FEVER > 100.4 Aspirin 81 mg 09/20/24 09:00 09/22/24 09:22 Aspirin Ec 81 Mg Tabec PO 10/20/24 08:59 81 mg QDAY SHANNAN Administration Atorvastatin Calcium 20 mg 09/19/24 21:00 09/21/24 20:38 Atorvastatin Calcium 20 Mg Tablet PO 10/19/24 20:59 20 mg HS SHANNAN Administration Dextrose 25 ml 09/19/24 21:03 Dextrose 50%-Water Inj 50 Ml Syringe IV 10/19/24 21:02 Q15MIN PRN BG 50-70 responsive npo pt Dextrose 50 ml 09/19/24 21:03 Dextrose 50%-Water Inj 50 Ml Syringe IV 10/19/24 21:02 Q15MIN PRN BG <50 OR BG <70 & pt unresponsive Docusate Sodium 100 mg 09/20/24 09:00 09/22/24 09:21 Docusate Sod 100 Mg Capsule PO 10/20/24 08:59 100 mg QDAY SHANNAN Administration Protocol Folic Acid 1 mg 09/19/24 21:15 09/22/24 09:21 Folic Acid 1 Mg Tablet PO 09/24/24 21:14 1 mg BID SHANNAN Administration Gabapentin 300 mg 09/21/24 13:46 09/22/24 07:32 Gabapentin 300 Mg Capsule PO 10/21/24 13:45 300 mg Q8H PRN Administration back pain Glucagon 1 mg 09/19/24 21:03 Glucagon Inj 1 Mg Vial IM Q15MIN PRN BG <70, and no IV access Heparin Sodium (Porcine) 5,000 unit 09/19/24 22:00 09/22/24 13:49 Heparin Sod Inj 5000 Unit/Ml Vial SC 10/03/24 21:59 5,000 unit Q8HR SHANNAN Administration Piperacillin/Tazobactam/Dextrose 3.375 gm in 50 mls @ 12.5 mls/hr 09/19/24 20:58 09/22/24 13:49 Zosyn IV 09/26/24 20:57 12.5 mls/hr Q8HR SHANNAN Administration Vancomycin/Sodium Chloride 200 mls @ 120 mls/hr 09/20/24 22:00 09/22/24 11:38 Vancomycin/Ns 1 Gm Ivpb IV 09/27/24 21:59 120 mls/hr Q12H SHANNAN Administration Protocol Insulin Human Lispro 0 unit 09/20/24 07:30 09/22/24 11:54 Insulin Lispro (Admelog) 1 Unit/0.01 Ml Unit SC 10/20/24 07:29 Not Given AC [facility] Protocol Lidocaine 1 patch 09/20/24 18:56 09/22/24 11:42 Lidocaine 5% 1 Patch TOP 10/20/24 18:55 1 patch UD PRN Administration PAIN Protocol Ondansetron HCl 4 mg 09/19/24 20:45 Ondansetron Inj 2 Mg/Ml Inj 2 Ml IVP 10/19/24 20:44 Q6H PRN NAUSEA OR VOMITING Protocol Pantoprazole Sodium 40 mg 09/20/24 09:00 09/22/24 09:21 Pantoprazole 40 Mg Tablet PO 10/20/24 08:59 40 mg QDAY [facility] Administration Pharmacy Consult 1 each 09/20/24 11:10 Vancomycin Pharmacy To Dose 1 Each Each IV 10/20/24 11:09 QDAY PRN PROTOCOL Potassium Phos/Sodium Phos 1 packet 09/21/24 09:15 09/22/24 09:22 [facility] 1 Packet (1.5 Gm) PO 10/21/24 09:14 1 packet BID SHANNAN Administration Thiamine HCl 100 mg 09/19/24 21:15 09/22/24 09:21 Thiamine 100 Mg Tablet PO 09/24/24 21:14 100 mg BID SHANNAN Administration Plan 79-year-old male with past medical history of diabetes, sciatica, remote history of [place] who 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 #Bacteremia likely 2/2 MRSA from #Diabetic foot infection Foot x-ray showed soft tissue infection of fifth metatarsal. He is s/p I&D day 2 (done on 09/20/24). Repeat cultures growing GPC -gen surgery Dr. Garrison consulted, appreciate recommendations -consulted ID Dr. Youssef -continue IV vancomycin (09/19- -continue IV Zosyn 3.375g BID (09/19- ? repeat blood cultures pending -wound care on board #Elevated troponins-resolved Patient denies any chest pain or shortness of breath. Has no previous cardiac history. Does not follow with cardiology. Likely due to demand ischemia vs plaque rupture/thrombosis. EKG on admission negative for any ischemic changes. Rate 83. Echo 09/20/24: EF 65%, Normal LV Troponins peaked at 0.691 now downtrending. -cardioloy Dr. Stafford consulted, appreciate recs -concern for heart disease due to underlying comorbidities. Patient is scheduled to undergo cardiac cath this Monday. -continue to monitor #Transaminitis-improving #Hyperbiliruninemia Likely in the setting of alcohol use or dehydration. Br has been stable at 1.6. AST 69, ALT 57 on admission. No abdominal pain. Ultrasound gallbladder negative for cholelithiasis, normal CBD, moderate hepatomegaly -daily CMP -[place] alcohol cessation #Non insulin dependent diabetes mellitus type 2, well controlled A1c 5.6 on this admission. patient takes metformin 500 mg BID. -ACHS glucose checks -SSI ? Hypoglycemia protocol in place #Alcohol use disorder ? Thiamine ? Folic acid ? dc CIWA protocol: no symptoms to suggest withdrawal. #Early left base pneumonia only seen on Xray. CURB-65 only 1 point. Afebrile, does not complain of any shortness of breath, cough resolving air saturating well -Antibiotics used for bacteremia also covering pneumonia Health Maintenance: Disposition: Med telemetry, MRSA bacteremia, cardiac cath tomorrow Feeding: Carb consistent low, NPO midnight Thrombo prophylaxis: Heparin Gastric Ulcer prophylaxis: Pantoprazole CODE STATUS: DNR The patient's management plan was discussed with my attending physician Dr. Rashid. Ivet Colmenares, PGY-1 Attending Provider Attestation/Addendum I have examined the patient, reviewed labs and imaging findings, discussed the case with the resident(s), and reviewed entered orders. I agree with the plan of care as outlined in this note, with these additional summaries/recommendations: Patient seen at bedside. No acute overnight events. He reports his pain is controlled and has no symptoms to report today. Patient admitted for left lower extremity cellulitis and abscess. Patient was started on IV antibiotics and blood culture currently showing GPC. General surgery was consulted and patient underwent incision and drainage of abscess. Culture was taken during incision and drainage which revealed Staphylococcus aureus. Blood cultures were taken on 09/19/2024 and 1 bottle currently growing methicillin resistant Staph aureus. Repeat blood cultures on 09/20/2024 showing GPC. Repeat blood cultures on 09/21/2024 pending. Continue IV vancomycin. Consult in-house infectious disease. Wound care as needed. Patient was also noted to have elevated troponins which peaked at 0.772. Cardiology consulted with plans for possible cardiac catheterization although we will update cardiology about bacteremia. Continue insulin sliding scale for diabetes mellitus type 2 and target blood sugar of 140-180 while hospitalized. Discontinue CIWA as no evidence of alcohol withdrawal. Repeat chemistry panel in AM. Patient updated on the plan and in agreement. All questions answered to satisfaction. Please see residents note for additional details and management. Dr. Gay MD
[2024-09-22] MEDS: ACETAMINOPHEN 500 MG TABLET 1000 MG PO (16:43)
--- NOTE | 2024-09-22 16:48 | PC.NURSE ---
Patient complaining of uncontrolled pain in back. Contacted Dr. Colmenares. Awaiting new orders.
[2024-09-22] MEDS: INSULIN LISPRO (AdmeLOG) 1 UNIT/0.01 ML UNIT SC (16:55)
[2024-09-22] MEDS: KETOROLAC INJ 30 MG/ML VIAL IVP (17:05)
--- NOTE | 2024-09-22 18:10 | PC.NURSE ---
Pt still complaining of uncontrolled back pain. Called Dr. Willis. Awaiting new orders
[2024-09-22] MEDS: oxyCODONE HCL 5 MG IR TAB PO (18:31)
--- NOTE | 2024-09-22 21:29 | PC.NURSE ---
Spoke to pharmacist over the phone and pharmacist orders to give vanco around [phone] since last dose administered late.
[2024-09-22] MEDS: ATORVASTATIN CALCIUM 20 MG TABLET PO (21:39)
[2024-09-23] VITALS (15 sets, daily range): BP systolic 91–152; BP diastolic 54–91; PULSE 60–83; RESP 12–97; TEMP 36.4–37.6; O2SAT 93–99; BMI 22.7; BMI 22.8
[2024-09-23] MEDS: oxyCODONE HCL 5 MG IR TAB PO ×2 (00:14→12:39)
[2024-09-23] MEDS: LIDOCAINE 5% 1 PATCH TOP (04:35)
[2024-09-23] MEDS: PIPER/TAZO 3.375 GM PREMIX 3.375 GM/50 ML BAG IV (05:10)
[2024-09-23 06:26] LABS: Basophils # (Auto) 0.1 Thou/mm3 (0.0-0.2); Basophils % (Auto) 1 % (0-2.5); Eosinophils # (Auto) 0.3 Thou/mm3 (0.0-0.5); Eosinophils % (Auto) 2 % (0-10); Hematocrit 34.3 % (41.0-53.0); Hemoglobin 12.5 g/dL (13.5-16.0); Immature Granulocytes Auto 0.12 Thou/mm3 (0.00-0.00); Lymphocytes # (Auto) 1.3 Thou/mm3 (1.0-4.8); Lymphocytes % (Auto) 11 % (10-50); Mean Corpuscular HGB Conc 36.4 g/dl (31.0-37.0); Mean Corpuscular Hemoglobin 33.7 pg (25.0-35.0); Mean Corpuscular Volume 93 fL (80-100); Monocytes # (Auto) 1.1 Thou/mm3 (0.0-0.8); Monocytes % (Auto) 9 % (0-12); Neutrophils # (Auto) 8.8 Thou/mm3 (1.8-7.7); Neutrophils % (Auto) 76 % (37-80); Nucleated Red Blood Cell # 0.00 Thou/mm3 (0.00-0.00); Nucleated Red Blood Cell % 0 /100 WBC (0); Platelet Count 263 Thou/mm3 (140-440); RDW Standard Deviation 40.3 fL (35.1-43.9); Red Blood Count 3.71 Miln/mm3 (4.50-5.90); White Blood Count 11.6 Thou/mm3 (3.8-10.6)
[2024-09-23 06:54] LABS: Alanine Aminotransferase 57 U/L (10-49); Albumin, Serum 3.4 gm/dL (3.4-4.8); Albumin/Globulin Ratio 1.5 (1.2-2.2); Alkaline Phosphatase 163 U/L (46-116); Anion Gap 5 (7-16); Aspartate Amino Transferase 42 U/L (0-34); BUN/Creatinine Ratio 10 Ratio (12-20); Bilirubin,Total 1.5 mg/dL (0.3-1.2); Blood Urea Nitrogen 10 mg/dL (9-23); Calcium 7.9 mg/dL (8.3-10.6); Calcium (Corrected) 8.4 mg/dL (8.5-10.1); Carbon Dioxide 25.0 mMol/L (20.0-31.0); Chloride 105 mMol/L (98-107); Creatinine (Component) 1.0 mg/dL (0.6-1.3); Estimated Creatinine Clearance 67.4 mL/min (>60); Globulin 2.3 gm/dL (2.3-3.5); Glucose 132 mg/dL (74-106); Osmolality,Calculated 271 (275-295); Potassium 3.4 mMol/L (3.4-5.1); Sodium 135 mMol/L (136-145); Total Protein 5.7 gm/dL (5.7-8.2); eGFR > 60 See Note
--- NOTE | 2024-09-23 08:20 | PD.CARDCATH ---
Cardiac Cath Procedure Procedure Narrative Procedure date 09/23/2024 Title of the procedure 1.left heart catheterization 2.left coronary angiogram 3.right coronary angiogram 4.left ventriculogram 5.conscious sedation 6.radiographic interpretation supervision 7.ultrasound guidance for right radial access Indication for the procedure This is a 79-year-old gentleman with past medical history of hypertension diabetes hyperlipidemia Peripheral vascular disease He was admitted with foot infection from the [employer] head office Subsequently he was noted to have positive troponins in view of patient's extensive risk factors with diabetes we decided to proceed with cardiac catheter and coronary angiogram for non-ST elevation NM Procedure Under intermittent blood pressure monitoring and continuous electrocardiographic monitoring Right radial access was obtained using modified Seldinger technique and 6 Indian sheath was placed TIG 4 catheter was initially attempted to obtain left coronary angiogram this was found to be difficult Subsequently JL 5 catheter used for selective injection left coronary artery TIG 4 catheter used for selective injection of the right coronary artery TIG 4 catheter was also used for left ventriculogram Findings Hemodynamics Overall left ventricular systolic function appears normal Approximate ejection fraction 50% End-diastolic pressure was 16 mmHg There is no gradient across the aortic valve Coronary anatomy 1.left main coronary artery appears normal 2.left anterior descending artery has a 90% lesion in the proximal region 4.circumflex gives off a large obtuse marginal which has a 99% lesion in the midsegment 5.right coronary artery is occluded 100% in the mid to distal region 5.PDA fills from the left system with collaterals Conclusion Severe triple-vessel disease Recommend coronary artery bypass surgery
--- NOTE | 2024-09-23 08:24 | ESPR_ITS ---
Documentation for date of: 09/23/24 Subjective Subjective Interval history: Patient had a coronary angiogram done today which shows severe triple-vessel disease Patient will require bypass surgery This could be done as inpatient or outpatient Exam Vital Signs Temp Pulse Resp BP Pulse Ox O2 Del Method O2 Flow Rate 99.7 F 69 18 141/69 H 97 Room Air 6 09/23/24 06:58 09/23/24 06:58 09/23/24 06:58 09/23/24 06:58 09/23/24 06:58 09/23/24 06:58 09/23/24 04:00 Routine HEENT Exam Head: Present normocephalic and atraumatic Eye: Present EOMI and PERRL ENT: Present mucous membranes moist Routine Neck Exam Neck: Present supple and trachea midline Routine Respiratory Exam Respiratory: Present chest non-tender, lungs clear, normal breath sounds and no resp distress Routine Cardiovascular Exam Cardiovascular: Present RRR Routine Abdominal Exam Abdominal: Present soft and normoactive bowel sounds Routine Extremities Exam Extremities: Present full ROM Routine Skin Exam Skin: Present intact, dry and warm Routine Neurological Exam Neurological: Present alert, oriented X3 and CN II-XII intact Routine Psychiatric Exam Psychiatric: Present normal affect and normal thought process Objective Labs 09/23/24 06:18 09/23/24 05:50 Labs: Laboratory Results - last 24 hr 09/23/24 09/23/24 09/23/24 05:50 06:18 09:00 WBC 11.6 H RBC 3.71 L Hgb 12.5 L Hct 34.3 L MCV 93 MCH 33.7 MCHC 36.4 RDW Std Deviation 40.3 Plt Count 263 D Neut % (Auto) 76 Lymph % (Auto) 11 [place] % (Auto) 9 Eos % (Auto) 2 Baso % (Auto) 1 Neut # (Auto) 8.8 H Lymph # (Auto) 1.3 [place] # (Auto) 1.1 H Eos # (Auto) 0.3 Baso # (Auto) 0.1 Immature Gran # (Auto) 0.12 H Absolute Nucleated RBC 0.00 Immature Gran % 1 H Nucleated RBC % 0 Sodium 135 L Potassium 3.4 Chloride 105 Carbon Dioxide 25.0 Anion Gap 5 L BUN 10 Creatinine 1.0 Estim Creat Clear Calc 67.4 eGFR > 60 BUN/Creatinine Ratio 10 L Glucose 132 H Calculated Osmolality 271 L Calcium 7.9 L Corrected Calcium 8.4 L Total Bilirubin 1.5 H AST 42 H ALT 57 H Alkaline Phosphatase 163 H D Total Protein 5.7 Albumin 3.4 Globulin 2.3 Albumin/Globulin Ratio 1.5 Vancomycin Trough Cancelled Assessment & Plan A&P Narrative Severe triple-vessel disease Patient will require bypass surgery Time Spent With Patient Time: Total time spent is greater than 50% in coordination of care (as documented) at patient's floor/unit and/or counseling patient:
[2024-09-23 09:56] LABS: Magnesium 2.0 mg/dL (1.6-2.6); Phosphorous 2.5 mg/dL (2.4-5.1)
--- NOTE | 2024-09-23 10:49 | PC.NURSE ---
Patient transferred to [facility] via [facility]. VSS. Dressing to right wrist clean, dry, and intact. No signs of bleeding or hematoma.
[2024-09-23] MEDS: ASPIRIN EC 81 MG TABEC PO (10:58)
[2024-09-23] MEDS: DOCUSATE SOD 100 MG CAPSULE PO (10:58)
[2024-09-23] MEDS: PANTOPRAZOLE 40 MG TABLET PO (10:58)
[2024-09-23] MEDS: FOLIC ACID 1 MG TABLET PO ×2 (10:58→21:19)
[2024-09-23] MEDS: CALCIUM CARBONATE 600 MG TABLET PO ×2 (10:58→21:19)
[2024-09-23] MEDS: GABAPENTIN 300 MG CAPSULE PO (10:58)
--- NOTE | 2024-09-23 11:02 | PD.RESPRO ---
Documentation for date of: 09/23/24 Subjective Subjective Interval history: Patient examined at bedside, no events overnight. He had cardiac cath done this morning by Dr. Stafford. Findings showed severe triple vessel disease. LAD showed 90% lesion in the proximal region, large obtuse marginal which has a 99% lesion in the midsegment, and RCA occluded 100% in the mid to distal region. EF was 50%. Electrolytes repleted as needed. Continue IV antibiotics for MRSA bacteremia. Blood cultures from 09/21 GPC positive. Repeat blood cultures pending. Dr. Youssef was consulted for additional recommendations. Patient will need to continue aspirin, Plavix, atorvastatin at time of discharge and follow-up closely with cardiology. Cannot undergo CABG procedure until he has completed full treatment of MRSA bacteremia and blood cultures are negative. Exam Vital Signs Temp Pulse Resp BP Pulse Ox O2 Del Method O2 Flow Rate 99.1 F 78 14 120/61 96 Room Air 6 09/23/24 08:09/23/24 10:09/23/24 10:09/23/24 10:09/23/24 10:09/23/24 10:09/23/24 04:00 Narrative Exam General: Elderly male, No acute distress, cooperative, delayed responses and mild confusion following sedation. HEENT: NCAT, No JVD noted. Mucosa moist. Pupils are equal and reactive to light bilaterally Cardiovascular: Normal S1 and S2. Regular rate and rhythm. Respiratory: Lungs are clear to auscultation bilaterally. No wheezing or crackles heard. Abdomen: Soft, nontender, not distended, normal bowel sounds. Skin: Warm to touch, dry, no rashes noted, left foot in kerlix rolls, no bleeding Musculoskeletal: No gross injuries. Able to move all 4 extremities. No pitting edema Neuro: Alert and oriented x3. No focal neuro deficits. delayed responses and mild confusion following sedation. Psych: normal affect and mood Objective Labs 09/23/24 06:18 09/23/24 05:50 Labs: Laboratory Results - last 24 hr 09/23/24 09/23/24 09/23/24 05:50 06:18 09:00 WBC 11.6 H RBC 3.71 L Hgb 12.5 L Hct 34.3 L MCV 93 MCH 33.7 MCHC 36.4 RDW Std Deviation 40.3 Plt Count 263 D Neut % (Auto) 76 Lymph % (Auto) 11 [place] % (Auto) 9 Eos % (Auto) 2 Baso % (Auto) 1 Neut # (Auto) 8.8 H Lymph # (Auto) 1.3 [place] # (Auto) 1.1 H Eos # (Auto) 0.3 Baso # (Auto) 0.1 Immature Gran # (Auto) 0.12 H Absolute Nucleated RBC 0.00 Immature Gran % 1 H Nucleated RBC % 0 Sodium 135 L Potassium 3.4 Chloride 105 Carbon Dioxide 25.0 Anion Gap 5 L BUN 10 Creatinine 1.0 Estim Creat Clear Calc 67.4 eGFR > 60 BUN/Creatinine Ratio 10 L Glucose 132 H Calculated Osmolality 271 L Calcium 7.9 L Corrected Calcium 8.4 L Phosphorus 2.5 Magnesium 2.0 Total Bilirubin 1.5 H AST 42 H ALT 57 H Alkaline Phosphatase 163 H D Total Protein 5.7 Albumin 3.4 Globulin 2.3 Albumin/Globulin Ratio 1.5 Vancomycin Trough Cancelled Quality Measures Quality Measures none Advance care planning discussed with:: patient Assessment & Plan Assessment Current Active Medications: Generic Name Dose Route Start Last Admin Trade Name Freq PRN Reason Stop Dose Admin Acetaminophen 650 mg 09/20/24 18:56 Acetaminophen 325 Mg Tablet PO 10/19/24 20:44 Q6H PRN FEVER > 100.4 Acetaminophen 1,000 mg 09/22/24 16:40 09/22/24 16:43 Acetaminophen 500 Mg Tablet PO 10/19/24 20:44 1,000 mg Q6H PRN Administration PAIN SCALE 1-3 (mild Aspirin 81 mg 09/20/24 09:00 09/23/24 10:58 Aspirin Ec 81 Mg Tabec PO 10/20/24 08:59 81 mg QDAY SHANNAN Administration Atorvastatin Calcium 20 mg 09/19/24 21:00 09/22/24 21:39 Atorvastatin Calcium 20 Mg Tablet PO 10/19/24 20:59 20 mg HS SHANNAN Administration Calcium Carbonate 600 mg 09/23/24 07:32 09/23/24 10:58 Calcium Carbonate 600 Mg Tablet PO 09/23/24 21:01 600 mg BID SHANNAN Administration Dextrose 25 ml 09/19/24 21:03 Dextrose 50%-Water Inj 50 Ml Syringe IV 10/19/24 21:02 Q15MIN PRN BG 50-70 responsive npo pt Dextrose 50 ml 09/19/24 21:03 Dextrose 50%-Water Inj 50 Ml Syringe IV 10/19/24 21:02 Q15MIN PRN BG <50 OR BG <70 & pt unresponsive Docusate Sodium 100 mg 09/20/24 09:00 09/23/24 10:58 Docusate Sod 100 Mg Capsule PO 10/20/24 08:59 100 mg QDAY SHANNAN Administration Protocol Folic Acid 1 mg 09/19/24 21:15 09/23/24 10:58 Folic Acid 1 Mg Tablet PO 09/24/24 21:14 1 mg BID SHANNAN Administration Gabapentin 300 mg 09/21/24 13:46 09/23/24 10:58 Gabapentin 300 Mg Capsule PO 10/21/24 13:45 300 mg Q8H PRN Administration back pain Glucagon 1 mg 09/19/24 21:03 Glucagon Inj 1 Mg Vial IM Q15MIN PRN BG <70, and no IV access Heparin Sodium (Porcine) 5,000 unit 09/19/24 22:00 09/22/24 13:49 Heparin Sod Inj 5000 Unit/Ml Vial SC 10/03/24 21:59 5,000 unit Q8HR SHANNAN Administration Piperacillin/Tazobactam/Dextrose 3.375 gm in 50 mls @ 12.5 mls/hr 09/19/24 20:58 09/23/24 05:10 Zosyn IV 09/26/24 20:57 12.5 mls/hr Q8HR SHANNAN Administration Vancomycin/Sodium Chloride 200 mls @ 120 mls/hr 09/20/24 22:00 09/22/24 22:51 Vancomycin/Ns 1 Gm Ivpb IV 09/27/24 21:59 120 mls/hr Q12H SHANNAN Administration Protocol Sodium Chloride 500 mls @ 100 mls/hr 09/23/24 08:20 Ns 0.45% IV 09/23/24 13:19 .Q5H ONE Insulin Human Lispro 0 unit 09/20/24 07:30 09/23/24 08:31 Insulin Lispro (Admelog) 1 Unit/0.01 Ml Unit SC 10/20/24 07:29 Not Given AC SHANNAN Protocol Lidocaine 1 patch 09/20/24 18:56 09/23/24 04:35 Lidocaine 5% 1 Patch TOP 10/20/24 18:55 1 patch UD PRN Administration PAIN Protocol Ondansetron HCl 4 mg 09/19/24 20:45 Ondansetron Inj 2 Mg/Ml Inj 2 Ml IVP 10/19/24 20:44 Q6H PRN NAUSEA OR VOMITING Protocol Oxycodone HCl 5 mg 09/22/24 18:40 09/23/24 00:14 Oxycodone Hcl 5 Mg Ir Tab PO 09/27/24 18:39 5 mg Q6HR PRN Administration PAIN SCALE 4-10(Mod-Sev Pantoprazole Sodium 40 mg 09/20/24 09:00 09/23/24 10:58 Pantoprazole 40 Mg Tablet PO 10/20/24 08:59 40 mg QDAY SHANNAN Administration Pharmacy Consult 1 each 09/20/24 11:10 Vancomycin Pharmacy To Dose 1 Each Each IV 10/20/24 11:09 QDAY PRN PROTOCOL Thiamine HCl 100 mg 09/19/24 21:15 09/22/24 21:39 Thiamine 100 Mg Tablet PO 09/24/24 21:14 100 mg BID SHANNAN Administration Plan 79-year-old male with past medical history of diabetes, sciatica, remote history of [place] fever who 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 #Severe triple vessel disease #Elevated troponins-resolved Patient denies any chest pain or shortness of breath. Has no previous cardiac history. Does not follow with cardiology. EKG on admission negative for any ischemic changes. Rate 83. Echo 09/20/24: EF 65%, Normal LV Troponins peaked at 0.691 now downtrending. s/p cardiac cath 09/23/24: LAD showed 90% lesion in the proximal region, large obtuse marginal which has a 99% lesion in the midsegment, and RCA occluded 100% in the mid to distal region. EF was 50%. -cardioloy Dr. Stafford consulted, appreciate recs--Patient will need to continue aspirin, Plavix, atorvastatin at time of discharge and follow-up closely with cardiology. Cannot undergo CABG procedure until he has completed full treatment of MRSA bacteremia and blood cultures are negative. -continue to monitor -per cardiology, CABG can be done outpatient -aspirin 81 mg daily -atorvastatin 80mg daily #Bacteremia likely 2/2 MRSA from #Diabetic foot infection Foot x-ray showed soft tissue infection of fifth metatarsal. He is s/p I&D day 2 (done on 09/20/24). Repeat cultures growing GPC -gen surgery Dr. Garrison consulted, appreciate recommendations -consulted ID Dr. Youssef -continue IV vancomycin (09/19- -continue IV Zosyn 3.375g BID (09/19- ? repeat blood cultures pending -wound care on board #Transaminitis-improving #Hyperbiliruninemia Likely in the setting of alcohol use or dehydration. Br has been stable at 1.6. AST 69, ALT 57 on admission. No abdominal pain. Ultrasound gallbladder negative for cholelithiasis, normal CBD, moderate hepatomegaly -daily CMP -[place] alcohol cessation #Non insulin dependent diabetes mellitus type 2, well controlled A1c 5.6 on this admission. patient takes metformin 500 mg BID. -ACHS glucose checks -SSI ? Hypoglycemia protocol in place #Alcohol use disorder ? Thiamine ? Folic acid ? dc CIWA protocol: no symptoms to suggest withdrawal. #Early left base pneumonia only seen on Xray. CURB-65 only 1 point. Afebrile, does not complain of any shortness of breath, cough resolving air saturating well -Antibiotics used for bacteremia also covering pneumonia Health Maintenance: Disposition: Med telemetry, MRSA bacteremia Feeding: Carb consistent low Thrombo prophylaxis: Heparin Gastric Ulcer prophylaxis: Pantoprazole CODE STATUS: DNR The patient's management plan was discussed with my attending physician Dr. Rashid. Ivet Colmenares, PGY-1 Attending Provider Attestation/Addendum I have examined the patient, reviewed labs and imaging findings, discussed the case with the resident(s), and reviewed entered orders. I agree with the plan of care as outlined in this note, with these additional summaries/recommendations: Patient seen at bedside. No acute overnight events. Patient went for cardiac catheterization today that revealed severe triple-vessel disease with 90% lesion in proximal left anterior descending, 99% lesion in mid segment of circumflex, and 100% occlusion in mid to distal region of right coronary artery. Continue aspirin and atorvastatin. Per cardiology patient will need bypass surgery although can possibly be completed outpatient as he is not a candidate at this time given his MRSA bacteremia per cardiology. Will follow-up for recommendations with cardio. Continue ASA, Plavix, and statin. Patient originally admitted for left lower extremity cellulitis and abscess. Patient was started on IV antibiotics and blood culture currently showing GPC. General surgery was consulted and patient underwent incision and drainage of abscess. Culture was taken during incision and drainage which revealed Staphylococcus aureus. Blood cultures were taken on 09/19/2024 and 1 bottle currently growing methicillin resistant Staph aureus. Repeat blood cultures on 09/20/2024 showing GPC. Repeat blood cultures on 09/21/2024 pending. Continue IV vancomycin. Consult in-house infectious disease. Wound care as needed. Continue insulin sliding scale for diabetes mellitus type 2 and target blood sugar of 140-180 while hospitalized. Repeat chemistry panel in AM. Patient updated on the plan and in agreement. All questions answered to satisfaction. Please see residents note for additional details and management. Dr. Gay MD
--- NOTE | 2024-09-23 11:24 | ESPR_ITS ---
Subjective Subjective Interval history: mrsa bacteremia noted. bc done today pending. echo neg. Exam Vital Signs Temp Pulse Resp BP Pulse Ox O2 Del Method O2 Flow Rate 99.1 F 78 14 120/61 96 Room Air 6 09/23/24 08:25 09/23/24 10:00 09/23/24 10:00 09/23/24 10:00 09/23/24 10:00 09/23/24 10:00 09/23/24 04:00 Narrative Exam see dictation. exam non focal .pt sl confused though Objective - Internal Medicine Labs 09/23/24 06:18 09/24/24 05:34 Labs: Laboratory Results - last 24 hr 09/23/24 09/23/24 09/23/24 05:50 06:18 09:00 WBC 11.6 H RBC 3.71 L Hgb 12.5 L Hct 34.3 L MCV 93 MCH 33.7 MCHC 36.4 RDW Std Deviation 40.3 Plt Count 263 D Neut % (Auto) 76 Lymph % (Auto) 11 [place] % (Auto) 9 Eos % (Auto) 2 Baso % (Auto) 1 Neut # (Auto) 8.8 H Lymph # (Auto) 1.3 [place] # (Auto) 1.1 H Eos # (Auto) 0.3 Baso # (Auto) 0.1 Immature Gran # (Auto) 0.12 H Absolute Nucleated RBC 0.00 Immature Gran % 1 H Nucleated RBC % 0 Sodium 135 L Potassium 3.4 Chloride 105 Carbon Dioxide 25.0 Anion Gap 5 L BUN 10 Creatinine 1.0 Estim Creat Clear Calc 67.4 eGFR > 60 BUN/Creatinine Ratio 10 L Glucose 132 H Calculated Osmolality 271 L Calcium 7.9 L Corrected Calcium 8.4 L Phosphorus 2.5 Magnesium 2.0 Total Bilirubin 1.5 H AST 42 H ALT 57 H Alkaline Phosphatase 163 H D Total Protein 5.7 Albumin 3.4 Globulin 2.3 Albumin/Globulin Ratio 1.5 Vancomycin Trough Cancelled Assessment & Plan A&P Narrative mrsa bacteremia. with possible L base pneumonia by cxr dm II CAD. see heart cath report hld. minimum rx will be vanco thru 10/06 if bc from this am are neg. if bc from this am pos, then needs [place] and longer rx. will see wed if remains here Time Spent With Patient Time: Total time spent is greater than 50% in coordination of care (as documented) at patient's floor/unit and/or counseling patient:
[2024-09-23] MEDS: VANCOMYCIN/NS 1 GM IVPB 200 ML IV ×2 (12:33→22:24)
[2024-09-23] MEDS: THIAMINE 100 MG TABLET PO ×2 (12:40→21:19)
--- NOTE | 2024-09-23 13:00 | ESCONSULT_ITS ---
RE: HERMAN STEEL : 1945 DATE OF CONSULTATION: 09/23/2024 REFERRING PHYSICIAN: Dawit Calderon MD REASON FOR CONSULTATION: Bacteremia with MRSA. HISTORY OF PRESENT ILLNESS: The patient is an unfortunate 79-year-old. He has coronary artery disease as documented by the cardiac catheterization and bypass surgery is presumably planned. He also has MRSA bacteremia. He has no active sores and is not on dialysis. Cause of his MRSA bacteremia is not really well known. His transthoracic echo was negative. Blood cultures were negative, pending on repeat, but were positive when repeated the first time. If they need to be repeated yet again, we probably need a AZAM. They are repeated this morning. PAST MEDICAL HISTORY: The patient admits to medical problems of diabetes, coronary artery disease, and perhaps other problems as noted. His hyperlipidemia may be present as well based on medications, although he may take those other reasons. He is known to have peripheral vascular disease, but no active sores. ALLERGIES: NONE NOTED. IMMUNIZATIONS: Last tetanus is not known. He does take flu shot every year. He has had 6 COVID vaccines and has had pneumococcal vaccine as well. FAMILY HISTORY: Positive for cancer in his brother who of that and diabetes. SOCIAL HISTORY: He lives in [facility] his statement, but the face sheet suggests he lives in [place]. PHYSICAL EXAMINATION: The patient is agitated, alert, and cooperative. PLAN: He wants to get out of bed and see his brother. I am not certain why. I advised the staff of this, so they can get him back into bed. I will check on him again on Monday. DT: 11:46:24 TT: 11:58:00 Ref: [id number] - TID: [id number] MTDD
[2024-09-23] MEDS: HEPARIN SOD INJ 5000 UNIT/ML VIAL SC ×2 (13:16→21:19)
[2024-09-23 14:17] LABS: Syphilis Nonreactive (Nonreactive)
--- NOTE | 2024-09-23 14:25 | PC.SS ---
Rounding Note: Patient receiving IV antibiotics. Dr. Youssef is consulting.
[2024-09-23 14:31] LABS: Glucose Estimated Average 111 mg/dL (80-131); Hemoglobin A1C 5.5 % Hgb (4.8-6.0)
[2024-09-23 14:37] LABS: Hepatitis C Antibody Non Reactive (Non React)
[2024-09-23] MEDS: CLOPIDOGREL BISULFATE 75 MG TABLET PO (16:26)
--- NOTE | 2024-09-23 16:50 | PC.NURSE ---
patient complaining of severe pain to the back not relieved by lidoderm patch, called and made aware. waiting for order for pain med.
[2024-09-23] MEDS: KETOROLAC INJ 30 MG/ML VIAL IVP (16:55)
[2024-09-23] MEDS: HYDROcodone/APAP 7.5/325 TABLET 1 TAB PO (17:49)
--- NOTE | 2024-09-23 18:02 | XR_ITS ---
Examination: CT lumbar spine, without contrast. 2-D sagittal reconstructions. 2-D coronal reconstructions. 3-D reconstructions. Date and time of exam:September 23, 2024 1858 hours INDICATIONS: Back pain, MRSA bacteremia generalized weakness 3 days CTDI: vol (mGy):22.9 DLP: (mGycm):08/25/2018 Technique: Multiple 1.25 mm axial sections of the lumbar spine without intravenous contrast have been obtained. 2-D sagittal and coronal reconstructions have been obtained. 3-D reconstructions have been obtained. Low dose protocols were performed. One or more of the following dose reduction techniques were used; automated exposure control, adjustment of the mA and/or KV according to patient size, use of iterative reconstruction technique. Findings: Prominent osteopenia Advanced disc narrowing L1-L2, L2-L3, L3-L4 Abnormal air density in the thecal sac at the L1-L2 level, axial image 61 which may represent infection with gas-forming organism IMPRESSION: Recommend MRI lumbar spine follow-up pre and postcontrast to exclude epidural abscess at the L1-L2 level
--- NOTE | 2024-09-23 18:02 | XR_ITS ---
Examination: CT thoracic spine, without contrast. 2-D sagittal reconstructions. 2-D coronal reconstructions. 3-D reconstructions. Date and time of exam:September 23, 2024 at 1858 hours INDICATIONS: Back pain, MRSA bacteremia, clinical diagnosis epidural abscess back pain 2 days CTDI: vol (mGy):27.9 DLP: (mGycm):990 Technique: Multiple 1.25 mm axial sections of the thoracic spine without intravenous contrast have been obtained. 2-D sagittal and coronal reconstructions have been obtained. 3-D reconstructions have been obtained. Low dose protocols were performed. One or more of the following dose reduction techniques were used; automated exposure control, adjustment of the mA and/or KV according to patient size, use of iterative reconstruction technique. Findings: Prominent osteopenia Advanced disc narrowing T3-T4, T9-T10, T10-T11 No thoracic fracture 2 mm T10-T11 disc bulge IMPRESSION: Advanced degenerative disc disease T3-T4, T9-T10, T10-T11 MRI thoracic spine pre and postcontrast would best exclude epidural abscess
[2024-09-23] MEDS: ATORVASTATIN CALCIUM 20 MG TABLET PO (21:19)
[2024-09-23 21:49] LABS: Vancomycin,Trough 14.6 mcg/mL (5.0-10.0)
--- NOTE | 2024-09-23 22:44 | PC.NURSE ---
CT L-SPINE RESULTS RELAYED TO DR. GALVAN. NO NEW ORDERS GIVEN.
[2024-09-24] VITALS: BP 137/88; PULSE 73; PULSE 74; RESP 22; TEMP 36.7; O2SAT 95
[2024-09-24] MEDS: HYDROcodone/APAP 7.5/325 TABLET 1 TAB PO ×4 (00:59→20:42)
[2024-09-24 04:00] VITALS: BP 140/90; PULSE 70; PULSE 76; RESP 20; TEMP 36.8; O2SAT 95
[2024-09-24] MEDS: HEPARIN SOD INJ 5000 UNIT/ML VIAL SC (05:45)
[2024-09-24 06:00] VITALS: BMI 22.8
[2024-09-24 06:19] LABS: Basophils # (Auto) 0.1 Thou/mm3 (0.0-0.2); Basophils % (Auto) 1 % (0-2.5); Eosinophils # (Auto) 0.2 Thou/mm3 (0.0-0.5); Eosinophils % (Auto) 2 % (0-10); Hematocrit 33.1 % (41.0-53.0); Hemoglobin 11.8 g/dL (13.5-16.0); Immature Granulocytes Auto 0.18 Thou/mm3 (0.00-0.00); Lymphocytes # (Auto) 1.9 Thou/mm3 (1.0-4.8); Lymphocytes % (Auto) 15 % (10-50); Mean Corpuscular HGB Conc 35.6 g/dl (31.0-37.0); Mean Corpuscular Hemoglobin 33.1 pg (25.0-35.0); Mean Corpuscular Volume 93 fL (80-100); Monocytes # (Auto) 1.2 Thou/mm3 (0.0-0.8); Monocytes % (Auto) 10 % (0-12); Neutrophils # (Auto) 9.0 Thou/mm3 (1.8-7.7); Neutrophils % (Auto) 72 % (37-80); Nucleated Red Blood Cell # 0.00 Thou/mm3 (0.00-0.00); Nucleated Red Blood Cell % 0 /100 WBC (0); Platelet Count 277 Thou/mm3 (140-440); RDW Standard Deviation 40.1 fL (35.1-43.9); Red Blood Count 3.56 Miln/mm3 (4.50-5.90); White Blood Count 12.6 Thou/mm3 (3.8-10.6)
[2024-09-24 06:46] LABS: Alanine Aminotransferase 45 U/L (10-49); Albumin, Serum 3.5 gm/dL (3.4-4.8); Albumin/Globulin Ratio 1.5 (1.2-2.2); Alkaline Phosphatase 150 U/L (46-116); Anion Gap 8 (7-16); Aspartate Amino Transferase 40 U/L (0-34); BUN/Creatinine Ratio 13 Ratio (12-20); Bilirubin,Total 1.4 mg/dL (0.3-1.2); Blood Urea Nitrogen 10 mg/dL (9-23); Calcium 8.3 mg/dL (8.3-10.6); Calcium (Corrected) 8.7 mg/dL (8.5-10.1); Carbon Dioxide 24.5 mMol/L (20.0-31.0); Chloride 102 mMol/L (98-107); Creatinine (Component) 0.8 mg/dL (0.6-1.3); Estimated Creatinine Clearance 83.5 mL/min (>60); Globulin 2.3 gm/dL (2.3-3.5); Glucose 131 mg/dL (74-106); Osmolality,Calculated 269 (275-295); Potassium 4.2 mMol/L (3.4-5.1); Sodium 134 mMol/L (136-145); Total Protein 5.8 gm/dL (5.7-8.2); eGFR > 60 See Note
--- NOTE | 2024-09-24 07:53 | ESPR_ITS ---
Documentation for date of: 09/24/24 Subjective Subjective Interval history: Patient's heart cath shows severe triple-vessel disease Normal left ventricular systolic function ejection fraction 50% Patient would benefit from coronary artery bypass surgery Patient also positive blood cultures We will plan for a transesophageal echo Exam Vital Signs Temp Pulse Resp BP Pulse Ox O2 Del Method O2 Flow Rate 98.2 F 76 20 140/90 H 95 Room Air 6 09/24/24 04:00 09/24/24 04:00 09/24/24 04:00 09/24/24 04:00 09/24/24 04:00 09/23/24 20:00 09/23/24 04:00 Routine HEENT Exam Head: Present normocephalic and atraumatic Eye: Present EOMI and PERRL ENT: Present mucous membranes moist Routine Neck Exam Neck: Present supple and trachea midline Routine Respiratory Exam Respiratory: Present chest non-tender, lungs clear, normal breath sounds and no resp distress Routine Cardiovascular Exam Cardiovascular: Present RRR Routine Abdominal Exam Abdominal: Present soft and normoactive bowel sounds Routine Extremities Exam Extremities: Present full ROM Routine Skin Exam Skin: Present intact, dry and warm Routine Neurological Exam Neurological: Present alert, oriented X3 and CN II-XII intact Routine Psychiatric Exam Psychiatric: Present normal affect and normal thought process Objective Labs 09/24/24 05:34 09/24/24 05:34 Labs: Laboratory Results - last 24 hr 09/23/24 09/23/24 09/23/24 06:18 09:50 21:02 WBC RBC Hgb Hct MCV MCH MCHC RDW Std Deviation Plt Count Neut % (Auto) Lymph % (Auto) [place] % (Auto) Eos % (Auto) Baso % (Auto) Neut # (Auto) Lymph # (Auto) [place] # (Auto) Eos # (Auto) Baso # (Auto) Immature Gran # (Auto) Absolute Nucleated RBC Immature Gran % Nucleated RBC % Sodium Potassium Chloride Carbon Dioxide Anion Gap BUN Creatinine Estim Creat Clear Calc eGFR BUN/Creatinine Ratio Glucose Estimated Ave Glu mg/dL 111 Hemoglobin A1c 5.5 Calculated Osmolality Calcium Corrected Calcium Phosphorus 2.5 Magnesium 2.0 Total Bilirubin AST ALT Alkaline Phosphatase Total Protein Albumin Globulin Albumin/Globulin Ratio Vancomycin Trough 14.6 H Syphilis Serology Nonreactive Hepatitis C Antibody Non Reactive 09/24/24 05:34 WBC 12.6 H RBC 3.56 L Hgb 11.8 L Hct 33.1 L MCV 93 MCH 33.1 MCHC 35.6 RDW Std Deviation 40.1 Plt Count 277 Neut % (Auto) 72 Lymph % (Auto) 15 [place] % (Auto) 10 Eos % (Auto) 2 Baso % (Auto) 1 Neut # (Auto) 9.0 H Lymph # (Auto) 1.9 [place] # (Auto) 1.2 H Eos # (Auto) 0.2 Baso # (Auto) 0.1 Immature Gran # (Auto) 0.18 H Absolute Nucleated RBC 0.00 Immature Gran % 1 H Nucleated RBC % 0 Sodium 134 L Potassium 4.2 D Chloride 102 Carbon Dioxide 24.5 Anion Gap 8 BUN 10 Creatinine 0.8 Estim Creat Clear Calc 83.5 eGFR > 60 BUN/Creatinine Ratio [address] Glu mg/dL Hemoglobin A1c Calculated Osmolality 269 L Calcium 8.3 Corrected Calcium 8.7 Phosphorus Magnesium Total Bilirubin 1.4 H AST 40 H ALT 45 Alkaline Phosphatase 150 H Total Protein 5.8 Albumin 3.5 Globulin 2.3 Albumin/Globulin Ratio 1.5 Vancomycin Trough Syphilis Serology Hepatitis C Antibody Assessment & Plan A&P Narrative Patient blood cultures positive for gram-positive cocci/MRSA We will plan for transesophageal echo Cardiac catheter and coronary angiogram showed severe triple-vessel disease Patient will benefit from bypass surgery however this could await for complete resolution of the infection Time Spent With Patient Time: Total time spent is greater than 50% in coordination of care (as documented) at patient's floor/unit and/or counseling patient:
[2024-09-24 08:00] VITALS: BP 139/80; PULSE 68; PULSE 71; RESP 18; TEMP 36.6; O2SAT 96
[2024-09-24] MEDS: PANTOPRAZOLE 40 MG TABLET PO (08:23)
[2024-09-24] MEDS: ASPIRIN EC 81 MG TABEC PO (08:23)
[2024-09-24] MEDS: DOCUSATE SOD 100 MG CAPSULE PO (08:24)
[2024-09-24] MEDS: FOLIC ACID 1 MG TABLET PO ×2 (08:24→20:42)
[2024-09-24] MEDS: CLOPIDOGREL BISULFATE 75 MG TABLET PO (08:24)
[2024-09-24] MEDS: THIAMINE 100 MG TABLET PO ×2 (08:25→20:42)
[2024-09-24] MEDS: VANCOMYCIN/NS 1 GM IVPB 200 ML IV ×2 (10:04→21:33)
[2024-09-24] MEDS: INSULIN LISPRO (AdmeLOG) 1 UNIT/0.01 ML UNIT SC (11:42)
[2024-09-24 12:00] VITALS: BP 118/55; PULSE 68; PULSE 72; RESP 18; TEMP 36.6; O2SAT 96
[2024-09-24 12:41] LABS: Sed Rate (ESR) 48 mm/hr (0-20)
[2024-09-24 12:53] LABS: C-Reactive Protein 12.4 mg/dL (0.0-0.9)
--- NOTE | 2024-09-24 13:52 | ESPR_ITS ---
<Statement entered by Long Davis MD - 09/26/24 09:30> I have discussed and was present for the essential components of the history, physical examination, diagnosis, and treatment plan with the resident. I agree with the patient's care as documented by the resident and amended herein by me. Long Davis MD FACP. Documentation for date of: 09/24/24 Subjective Subjective Interval history: Patient seen eating breakfast in bed, resting comfortably. Denies chest pain, shortness of breath, fevers, chills, or neuro changes. ROS otherwise negative. Left foot wound clean, dry, with mild pain only when walking. Patient was unaware of possible AZAM or CABG plan ? this was explained at bedside. Nursing notes persistent back pain; patient reports mild to moderate pain worse with movement, denies weakness or bowel/bladder dysfunction. Exam Vital Signs Temp Pulse Resp BP Pulse Ox O2 Del Method O2 Flow Rate 97.8 F 68 18 118/55 L 96 Room Air 6 09/24/24 12:00 09/24/24 12:09/24/24 12:09/24/24 12:09/24/24 12:09/24/24 12:09/23/24 04:00 Narrative Exam Physical Exam * General: Alert, eating, no acute distress. * HEENT: Atraumatic, moist mucous membranes. * Cardiac: Normal S1 S2, regular rate and rhythm. * Respiratory: Clear bilaterally. * Abdomen: Soft, non-tender, non-distended. * Extremities: Warm, foot wound clean and dry, no new drainage. * Neuro: Alert and oriented x3, no focal deficits. Objective Labs 09/24/24 05:34 09/24/24 05:34 Labs: Laboratory Results - last 24 hr 09/23/24 09/23/24 09/24/24 09:50 21:02 05:34 WBC 12.6 H RBC 3.56 L Hgb 11.8 L Hct 33.1 L MCV 93 MCH 33.1 MCHC 35.6 RDW Std Deviation 40.1 Plt Count 277 Neut % (Auto) 72 Lymph % (Auto) 15 [place] % (Auto) 10 Eos % (Auto) 2 Baso % (Auto) 1 Neut # (Auto) 9.0 H Lymph # (Auto) 1.9 [place] # (Auto) 1.2 H Eos # (Auto) 0.2 Baso # (Auto) 0.1 Immature Gran # (Auto) 0.18 H Absolute Nucleated RBC 0.00 Immature Gran % 1 H Nucleated RBC % 0 ESR Sodium 134 L Potassium 4.2 D Chloride 102 Carbon Dioxide 24.5 Anion Gap 8 BUN 10 Creatinine 0.8 Estim Creat Clear Calc 83.5 eGFR > 60 BUN/Creatinine Ratio 13 [address]ucose [address] Glu mg/dL 111 Hemoglobin A1c 5.5 Calculated Osmolality 269 L Calcium 8.3 Corrected Calcium 8.7 Total Bilirubin 1.4 H AST 40 H ALT 45 Alkaline Phosphatase 150 H C-Reactive Prot, Quant Total Protein 5.8 Albumin 3.5 Globulin 2.3 Albumin/Globulin Ratio 1.5 Vancomycin Trough 14.6 H Syphilis Serology Nonreactive Hepatitis C Antibody Non Reactive 09/24/24 12:11 WBC RBC Hgb Hct MCV MCH MCHC RDW Std Deviation Plt Count Neut % (Auto) Lymph % (Auto) [place] % (Auto) Eos % (Auto) Baso % (Auto) Neut # (Auto) Lymph # (Auto) [place] # (Auto) Eos # (Auto) Baso # (Auto) Immature Gran # (Auto) Absolute Nucleated RBC Immature Gran % Nucleated RBC % ESR 48 H Sodium Potassium Chloride Carbon Dioxide Anion Gap BUN Creatinine Estim Creat Clear Calc eGFR BUN/Creatinine Ratio Glucose Estimated Ave Glu mg/dL Hemoglobin A1c Calculated Osmolality Calcium Corrected Calcium Total Bilirubin AST ALT Alkaline Phosphatase C-Reactive Prot, Quant 12.4 H Total Protein Albumin Globulin Albumin/Globulin Ratio Vancomycin Trough Syphilis Serology Hepatitis C Antibody Quality Measures Quality Measures none Advance care planning discussed with:: patient Assessment & Plan Assessment Current Active Medications: Generic Name Dose Route Start Last Admin Trade Name Gabino PRN Reason Stop Dose Admin Acetaminophen 650 mg 09/20/24 18:56 Acetaminophen 325 Mg Tablet PO 10/19/24 20:44 Q6H PRN FEVER > 100.4 Acetaminophen 1,000 mg 09/22/24 16:40 09/22/24 16:43 Acetaminophen 500 Mg Tablet PO 10/19/24 20:44 1,000 mg Q6H PRN Administration PAIN SCALE 1-3 (mild Hydrocodone Bitart/Acetaminophen 1 tab 09/23/24 17:40 09/24/24 07:55 Hydrocodone/Apap 7.5/325 Tablet PO 09/28/24 17:39 1 tab Q6HR PRN Administration PAIN SCALE 4-10(Mod-Sev Aspirin 81 mg 09/20/24 09:00 09/24/24 08:23 Aspirin Ec 81 Mg Tabec PO 10/20/24 08:59 81 mg QDAY SHANNAN Administration Atorvastatin Calcium 20 mg 09/19/24 21:00 09/23/24 21:19 Atorvastatin Calcium 20 Mg Tablet PO 10/19/24 20:59 20 mg HS SHANNAN Administration Clopidogrel Bisulfate 75 mg 09/24/24 09:00 09/24/24 08:24 Clopidogrel Bisulfate 75 Mg Tablet PO 10/24/24 08:59 75 mg QDAY SHANNAN Administration Dextrose 25 ml 09/19/24 21:03 Dextrose 50%-Water Inj 50 Ml Syringe IV 10/19/24 21:02 Q15MIN PRN BG 50-70 responsive npo pt Dextrose 50 ml 09/19/24 21:03 Dextrose 50%-Water Inj 50 Ml Syringe IV 10/19/24 21:02 Q15MIN PRN BG <50 OR BG <70 & pt unresponsive Docusate Sodium 100 mg 09/20/24 09:00 09/24/24 08:24 Docusate Sod 100 Mg Capsule PO 10/20/24 08:59 100 mg QDAY SHANNAN Administration Protocol Folic Acid 1 mg 09/19/24 21:15 09/24/24 08:24 Folic Acid 1 Mg Tablet PO 09/24/24 21:14 1 mg BID SHANNAN Administration Gabapentin 300 mg 09/21/24 13:46 09/23/24 10:58 Gabapentin 300 Mg Capsule PO 10/21/24 13:45 300 mg Q8H PRN Administration back pain Glucagon 1 mg 09/19/24 21:03 Glucagon Inj 1 Mg Vial IM Q15MIN PRN BG <70, and no IV access Heparin Sodium (Porcine) 5,000 unit 09/19/24 22:00 09/24/24 05:45 Heparin Sod Inj 5000 Unit/Ml Vial SC 10/03/24 21:59 5,000 unit Q8HR SHANNAN Administration Vancomycin/Sodium Chloride 200 mls @ 120 mls/hr 09/20/24 22:00 09/24/24 10:04 Vancomycin/Ns 1 Gm Ivpb IV 09/27/24 21:59 120 mls/hr Q12H SHANNAN Administration Protocol Insulin Human Lispro 0 unit 09/20/24 07:30 09/24/24 11:42 Insulin Lispro (Admelog) 1 Unit/0.01 Ml Unit SC 10/20/24 07:29 1 unit AC SHANNAN Administration Protocol Lidocaine 1 patch 09/20/24 18:56 09/23/24 04:35 Lidocaine 5% 1 Patch TOP 10/20/24 18:55 1 patch UD PRN Administration PAIN Protocol Ondansetron HCl 4 mg 09/19/24 20:45 Ondansetron Inj 2 Mg/Ml Inj 2 Ml IVP 10/19/24 20:44 Q6H PRN NAUSEA OR VOMITING Protocol Pantoprazole Sodium 40 mg 09/20/24 09:00 09/24/24 08:23 Pantoprazole 40 Mg Tablet PO 10/20/24 08:59 40 mg QDAY SHANNAN Administration Pharmacy Consult 1 each 09/20/24 11:10 Vancomycin Pharmacy To Dose 1 Each Each IV 10/20/24 11:09 QDAY PRN PROTOCOL Thiamine HCl 100 mg 09/19/24 21:15 09/24/24 08:25 Thiamine 100 Mg Tablet PO 09/24/24 21:14 100 mg BID SHANNAN Administration Plan Plan 79-year-old male with past medical history of diabetes, sciatica, [place] fever, hyperlipidemia, alcohol use disorder, 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 #Severe triple vessel disease s/p cardiac cath 09/23/24: LAD 90% proximal lesion, obtuse marginal 99% midsegment lesion, RCA 100% mid-distal occlusion. EF on cath 50% (Echo prior 65%). Patient denies chest pain or SOB. EKG on admission without ischemic changes. Troponins peaked at 0.691, now resolved. * Cardiology Dr. Stafford consulted ? appreciate recommendations. He has ordered a AZAM, which will be done tomorrow to rule out endocarditis given persistent positive cultures. * Patient will require CABG but not a candidate until MRSA bacteremia cleared and blood cultures negative. * Continue aspirin 81 mg daily, Plavix, atorvastatin 80 mg daily. * CABG to be planned outpatient once cleared. * NPO after midnight for AZAM. * Hold heparin for AZAM * Continue telemetry, monitor for chest pain/SOB. #MRSA bacteremia Likely source: diabetic foot wound. Repeat blood cultures remain positive. * Continue IV vancomycin (vanc trough therapeutic). Zosyn discontinued ? not needed. * Ordered repeat blood culture today. * ID (Dr. Youssef) consulted, minimum vanc through 10/06 if cleared; longer course + AZAM if cultures remain positive. * ESR and CRP ordered #Diabetic foot infection Left foot s/p I&D on 09/20/24 for soft tissue infection of fifth metatarsal. Wound clean, dry, mild pain only with ambulation. * Wound care following. * Ordered MRI of foot to evaluate for osteomyelitis. * Continue local wound checks. #Possible epidural abscess/discitis Patient with persistent back pain, worse with movement, no focal neuro signs. Prior CT lumbar showed air density in thecal sac at L1?L2. * Ordered MRI lumbar spine to evaluate for discitis or epidural abscess. * Monitor neuro exam closely; maintain pain control with gabapentin as needed. #Transaminitis / Hyperbilirubinemia Likely related to alcohol use or mild dehydration. Br stable ~1.4?1.6, AST/ALT mild elevation. No abdominal pain. * Abdominal US negative for cholelithiasis, CBD normal, moderate hepatomegaly. * Daily CMP. 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 #Type 2 diabetes mellitus, well controlled A1c 5.5 on this admission. On metformin 500 mg BID at baseline. * ACHS glucose checks. * SSI coverage. * Hypoglycemia protocol in place. #Alcohol use disorder No signs of withdrawal; CIWA off. * Thiamine, folic acid continued. * Counseling for cessation continues. #Possible early left base pneumonia Seen on CXR only, no clinical signs. Covered by current IV vanc. Afebrile, no cough/SOB. * No change in antibiotics. * Monitor. Health Maintenance: * Disposition: Med telemetry, MRSA bacteremia. * Feeding: Carb-consistent diet, NPO after midnight. * Thromboprophylaxis: Heparin held for AZAM. * GI prophylaxis: Pantoprazole. * Code Status: DNR. ----- Plan discussed with attending physician Dr. Ryan Long MD PGY-1 Internal Medicine Patient seen and examined at bedside, no acute overnight events. I discussed and supervised with the tax intern physician who took care of this patient. I personally saw and examined the patient. I agree with most of the assessment and plan. Patient feels overall improved, but notes significant lower back pain. Pending MRI of foot and spine. ESR and CRP elevated. Repeat blood cultures 1/2 positive, repeat cultures drawn. Pending AZAM for endocarditis evaluation. Patient requires CABG, will not be performed until bacteremia clears. Plan of care discussed with attending Dr. Davis. Colin Teran MD PGY-2
--- NOTE | 2024-09-24 15:43 | PC.SS ---
Rounding Note: AZAM and MRI are pending. Blood cultures to be repeated.
[2024-09-24 16:00] VITALS: BP 147/65; PULSE 75; PULSE 83; RESP 20; TEMP 37.5; O2SAT 97
[2024-09-24 16:04] VITALS: BMI 13.0
[2024-09-24] MEDS: HYDROmorphone INJ 2 MG/ML VIAL 0.5 MG IVP (16:17)
[2024-09-24 20:00] VITALS: BP 143/66; PULSE 77; PULSE 89; RESP 19; TEMP 36.9; O2SAT 95
[2024-09-24] MEDS: ATORVASTATIN CALCIUM 20 MG TABLET PO (20:42)
[2024-09-24] MEDS: LIDOCAINE 5% 1 PATCH TOP (21:33)
[2024-09-25] VITALS (20 sets, daily range): BP systolic 126–169; BP diastolic 61–89; PULSE 68–99; RESP 12–22; TEMP 36.3–37.3; O2SAT 92–99; BMI 22.8
[2024-09-25] MEDS: HYDROcodone/APAP 7.5/325 TABLET 1 TAB PO (02:22)
[2024-09-25 06:18] LABS: Basophils # (Auto) 0.1 Thou/mm3 (0.0-0.2); Basophils % (Auto) 1 % (0-2.5); Eosinophils # (Auto) 0.3 Thou/mm3 (0.0-0.5); Eosinophils % (Auto) 3 % (0-10); Hematocrit 33.2 % (41.0-53.0); Hemoglobin 12.0 g/dL (13.5-16.0); Immature Granulocytes Auto 0.20 Thou/mm3 (0.00-0.00); Lymphocytes # (Auto) 1.7 Thou/mm3 (1.0-4.8); Lymphocytes % (Auto) 13 % (10-50); Mean Corpuscular HGB Conc 36.1 g/dl (31.0-37.0); Mean Corpuscular Hemoglobin 34.0 pg (25.0-35.0); Mean Corpuscular Volume 94 fL (80-100); Monocytes # (Auto) 1.2 Thou/mm3 (0.0-0.8); Monocytes % (Auto) 9 % (0-12); Neutrophils # (Auto) 10.1 Thou/mm3 (1.8-7.7); Neutrophils % (Auto) 74 % (37-80); Nucleated Red Blood Cell # 0.00 Thou/mm3 (0.00-0.00); Nucleated Red Blood Cell % 0 /100 WBC (0); Platelet Count 313 Thou/mm3 (140-440); RDW Standard Deviation 40.1 fL (35.1-43.9); Red Blood Count 3.53 Miln/mm3 (4.50-5.90); White Blood Count 13.7 Thou/mm3 (3.8-10.6)
[2024-09-25 07:17] LABS: Alanine Aminotransferase 38 U/L (10-49); Albumin, Serum 3.5 gm/dL (3.4-4.8); Albumin/Globulin Ratio 1.5 (1.2-2.2); Alkaline Phosphatase 144 U/L (46-116); Anion Gap 7 (7-16); Aspartate Amino Transferase 33 U/L (0-34); BUN/Creatinine Ratio 10 Ratio (12-20); Bilirubin,Total 1.4 mg/dL (0.3-1.2); Blood Urea Nitrogen 8 mg/dL (9-23); Calcium 8.2 mg/dL (8.3-10.6); Calcium (Corrected) 8.6 mg/dL (8.5-10.1); Carbon Dioxide 25.5 mMol/L (20.0-31.0); Chloride 101 mMol/L (98-107); Creatinine (Component) 0.8 mg/dL (0.6-1.3); Estimated Creatinine Clearance 83.5 mL/min (>60); Globulin 2.4 gm/dL (2.3-3.5); Glucose 163 mg/dL (74-106); Magnesium 1.9 mg/dL (1.6-2.6); Osmolality,Calculated 268 (275-295); Phosphorous 2.1 mg/dL (2.4-5.1); Potassium 3.6 mMol/L (3.4-5.1); Sodium 133 mMol/L (136-145); Total Protein 5.9 gm/dL (5.7-8.2); eGFR > 60 See Note
--- NOTE | 2024-09-25 08:00 | ECHO_ITS ---
Transesophageal Echo Report Ht (in): 72 Wt (lb): 172 Exam Location: Echo Lab Status: Inpatient Block Cutter: Janette Aguero Indications: Procedure Performed: BP: 130 / 74 HR: 103 Technical Quality: Adequate FINDINGS Left Ventricle Normal left ventricular size, wall thickness, systolic function with no obvious regional wall motion abnormalities. The ejection fraction is visually estimated at 55%. Right Ventricle The right ventricle is normal in size and systolic function. Left Atrium The left atrium is normal by two-dimensional, color flow and Doppler imaging with no structural abnormalities, no thrombus formation present. Right Atrium The right atrium is normal by two-dimensional imaging, color flow and Doppler imaging with no structural abnormalities, no thrombus formation present. Atrial Appendages The left atrial appendage appears normal with no evidence for thrombus. Atrial Septum The interatrial septum appears normal with no evidence of a shunt. Bubble study negative for PFO/ASD. Aorta The aorta is normal by two-dimensional, color flow and Doppler interrogation. Mitral Valve The mitral valve is normal by two-dimensional, color flow and Doppler interrogation. There is no significant mitral valve regurgitation, stenosis or prolapse. Aortic Valve The aortic valve is trileaflet and normal by two-dimensional, color flow and Doppler interrogation. There is no significant aortic valve regurgitation. Tricuspid Valve The tricuspid valve is normal by two-dimensional, color flow and Doppler interrogation. There is no significant tricuspid valve regurgitation. Pulmonic Valve The pulmonic valve is normal by two-dimensional, color flow and Doppler interrogation. There is no significant pulmonic valve regurgitation. Vessels The pulmonary artery appears normal. The inferior vena cava pulmonary and hepatic veins appear normal. Pericardium The pericardium is normal by two-dimensional imaging. There is no significant pericardial effusion. CONCLUSIONS Indications: Bacteremia Normal LV/Normal RV No Valvular Vegetations, Lesions, or Abnormalities Noted. No Pericardial Effusion. Gosia Stafford (Electronically Signed) Final Date: 25 September 2024 16:04
[2024-09-25] MEDS: BENZOCAINE 20% (Hurricaine) SPRAY 1 DOSE TOP ×2 (08:12→13:21)
[2024-09-25] MEDS: fentaNYL CIT INJ 50 mCg/ML AMP 2ML IVP (08:16)
[2024-09-25] MEDS: MIDAZOLAM INJ 1 MG/ML VIAL 2 ML 4 MG IVP (08:18)
[2024-09-25] MEDS: VANCOMYCIN/NS 1 GM IVPB 200 ML IV ×2 (11:00→21:42)
[2024-09-25] MEDS: HYDROmorphone INJ 2 MG/ML VIAL 0.5 MG IVP ×2 (11:19→16:59)
--- NOTE | 2024-09-25 13:00 | PD.IDPROG ---
Subjective Subjective Interval history: bc pos 09/21 and then 1/2 09/23 on vano with benji of 1 to ox noted. no wellington noted. Exam Vital Signs Temp Pulse Resp BP Pulse Ox O2 Del Method O2 Flow Rate 99.1 F 72 18 154/87 H 94 L Room Air 4 09/25/24 07:16 09/25/24 09:30 09/25/24 09:30 09/25/24 09:30 09/25/24 09:30 09/25/24 09:30 09/25/24 08:27 Narrative Exam limited eval today Objective - Internal Medicine Labs 09/25/24 05:45 09/25/24 05:45 Labs: Laboratory Results - last 24 hr 09/25/24 05:45 WBC 13.7 H RBC 3.53 L Hgb 12.0 L Hct 33.2 L MCV 94 MCH 34.0 MCHC 36.1 RDW Std Deviation 40.1 Plt Count 313 D Neut % (Auto) 74 Lymph % (Auto) 13 [place] % (Auto) 9 Eos % (Auto) 3 Baso % (Auto) 1 Neut # (Auto) 10.1 H Lymph # (Auto) 1.7 [place] # (Auto) 1.2 H Eos # (Auto) 0.3 Baso # (Auto) 0.1 Immature Gran # (Auto) 0.20 H Absolute Nucleated RBC 0.00 Immature Gran % 2 H Nucleated RBC % 0 Sodium 133 L Potassium 3.6 D Chloride 101 Carbon Dioxide 25.5 Anion Gap 7 BUN 8 L Creatinine 0.8 Estim Creat Clear Calc 83.5 eGFR > 60 BUN/Creatinine Ratio 10 L Glucose 163 H Calculated Osmolality 268 L Calcium 8.2 L Corrected Calcium 8.6 Phosphorus 2.1 L Magnesium 1.9 Total Bilirubin 1.4 H AST 33 ALT 38 Alkaline Phosphatase 144 H Total Protein 5.9 Albumin 3.5 Globulin 2.4 Albumin/Globulin Ratio 1.5 Assessment & Plan A&P Narrative await wellington. will likely see again monday as monday is a holiday. Time Spent With Patient Time: Total time spent is greater than 50% in coordination of care (as documented) at patient's floor/unit and/or counseling patient:
--- NOTE | 2024-09-25 14:26 | ESPR_ITS ---
<Statement entered by Long Davis MD - 09/26/24 19:45> I have discussed and was present for the essential components of the history, physical examination, diagnosis, and treatment plan with the resident. I agree with the patient's care as documented by the resident and amended herein by me. Long Davis MD FACP. Documentation for date of: 09/25/24 Subjective Subjective Interval history: Initially not in room during rounds ? patient was at AZAM attempt this morning. Came back later and found patient sitting comfortably at bedside. He complained about the AZAM attempt, saying it was uncomfortable and he kept gagging and biting the tube. He denies any chest pain or shortness of breath. ROS otherwise negative. Exam Vital Signs Temp Pulse Resp BP Pulse Ox O2 Del Method O2 Flow Rate 99.1 F 72 18 154/87 H 94 L Room Air 4 09/25/24 07:16 09/25/24 09:30 09/25/24 09:30 09/25/24 09:30 09/25/24 09:30 09/25/24 09:30 09/25/24 08:27 Narrative Exam * General: Alert, eating, no acute distress. * HEENT: Atraumatic, moist mucous membranes. * Cardiac: Normal S1 S2, regular rate and rhythm. * Respiratory: Clear bilaterally. * Abdomen: Soft, non-tender, non-distended. * Extremities: Warm, foot wound clean and dry, no new drainage. * Neuro: Alert and oriented x3, no focal deficits. Objective Labs 09/25/24 05:45 09/25/24 05:45 Labs: Laboratory Results - last 24 hr 09/25/24 05:45 WBC 13.7 H RBC 3.53 L Hgb 12.0 L Hct 33.2 L MCV 94 MCH 34.0 MCHC 36.1 RDW Std Deviation 40.1 Plt Count 313 D Neut % (Auto) 74 Lymph % (Auto) 13 [place] % (Auto) 9 Eos % (Auto) 3 Baso % (Auto) 1 Neut # (Auto) 10.1 H Lymph # (Auto) 1.7 [place] # (Auto) 1.2 H Eos # (Auto) 0.3 Baso # (Auto) 0.1 Immature Gran # (Auto) 0.20 H Absolute Nucleated RBC 0.00 Immature Gran % 2 H Nucleated RBC % 0 Sodium 133 L Potassium 3.6 D Chloride 101 Carbon Dioxide 25.5 Anion Gap 7 BUN 8 L Creatinine 0.8 Estim Creat Clear Calc 83.5 eGFR > 60 BUN/Creatinine Ratio 10 L Glucose 163 H Calculated Osmolality 268 L Calcium 8.2 L Corrected Calcium 8.6 Phosphorus 2.1 L Magnesium 1.9 Total Bilirubin 1.4 H AST 33 ALT 38 Alkaline Phosphatase 144 H Total Protein 5.9 Albumin 3.5 Globulin 2.4 Albumin/Globulin Ratio 1.5 Quality Measures Quality Measures none Advance care planning discussed with:: patient Assessment & Plan Assessment Current Active Medications: Generic Name Dose Route Start Last Admin Trade Name Freq PRN Reason Stop Dose Admin Acetaminophen 650 mg 09/20/24 18:56 Acetaminophen 325 Mg Tablet PO 10/19/24 20:44 Q6H PRN FEVER > 100.4 Acetaminophen 1,000 mg 09/22/24 16:40 09/22/24 16:43 Acetaminophen 500 Mg Tablet PO 10/19/24 20:44 1,000 mg Q6H PRN Administration PAIN SCALE 1-3 (mild Hydrocodone Bitart/Acetaminophen 1 tab 09/25/24 11:13 Hydrocodone/Apap 7.5/325 Tablet PO 09/28/24 17:39 Q6HR PRN PAIN SCALE 4-6 (Moderate Aspirin 81 mg 09/20/24 09:00 09/25/24 10:54 Aspirin Ec 81 Mg Tabec PO 10/20/24 08:59 Not Given QDAY SHANNAN Atorvastatin Calcium 20 mg 09/19/24 21:00 09/24/24 20:42 Atorvastatin Calcium 20 Mg Tablet PO 10/19/24 20:59 20 mg HS SHANNAN Administration Clopidogrel Bisulfate 75 mg 09/24/24 09:00 09/24/24 08:24 Clopidogrel Bisulfate 75 Mg Tablet PO 10/24/24 08:59 75 mg QDAY SHANNAN Administration Dextrose 25 ml 09/19/24 21:03 Dextrose 50%-Water Inj 50 Ml Syringe IV 10/19/24 21:02 Q15MIN PRN BG 50-70 responsive npo pt Dextrose 50 ml 09/19/24 21:03 Dextrose 50%-Water Inj 50 Ml Syringe IV 10/19/24 21:02 Q15MIN PRN BG <50 OR BG <70 & pt unresponsive Docusate Sodium 100 mg 09/20/24 09:00 09/25/24 10:54 Docusate Sod 100 Mg Capsule PO 10/20/24 08:59 Not Given QDAY [facility] Protocol Fentanyl Citrate 50 mcg 09/25/24 14:14 Fentanyl Cit Inj 50 Mcg/Ml Amp 2ml IVP 09/25/24 16:14 Q5MIN PRN PAIN SCALE 4-10(Mod-Sev Gabapentin 300 mg 09/21/24 13:46 09/23/24 10:58 Gabapentin 300 Mg Capsule PO 10/21/24 13:45 300 mg Q8H PRN Administration back pain Glucagon 1 mg 09/19/24 21:03 Glucagon Inj 1 Mg Vial IM Q15MIN PRN BG <70, and no IV access Heparin Sodium (Porcine) 5,000 unit 09/19/24 22:00 09/24/24 05:45 Heparin Sod Inj 5000 Unit/Ml Vial SC 10/03/24 21:59 5,000 unit Q8HR SHANNAN Administration Hydralazine HCl 5 mg 09/25/24 14:14 Hydralazine Inj 20 Mg/Ml Vial IV 09/25/24 16:14 Q20MIN PRN SEE COMMENTS Hydromorphone HCl 0.5 mg 09/25/24 11:12 09/25/24 11:19 Hydromorphone Inj 2 Mg/Ml Vial IVP 09/30/24 11:11 0.5 mg Q4HR PRN Administration PAIN SCALE 7-10 (Severe Vancomycin/Sodium Chloride 200 mls @ 120 mls/hr 09/20/24 22:00 09/25/24 11:00 Vancomycin/Ns 1 Gm Ivpb IV 09/27/24 21:59 120 mls/hr Q12H SHANNAN Administration Protocol Insulin Human Lispro 0 unit 09/20/24 07:30 09/25/24 11:46 Insulin Lispro (Admelog) 1 Unit/0.01 Ml Unit SC 10/20/24 07:29 Not Given AC [facility] Protocol Lidocaine 1 patch 09/20/24 18:56 09/24/24 21:33 Lidocaine 5% 1 Patch TOP 10/20/24 18:55 1 patch UD PRN Administration PAIN Protocol Ondansetron HCl 4 mg 09/19/24 20:45 Ondansetron Inj 2 Mg/Ml Inj 2 Ml IVP 10/19/24 20:44 Q6H PRN NAUSEA OR VOMITING Protocol Pantoprazole Sodium 40 mg 09/20/24 09:00 09/25/24 10:55 Pantoprazole 40 Mg Tablet PO 10/20/24 08:59 Not Given QDAY [facility] Pharmacy Consult 1 each 09/20/24 11:10 Vancomycin Pharmacy To Dose 1 Each Each IV 10/20/24 11:09 QDAY PRN PROTOCOL Plan Plan 79-year-old male with past medical history of diabetes, sciatica, [place] fever, hyperlipidemia, alcohol use disorder, 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 #Severe triple vessel disease s/p cardiac cath 09/23/24: LAD 90% proximal lesion, obtuse marginal 99% midsegment lesion, RCA 100% mid-distal occlusion. EF on cath 50% (Echo prior 65%). Patient denies chest pain or SOB. EKG on admission without ischemic changes. Troponins peaked at 0.691, now resolved. * Cardiology Dr. Stafford consulted ? AZAM today to evaluate for endocarditis. Initial attempt unsuccessful due to patient biting the probe; will repeat under general anesthesia this afternoon. * Patient will require CABG but not a candidate until MRSA bacteremia cleared and blood cultures negative. * Continue aspirin 81 mg daily, Plavix, atorvastatin 80 mg daily. * CABG to be planned outpatient once cleared. * NPO status maintained. * Hold heparin for AZAM * Continue telemetry, monitor for chest pain/SOB. #MRSA bacteremia Likely source: diabetic foot wound. Repeat blood cultures remain positive. * Continue IV vancomycin (vanc trough therapeutic). Zosyn discontinued ? not needed. * Ordered repeat blood culture today. * ID (Dr. Youssef) consulted, minimum vanc through 10/06 if cleared; longer course + AZAM if cultures remain positive. * ESR and CRP ordered and elevated #Diabetic foot infection Left foot s/p I&D on 09/20/24 for soft tissue infection of fifth metatarsal. Wound clean, dry, mild pain only with ambulation. * Wound care following. * Ordered MRI of foot to evaluate for osteomyelitis. * Continue local wound checks. #Possible epidural abscess/discitis Patient with persistent back pain, worse with movement, no focal neuro signs. Prior CT lumbar showed air density in thecal sac at L1?L2. * Ordered MRI lumbar spine to evaluate for discitis or epidural abscess. * Monitor neuro exam closely; maintain pain control with gabapentin as needed. #Transaminitis / Hyperbilirubinemia Likely related to alcohol use or mild dehydration. Br stable ~1.4?1.6, AST/ALT mild elevation. No abdominal pain. * Abdominal US negative for cholelithiasis, CBD normal, moderate hepatomegaly. * Daily CMP. 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 #Type 2 diabetes mellitus, well controlled A1c 5.5 on this admission. On metformin 500 mg BID at baseline. * ACHS glucose checks. * SSI coverage. * Hypoglycemia protocol in place. #Alcohol use disorder No signs of withdrawal; CIWA off. * Thiamine, folic acid continued. * Counseling for cessation continues. #Possible early left base pneumonia Seen on CXR only, no clinical signs. Covered by current IV vanc. Afebrile, no cough/SOB. * No change in antibiotics. * Monitor. Health Maintenance: * Disposition: Med telemetry, MRSA bacteremia. * Feeding: Carb-consistent diet, NPO after midnight. * Thromboprophylaxis: Heparin held for AZAM. * GI prophylaxis: Pantoprazole. * Code Status: DNR. ----- Plan discussed with attending physician Dr. Ryan Long MD PGY-1 Internal Medicine Patient seen and examined at bedside, no acute overnight events. I discussed and supervised with the senior internet sales consultant physician who took care of this patient. I personally saw and examined the patient. I agree with most of the assessment and plan. Patient received AZAM, negative. Pending MRI for back/foot. Most recent blood cultures currently negative x24 hours. Plan of care discussed with attending Dr. Davis. Colin Teran MD PGY-2
--- NOTE | 2024-09-25 14:31 | PD.IMPROG ---
Documentation for date of: 09/25/24 Subjective Subjective Interval history: WELLINGTON done - no evidence of vegetations in any of the cardiac valves EF50% Exam Vital Signs Temp Pulse Resp BP Pulse Ox O2 Del Method O2 Flow Rate 99.1 F 72 18 154/87 H 94 L Room Air 4 09/25/24 07:16 09/25/24 09:30 09/25/24 09:30 09/25/24 09:30 09/25/24 09:30 09/25/24 09:30 09/25/24 08:27 Routine HEENT Exam Head: Present normocephalic and atraumatic Eye: Present EOMI and PERRL ENT: Present mucous membranes moist Routine Neck Exam Neck: Present supple and trachea midline Routine Respiratory Exam Respiratory: Present chest non-tender, lungs clear, normal breath sounds and no resp distress Routine Cardiovascular Exam Cardiovascular: Present RRR Routine Abdominal Exam Abdominal: Present soft and normoactive bowel sounds Routine Extremities Exam Extremities: Present full ROM Routine Skin Exam Skin: Present intact, dry and warm Routine Neurological Exam Neurological: Present alert, oriented X3 and CN II-XII intact Routine Psychiatric Exam Psychiatric: Present normal affect and normal thought process Objective Labs 09/25/24 05:45 09/25/24 05:45 Labs: Laboratory Results - last 24 hr 09/25/24 05:45 WBC 13.7 H RBC 3.53 L Hgb 12.0 L Hct 33.2 L MCV 94 MCH 34.0 MCHC 36.1 RDW Std Deviation 40.1 Plt Count 313 D Neut % (Auto) 74 Lymph % (Auto) 13 [place] % (Auto) 9 Eos % (Auto) 3 Baso % (Auto) 1 Neut # (Auto) 10.1 H Lymph # (Auto) 1.7 [place] # (Auto) 1.2 H Eos # (Auto) 0.3 Baso # (Auto) 0.1 Immature Gran # (Auto) 0.20 H Absolute Nucleated RBC 0.00 Immature Gran % 2 H Nucleated RBC % 0 Sodium 133 L Potassium 3.6 D Chloride 101 Carbon Dioxide 25.5 Anion Gap 7 BUN 8 L Creatinine 0.8 Estim Creat Clear Calc 83.5 eGFR > 60 BUN/Creatinine Ratio 10 L Glucose 163 H Calculated Osmolality 268 L Calcium 8.2 L Corrected Calcium 8.6 Phosphorus 2.1 L Magnesium 1.9 Total Bilirubin 1.4 H AST 33 ALT 38 Alkaline Phosphatase 144 H Total Protein 5.9 Albumin 3.5 Globulin 2.4 Albumin/Globulin Ratio 1.5 Assessment & Plan A&P Narrative No evidence of endocarditios WELLINGTON negative for vegetations await wellington. will likely see again monday as monday is a holiday. Time Spent With Patient Time: Total time spent is greater than 50% in coordination of care (as documented) at patient's floor/unit and/or counseling patient:
--- NOTE | 2024-09-25 14:46 | SUR.PHASEI ---
1349: pt arrived to PACU via gurney, pt obtunded, breathing unlabored, VS stable, report from Nancy PATINO and Dr Bender 1400: pt remains sleepy, responds to voice but returns to sleep immediately 1430: pt awakens to commands, returns to sleep 1446: pt drowsy but arouses to voice, breathing unlabored, VS stable, report called to nurse Constanza PATINO, pt transferred to room at this time
--- NOTE | 2024-09-25 15:14 | PC.SS ---
STAFF NURSE MIDWIFE confirmed with patient's brother, Eugenio Barrett; that preferred SNF is [facility].
--- NOTE | 2024-09-25 15:14 | PC.SS ---
Rounding Note: Patient to receive AZAM and to repeat blood cultures.
[2024-09-26] VITALS: BP 131/68; PULSE 85; PULSE 92; RESP 23; TEMP 36.7; O2SAT 94
--- NOTE | 2024-09-26 | XR_ITS ---
Examination: MRI lumbar spine with intravenous contrast TECHNIQUE: Multiple axial sagittal MR images post intravenous administration 16 cc gadolinium Date and time: September 26, 2024 1735 hours INDICATIONS: Leg weakness one week, air density in the soft tissue posterior to L1 and L2 on the CT lumbar spine study September 23, 2024 FINDINGS: The images are degraded by patient motion There is epidural enhancement posterior to the L1-L2 levels, sagittal image 11, measuring up to 7.5 mm in thickness this area of enhancement and is impinging upon the cauda equina Vertebral body enhancement is not evident Disc enhancement is not evident IMPRESSION: Epidural enhancement posterior to the L1-L2 level, sagittal image 11, measuring up to 7.5 mm in thickness, suspicious for epidural abscess
[2024-09-26 04:00] VITALS: BP 128/61; PULSE 92; PULSE 93; RESP 22; TEMP 37.1; O2SAT 94
[2024-09-26 05:25] VITALS: BMI 22.3
[2024-09-26 07:37] LABS: Basophils # (Auto) 0.1 Thou/mm3 (0.0-0.2); Basophils % (Auto) 0 % (0-2.5); Eosinophils # (Auto) 0.0 Thou/mm3 (0.0-0.5); Eosinophils % (Auto) 0 % (0-10); Hematocrit 38.3 % (41.0-53.0); Hemoglobin 14.0 g/dL (13.5-16.0); Immature Granulocytes Auto 0.23 Thou/mm3 (0.00-0.00); Lymphocytes # (Auto) 0.9 Thou/mm3 (1.0-4.8); Lymphocytes % (Auto) 4 % (10-50); Mean Corpuscular HGB Conc 36.6 g/dl (31.0-37.0); Mean Corpuscular Hemoglobin 33.4 pg (25.0-35.0); Mean Corpuscular Volume 91 fL (80-100); Monocytes # (Auto) 1.3 Thou/mm3 (0.0-0.8); Monocytes % (Auto) 6 % (0-12); Neutrophils # (Auto) 18.0 Thou/mm3 (1.8-7.7); Neutrophils % (Auto) 88 % (37-80); Nucleated Red Blood Cell # 0.00 Thou/mm3 (0.00-0.00); Nucleated Red Blood Cell % 0 /100 WBC (0); Platelet Count 469 Thou/mm3 (140-440); RDW Standard Deviation 39.1 fL (35.1-43.9); Red Blood Count 4.19 Miln/mm3 (4.50-5.90); White Blood Count 20.5 Thou/mm3 (3.8-10.6)
[2024-09-26 08:00] VITALS: BP 115/81; PULSE 86; PULSE 92; RESP 24; TEMP 36.6; O2SAT 95
[2024-09-26 08:00] LABS: Alanine Aminotransferase 35 U/L (10-49); Albumin, Serum 3.9 gm/dL (3.4-4.8); Albumin/Globulin Ratio 1.4 (1.2-2.2); Alkaline Phosphatase 133 U/L (46-116); Anion Gap 12 (7-16); Aspartate Amino Transferase 37 U/L (0-34); BUN/Creatinine Ratio 10 Ratio (12-20); Bilirubin,Total 1.8 mg/dL (0.3-1.2); Blood Urea Nitrogen 8 mg/dL (9-23); Calcium 8.6 mg/dL (8.3-10.6); Calcium (Corrected) 8.7 mg/dL (8.5-10.1); Carbon Dioxide 23.2 mMol/L (20.0-31.0); Chloride 97 mMol/L (98-107); Creatinine (Component) 0.8 mg/dL (0.6-1.3); Estimated Creatinine Clearance 82.2 mL/min (>60); Globulin 2.8 gm/dL (2.3-3.5); Glucose 192 mg/dL (74-106); Magnesium 2.0 mg/dL (1.6-2.6); Osmolality,Calculated 267 (275-295); Phosphorous 2.2 mg/dL (2.4-5.1); Potassium 3.1 mMol/L (3.4-5.1); Sodium 132 mMol/L (136-145); Total Protein 6.7 gm/dL (5.7-8.2); eGFR > 60 See Note
[2024-09-26] MEDS: ASPIRIN EC 81 MG TABEC PO (08:33)
[2024-09-26] MEDS: NAPH,KPH MBDB 1 PACKET (1.5 GM) PO ×2 (08:33→20:15)
[2024-09-26] MEDS: DOCUSATE SOD 100 MG CAPSULE PO (08:33)
[2024-09-26] MEDS: CLOPIDOGREL BISULFATE 75 MG TABLET PO (08:33)
[2024-09-26] MEDS: PANTOPRAZOLE 40 MG TABLET PO (08:33)
[2024-09-26] MEDS: INSULIN LISPRO (AdmeLOG) 1 UNIT/0.01 ML UNIT SC ×3 (08:48→17:13)
[2024-09-26] MEDS: VANCOMYCIN/NS 1 GM IVPB 200 ML IV (10:34)
--- NOTE | 2024-09-26 11:51 | PC.SS ---
SS follow up note; MRI and ID Rec's pending at the time. SS will follow up with patient's brother in regards to SNF choice.
[2024-09-26 12:00] VITALS: BP 112/60; PULSE 89; PULSE 97; RESP 20; TEMP 37.2; O2SAT 96
[2024-09-26] MEDS: HYDROcodone/APAP 7.5/325 TABLET 1 TAB PO (13:05)
--- NOTE | 2024-09-26 13:54 | PC.SS ---
Addendum entered by Yumiko Collazo 09/26/24 14:23: SS follow up note; SS followed up with patient's brother, Eugenio in regards to SNF choice and he informed SS that he would like patient to discharge to [facility]. Patient will discharge to [facility]. SS contacted Nicole from [facility] and she informed SS she would contact SS to determine how many days patient has left. SS will stand by for further needs. Original Note: SS follow up note; SS send SNF inquiry through [employer] platform to all local facilities. SS will follow up with patient in regards to SNF choice.
[2024-09-26 14:48] LABS: Sed Rate (ESR) 40 mm/hr (0-20)
[2024-09-26 15:18] LABS: C-Reactive Protein 21.3 mg/dL (0.0-0.9)
--- NOTE | 2024-09-26 15:35 | ESPR_ITS ---
<Statement entered by Long Davis MD - 09/29/24 15:00> I have discussed and was present for the essential components of the history, physical examination, diagnosis, and treatment plan with the resident. I agree with the patient's care as documented by the resident and amended herein by me. Long Davis MD FACP. Documentation for date of: 09/26/24 Subjective Subjective Interval history: Patient seen at bedside this morning. He appears visibly uncomfortable and reports worsening back pain, but denies fevers, chills, chest pain, shortness of breath, new weakness, numbness, bowel or bladder changes, or wound issues. Appetite and other ROS negative. He initially refused MRI yesterday but after discussion today, he understands the importance and agreed to try again. We spoke with the application technician who confirmed they will attempt to complete the MRI today or tomorrow. Exam Vital Signs Temp Pulse Resp BP Pulse Ox O2 Del Method O2 Flow Rate 99.0 F 97 20 112/60 96 Room Air 1 09/26/24 12:00 09/26/24 12:00 09/26/24 12:00 09/26/24 12:00 09/26/24 12:00 09/26/24 12:00 09/26/24 00:00 Narrative Exam General: Alert, uncomfortable due to back pain. Cardiac: S1 S2 normal, RRR. Respiratory: Lungs clear bilaterally. Neuro: A&O x3, no focal deficit, moving all extremities. Extremities: No new swelling, foot dressing intact, no obvious new drainage. Lines: IV sites clean. Objective Labs 09/26/24 07:14 09/26/24 07:14 Labs: Laboratory Results - last 24 hr 09/26/24 09/26/24 07:14 07:14 WBC 20.5 H D RBC 4.19 L Hgb 14.0 D Hct 38.3 L MCV 91 MCH 33.4 MCHC 36.6 RDW Std Deviation 39.1 Plt Count 469 H D Neut % (Auto) 88 H Lymph % (Auto) 4 L [facility] % (Auto) 6 Eos % (Auto) 0 Baso % (Auto) 0 Neut # (Auto) 18.0 H Lymph # (Auto) 0.9 L [facility] # (Auto) 1.3 H Eos # (Auto) 0.0 Baso # (Auto) 0.1 Immature Gran # (Auto) 0.23 H Absolute Nucleated RBC 0.00 Immature Gran % 1 H Nucleated RBC % 0 ESR 40 H Sodium 132 L Potassium 3.1 L D Chloride 97 L Carbon Dioxide 23.2 Anion Gap 12 BUN 8 L Creatinine 0.8 Estim Creat Clear Calc 82.2 eGFR > 60 BUN/Creatinine Ratio 10 L Glucose 192 H Calculated Osmolality 267 L Calcium 8.6 Corrected Calcium 8.7 Phosphorus 2.2 L Magnesium 2.0 Total Bilirubin 1.8 H AST 37 H ALT 35 Alkaline Phosphatase 133 H C-Reactive Prot, Quant Cancelled 21.3 H Total Protein 6.7 Albumin 3.9 Globulin 2.8 Albumin/Globulin Ratio 1.4 Quality Measures Quality Measures VTE prophylaxis Advance care planning discussed with:: patient and spouse Assessment & Plan Assessment Current Active Medications: Generic Name Dose Route Start Last Admin Trade Name Freq PRN Reason Stop Dose Admin Acetaminophen 650 mg 09/20/24 18:56 Acetaminophen 325 Mg Tablet PO 10/19/24 20:44 Q6H PRN FEVER > 100.4 Acetaminophen 1,000 mg 09/22/24 16:40 09/22/24 16:43 Acetaminophen 500 Mg Tablet PO 10/19/24 20:44 1,000 mg Q6H PRN Administration PAIN SCALE 1-3 (mild Hydrocodone Bitart/Acetaminophen 1 tab 09/25/24 11:13 09/26/24 13:05 Hydrocodone/Apap 7.5/325 Tablet PO 09/28/24 17:39 1 tab Q6HR PRN Administration PAIN SCALE 4-6 (Moderate Aspirin 81 mg 09/20/24 09:00 09/26/24 08:33 Aspirin Ec 81 Mg Tabec PO 10/20/24 08:59 81 mg QDAY SHANNAN Administration Atorvastatin Calcium 20 mg 09/19/24 21:00 09/25/24 21:39 Atorvastatin Calcium 20 Mg Tablet PO 10/19/24 20:59 Not Given HS SHANNAN Clopidogrel Bisulfate 75 mg 09/24/24 09:00 09/26/24 08:33 Clopidogrel Bisulfate 75 Mg Tablet PO 10/24/24 08:59 75 mg QDAY SHANNAN Administration Dextrose 25 ml 09/19/24 21:03 Dextrose 50%-Water Inj 50 Ml Syringe IV 10/19/24 21:02 Q15MIN PRN BG 50-70 responsive npo pt Dextrose 50 ml 09/19/24 21:03 Dextrose 50%-Water Inj 50 Ml Syringe IV 10/19/24 21:02 Q15MIN PRN BG <50 OR BG <70 & pt unresponsive Docusate Sodium 100 mg 09/20/24 09:00 09/26/24 08:33 Docusate Sod 100 Mg Capsule PO 10/20/24 08:59 100 mg QDAY SHANNAN Administration Protocol Gabapentin 300 mg 09/21/24 13:46 09/23/24 10:58 Gabapentin 300 Mg Capsule PO 10/21/24 13:45 300 mg Q8H PRN Administration back pain Glucagon 1 mg 09/19/24 21:03 Glucagon Inj 1 Mg Vial IM Q15MIN PRN BG <70, and no IV access Heparin Sodium (Porcine) 5,000 unit 09/19/24 22:00 09/24/24 05:45 Heparin Sod Inj 5000 Unit/Ml Vial SC 10/03/24 21:59 5,000 unit Q8HR SHANNAN Administration Hydromorphone HCl 0.5 mg 09/25/24 11:12 09/25/24 16:59 Hydromorphone Inj 2 Mg/Ml Vial IVP 09/30/24 11:11 0.5 mg Q4HR PRN Administration PAIN SCALE 7-10 (Severe Vancomycin/Sodium Chloride 200 mls @ 120 mls/hr 09/20/24 22:00 09/26/24 10:34 Vancomycin/Ns 1 Gm Ivpb IV 09/27/24 21:59 120 mls/hr Q12H SHANNAN Administration Protocol Insulin Human Lispro 0 unit 09/20/24 07:30 09/26/24 12:19 Insulin Lispro (Admelog) 1 Unit/0.01 Ml Unit SC 10/20/24 07:29 2 unit AC SHANNAN Administration Protocol Lidocaine 1 patch 09/20/24 18:56 09/24/24 21:33 Lidocaine 5% 1 Patch TOP 10/20/24 18:55 1 patch UD PRN Administration PAIN Protocol Ondansetron HCl 4 mg 09/19/24 20:45 Ondansetron Inj 2 Mg/Ml Inj 2 Ml IVP 10/19/24 20:44 Q6H PRN NAUSEA OR VOMITING Protocol Pantoprazole Sodium 40 mg 09/20/24 09:00 09/26/24 08:33 Pantoprazole 40 Mg Tablet PO 10/20/24 08:59 40 mg QDAY SHANNAN Administration Pharmacy Consult 1 each 09/20/24 11:10 Vancomycin Pharmacy To Dose 1 Each Each IV 10/20/24 11:09 QDAY PRN PROTOCOL Potassium Phos/Sodium Phos 1 packet 09/26/24 09:00 09/26/24 08:33 [facility] 1 Packet (1.5 Gm) PO 10/26/24 08:59 1 packet BID SHANNAN Administration Plan 79-year-old male with past medical history of diabetes, sciatica, remote valley fever, hyperlipidemia, alcohol use disorder, who 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 #Severe triple vessel disease s/p cardiac cath 09/23/24: LAD 90% proximal lesion, obtuse marginal 99% midsegment lesion, RCA 100% mid-distal occlusion. EF on cath 50% (Echo prior 65%). Patient denies chest pain or SOB. EKG on admission without ischemic changes. Troponins peaked at 0.691, now resolved. * Cardiology Dr. Stafford consulted ? AZAM negative for endocarditis * Patient will require CABG but not a candidate until MRSA bacteremia cleared and blood cultures negative. * Continue aspirin 81 mg daily, Plavix, atorvastatin 80 mg daily. * CABG to be planned outpatient once cleared. * NPO status maintained. * Hold heparin for AZAM * Continue telemetry, monitor for chest pain/SOB. #MRSA bacteremia Likely source: diabetic foot wound. Repeat blood cultures remain positive. * Continue IV vancomycin (vanc trough therapeutic). Zosyn discontinued ? not needed. * Ordered repeat blood culture today. * ID (Dr. Youssef) consulted, minimum vanc through 10/06 if cleared; longer course + AZAM if cultures remain positive. * ESR and CRP ordered and elevated #Diabetic foot infection Left foot s/p I&D on 09/20/24 for soft tissue infection of fifth metatarsal. Wound clean, dry, mild pain only with ambulation. * Wound care following. * Ordered MRI of foot to evaluate for osteomyelitis. Still pending * Continue local wound checks. #Possible epidural abscess/discitis Patient with persistent back pain, worse with movement, no focal neuro signs. Prior CT lumbar showed air density in thecal sac at L1?L2. * Ordered MRI lumbar spine to evaluate for discitis or epidural abscess. * Monitor neuro exam closely; maintain pain control with gabapentin as needed. #Transaminitis / Hyperbilirubinemia Likely related to alcohol use or mild dehydration. Br stable ~1.4?1.6, AST/ALT mild elevation. No abdominal pain. * Abdominal US negative for cholelithiasis, CBD normal, moderate hepatomegaly. * Daily CMP. * Network Operations Analyst alcohol cessation. #Type 2 diabetes mellitus, well controlled A1c 5.5 on this admission. On metformin 500 mg BID at baseline. * ACHS glucose checks. * SSI coverage. * Hypoglycemia protocol in place. #Alcohol use disorder No signs of withdrawal; CIWA off. * Thiamine, folic acid continued. * Counseling for cessation continues. #Possible early left base pneumonia Seen on CXR only, no clinical signs. Covered by current IV vanc. Afebrile, no cough/SOB. * No change in antibiotics. * Monitor. Health Maintenance: * Disposition: Med telemetry, MRSA bacteremia. * Feeding: Carb-consistent diet, NPO after midnight. * Thromboprophylaxis: Heparin * GI prophylaxis: Pantoprazole. * Code Status: DNR. ----- Plan discussed with attending physician Dr. Ryan Long MD PGY-1 Internal Medicine Patient seen and examined at bedside, no acute overnight events. I discussed and supervised with the international exchange coordinator physician who took care of this patient. I personally saw and examined the patient. I agree with most of the assessment and plan. Repeat blood cultures negative x 48 hours, continuing IV vancomycin. Patient received MRI for back, pending read. MRI of left foot not performed, due to rods in the leg. ESR demonstrated, CRP increased from 12 to 21. Plan of care discussed with attending Dr. Davis. Colin Teran MD PGY-2
[2024-09-26 16:00] VITALS: BP 106/66; PULSE 79; PULSE 86; RESP 23; TEMP 36.8; O2SAT 95
[2024-09-26] MEDS: HYDROmorphone INJ 2 MG/ML VIAL 1 MG IVP (17:23)
[2024-09-26 20:00] VITALS: BP 144/66; PULSE 79; PULSE 80; RESP 17; TEMP 37.1; O2SAT 91
[2024-09-26] MEDS: ATORVASTATIN CALCIUM 20 MG TABLET PO (20:15)
--- NOTE | 2024-09-26 22:36 | PC.NURSE ---
awaiting vanco trough level before dose tonight. follow up with lab.
--- NOTE | 2024-09-26 23:07 | PC.NURSE ---
called lab for vanco trough result not ready. per lab they still running qc on the machine and they will run test. drier belt conveyorCAREY Alonso made aware.
--- NOTE | 2024-09-26 23:21 | ESDS_ITS ---
Planned Discharge Date 09/26/24 DS: Providers Provider Date of admission: 09/19/24 20:44 Primary care physician: Lars Salazar MD Admitting Provider: Dawit Calderon MD Attending Provider on Admission: Long Davis MD Consults: 09/19/24 18:02 Consult to Cardiology Stat Comment: Elevated troponin Consulting Provider: Jean Paul Stafford 09/19/24 21:04 Referral OP Wound Healing Dept Stat Comment: Referral Wound Care Stat Comment: 09/19/24 21:05 Consult to General Surgery Stat Comment: Consulting Provider: Teri Garrison 09/22/24 10:54 Consult to Infectious Diseases Routine Comment: Consulting Provider: Gómez Youssef 09/23/24 18:04 Referral Physical Therapy Routine Comment: Physician Instructions: 09/26/24 20:44 Referral - Director Speech Stat Service Needed for Transfer: Neurosurgery Addl Comments:: Epidural abscess on MRI Attending Provider on DC: Thad Montana MD Discharging Provider: Thad Montana MD DS: Diagnosis Problem List Completed Was Problem List Reviewed/Reconciled?: Yes Hospital Course Hospital Course Hospital course: 79-year-old male with past medical history of diabetes, sciatica, remote history of valley fever presented to the ED on 09/19 with a foot infection. In the ED, patient was normotensive, tachycardic, mildly febrile temperature 99?F, saturating 95% on 6 L nasal cannula. Admitted pertinent findings included foot x-ray which showed soft tissue defect at the fifth metatarsal phalangeal joint, early left sided pneumonia, head CT was negative for any acute hemorrhage, midline shift or mass effect. Patient was given IV antibiotics and admitted for treatment of left lower extremity cellulitis and early left base pneumonia. General surgery was consulted who planned an incision and drainage procedure; moreover, cardiology was also consulted for elevated troponin with unremarkable EKG findings; recommendation was to obtain an echo and left heart catheterizatio n was also planned which later showed coronary artery disease (LAD 90% lesion in the proximal region, circumflex has a large obtuse marginal 99% lesion in the midsegment and RCA 100% occluded). During hospitalization, patient's blood cultures were positive for GPC as such infectious disease was consulted who provided recommendations regarding antibiotic stewardship. AZAM was obtained to rule out infective endocarditis which was negative. Patient complained of persistent back pain during hospitalization without any focal neurological signs; prior CT lumbar showed air density in the thecal sac at L1-L2. MRI was ordered which resulted on 09/26 which showed an epidural enhancement in the posterior L1-L2 level up to 7.5 mm in thickness suspicious for epidural abscess. Bladder scan was ordered which showed 700 cc of urine collection; Davies catheter was initiated along with frequent neurochecks. Transfer will be initiated so that the patient can receive appropriate treatment from neurosurger y. 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 #Coronary Artery Disease #MRSA bacteremia #Diabetic foot infection #Elevated LFTs / Hyperbilirubinemia #Type 2 diabetes mellitus, well controlled #Alcohol use disorder #Left base pneumonia Thad Montana DO PGY-2 Internal Medicine - [facility] Status at Discharge Overall status at discharge: patient is progressing back to baseline Time Spent with Patient Time attestation: Total time spent providing and/or coordinating discharge services: 45 minutes Time spent: Greater than 30 minutes Exam Vital Signs Temp Pulse Resp BP Pulse Ox O2 Del Method O2 Flow Rate 98.8 F 79 17 144/66 H 91 L Room Air 1 09/26/24 20:00 09/26/24 20:00 09/26/24 20:09/26/24 20:09/26/24 20:09/26/24 20:09/26/24 00:00 Narrative Exam General: Alert, uncomfortable due to back pain. Cardiac: S1 S2 normal, RRR. Respiratory: Lungs clear bilaterally. Neuro: A&O x3, no focal deficit, moving all extremities. Extremities: No new swelling, foot dressing intact, no obvious new drainage. Lines: IV sites clean. Discharge Plan Problem List Was Problem List Reviewed/Reconciled?: Yes Plan Patient Disposition: Xfer Other Service Needed for Transfer: Neurosurgery Disposition Comment: Epidural Abscess L1-L2 with bladder dysfunction Prescriptions/Referrals Prescriptions/Med Rec: No Action atorvastatin [Lipitor] 20 mg tablet 20 mg PO QDAY aspirin 81 mg tablet 81 mg PO QDAY metformin 500 mg tablet 500 mg PO BIDWMEAL gabapentin 300 mg capsule 300 mg PO Q8H PRN (Reason: back pain) omeprazole 20 mg capsule,delayed release(DR/EC) 20 mg PO QDAY Referrals: Martin,Lars Y, MD [Primary Care Provider] - Patient/Caregiver Discharge Instructions Print Language: Luxembourgish Stand Alone Forms: Elaine Award Info., Patient Portal Info Letter Quality Discharge Quality Measures VTE prophylaxis
--- NOTE | 2024-09-26 23:47 | PC.NURSE ---
VANCO TROUGH RESULT STILL NOT READY.
[2024-09-27] VITALS: BP 125/61; PULSE 61; PULSE 90; RESP 13; TEMP 37.1; O2SAT 94
[2024-09-27 00:19] LABS: Vancomycin,Trough 11.4 mcg/mL (5.0-10.0)
[2024-09-27] MEDS: VANCOMYCIN/NS 1 GM IVPB 200 ML IV (00:27)
--- NOTE | 2024-09-27 01:02 | PC.NURSE ---
called [facility] and spoke to Teresa. Images, progress notes, labs, image report, images, and face sheet faxed and sent. Teresa requested to speak to transferring physician, transfer to MD Montana
[2024-09-27 04:00] VITALS: BP 119/66; PULSE 80; PULSE 81; RESP 18; TEMP 37.2; O2SAT 95
--- NOTE | 2024-09-27 04:26 | PC.NURSE ---
ACCEPTING [facility] ED AND ACCEPTING DR. KIM. PT'S BROTHER ALVARO STEEL CONTACTED AND UPDATED WITH PLAN OF CARE, ALVARO CONSENTED FOR TRANSFER.
[2024-09-27 04:45] VITALS: BP 109/61; PULSE 89; RESP 17; TEMP 37.2; O2SAT 95
--- NOTE | 2024-09-27 05:04 | PC.NURSE ---
0504 PT TRANSFERRED TO [facility] BY AMBULANCE,REPORT GIVEN TO AMBULANCE PERSONNEL, ON GURNEY WITH BELONGINGS. PT AWAKE,ALERT TO SELF AND PLACE, DENIES PAIN.
--- NOTE | 2024-09-27 05:47 | PC.NURSE ---
RN CALLED [facility] ER TRIAGE FELIZ RN AND SBAR REPORT GIVEN,QUESTIONS ANSWERED.
--- NOTE | 2024-09-28 14:35 | PC.SS ---
Chart accessed to provide [facility] Rachele with disposition plan. Patient was expected at [facility].
--- NOTE | 2024-09-28 20:23 | PD.RESHP ---
Documentation for date of: 09/28/24 IN ERROR NOTE Review of Systems Review of Systems Systems Reviewed: All systems reviewed, normal except as documented Exam Vital Signs Temp Pulse Resp BP Pulse Ox O2 Del Method O2 Flow Rate 98.9 F 89 17 109/61 95 Room Air 1 09/27/24 04:45 09/27/24 04:45 09/27/24 04:45 09/27/24 04:45 09/27/24 04:45 09/27/24 04:45 09/26/24 00:00 Narrative Exam General: AOx3, no acute distress, able to speak full sentences HEENT: NC/AT, mucous membranes moist, bilateral sclera anicteric Cardiovascular: regular rate and rhythm, S1/S2 present, systolic murmur appreciated at left lower sternal border Pulmonary: clear to auscultation bilaterally, no rales/rhonchi/wheezes Abdominal: soft, non-tender, non-distended, no rebound/guarding, normal bowel sounds present Musculoskeletal: normal ROM, no peripheral edema Skin: warm and dry, intact, no rashes Results: Labs 09/26/24 07:14 09/26/24 07:14 Quality Measures Quality Measures VTE prophylaxis Advance care planning discussed with:: patient Medications Home Medications and Allergies Home Medications ?Medication ?Instructions ?Recorded ?Confirmed ?Type aspirin 81 mg tablet 81 mg PO QDAY 09/19/24 09/29/24 History atorvastatin 20 mg tablet (Lipitor) 20 mg PO QDAY 09/19/24 09/29/24 History gabapentin 300 mg capsule 300 mg PO Q8H PRN back pain 09/19/24 09/29/24 History metformin 500 mg tablet 500 mg PO BIDWMEAL 09/19/24 09/29/24 History omeprazole 20 mg capsule,delayed 20 mg PO QDAY 09/19/24 09/29/24 History release Allergies Allergy/AdvReac Type Severity Reaction Status Date / Time No Known Allergies Allergy Verified 09/19/24 14:41 Visit Medications Discontinued Medications Acetaminophen (Acetaminophen 500 Mg Tablet) 1,000 mg PO X1 ONE Stop: 09/19/24 14:54 Last Admin: 09/19/24 16:24 Dose: 1,000 mg Acetaminophen (Acetaminophen 325 Mg Tablet) 650 mg PO Q6H PRN PRN Reason: Fever >100.4 Stop: 10/19/24 20:44 Acetaminophen (Acetaminophen 325 Mg Tablet) 1,000 mg PO Q6H PRN PRN Reason: PAIN SCALE 1-3 (mild Stop: 10/19/24 20:44 Acetaminophen (Acetaminophen 325 Mg Tablet) 650 mg PO Q6H PRN PRN Reason: FEVER > 100.4 Stop: 10/19/24 20:44 Acetaminophen (Acetaminophen 500 Mg Tablet) 1,000 mg PO Q6H PRN PRN Reason: PAIN SCALE 1-3 (mild Stop: 10/19/24 20:44 Last Admin: 09/22/24 16:43 Dose: 1,000 mg Hydrocodone Bitart/Acetaminophen (Hydrocodone/Apap 5/325 Tablet) 1 tab PO X1 ONE Stop: 09/22/24 18:12 Last Admin: 09/22/24 19:28 Dose: Not Given Hydrocodone Bitart/Acetaminophen (Hydrocodone/Apap 7.5/325 Tablet) 1 tab PO Q6HR PRN PRN Reason: PAIN SCALE 4-10(Mod-Sev Stop: 09/28/24 17:39 Last Admin: 09/25/24 02:22 Dose: 1 tab Hydrocodone Bitart/Acetaminophen (Hydrocodone/Apap 7.5/325 Tablet) 1 tab PO Q6HR PRN PRN Reason: PAIN SCALE 4-6 (Moderate Stop: 09/28/24 17:39 Last Admin: 09/26/24 13:05 Dose: 1 tab Aspirin (Aspirin 325 Mg Tablet) 325 mg PO X1 ONE Stop: 09/19/24 18:03 Last Admin: 09/19/24 19:05 Dose: 325 mg Aspirin (Aspirin Ec 81 Mg Tabec) 81 mg PO QDAY [facility] Stop: 10/20/24 08:59 Last Admin: 09/26/24 08:33 Dose: 81 mg Atorvastatin Calcium (Atorvastatin Calcium 20 Mg Tablet) 20 mg PO HS [facility] Stop: 10/19/24 20:59 Last Admin: 09/26/24 20:15 Dose: 20 mg Benzocaine (Benzocaine 20% (Hurricaine) [place] 1 Dose) 0 dose TOP X1 ONE Stop: 09/25/24 08:01 Last Admin: 09/25/24 08:12 Dose: 1 dose Benzocaine (Benzocaine 20% (Hurricaine) [place] 1 Dose) 0 dose TOP X1 ONE Stop: 09/25/24 13:22 Last Admin: 09/25/24 13:21 Dose: 1 dose Calcium Carbonate (Calcium Carbonate 600 Mg Tablet) 600 mg PO BID [facility] Stop: 09/23/24 21:01 Last Admin: 09/23/24 21:19 Dose: 600 mg Clopidogrel Bisulfate (Clopidogrel Bisulfate 75 Mg Tablet) 75 mg PO QDAY [facility] Stop: 10/24/24 08:59 Last Admin: 09/26/24 08:33 Dose: 75 mg Clopidogrel Bisulfate (Clopidogrel Bisulfate 75 Mg Tablet) 75 mg PO X1 ONE Stop: 09/23/24 16:04 Last Admin: 09/23/24 16:26 Dose: 75 mg Dextrose (Dextrose 50%-Water Inj 50 Ml Syringe) 25 ml IV Q15MIN PRN PRN Reason: BG 50-70 responsive npo pt Stop: 10/19/24 21:02 Dextrose (Dextrose 50%-Water Inj 50 Ml Syringe) 50 ml IV Q15MIN PRN PRN Reason: BG <50 OR BG <70 & pt unresponsive Stop: 10/19/24 21:02 Docusate Sodium (Docusate Sod 100 Mg Capsule) 100 mg PO QDAY [facility]; Protocol Stop: 10/20/24 08:59 Last Admin: 09/26/24 08:33 Dose: 100 mg Doxycycline Hyclate (Doxycycline 100 Mg Tablet) 100 mg PO BID [facility] Stop: 09/26/24 20:59 Last Admin: 09/20/24 08:26 Dose: 100 mg Fentanyl Citrate (Fentanyl Cit Inj 50 Mcg/Ml Amp 2ml) 50 mcg IVP X1 ONE Stop: 09/25/24 08:01 Last Admin: 09/25/24 08:16 Dose: 50 mcg Fentanyl Citrate (Fentanyl Cit Inj 50 Mcg/Ml Amp 2ml) 50 mcg IVP Q5MIN PRN PRN Reason: PAIN SCALE 4-10(Mod-Sev Stop: 09/25/24 16:14 Folic Acid (Folic Acid 1 Mg Tablet) 1 mg PO BID [facility] Stop: 09/24/24 21:14 Last Admin: 09/24/24 20:42 Dose: 1 mg Gabapentin (Gabapentin 300 Mg Capsule) 300 mg PO TID [facility] Stop: 10/19/24 21:59 Last Admin: 09/21/24 05:31 Dose: 300 mg Gabapentin (Gabapentin 300 Mg Capsule) 300 mg PO Q8H PRN PRN Reason: back pain Stop: 10/21/24 13:45 Last Admin: 09/23/24 10:58 Dose: 300 mg Glucagon (Glucagon Inj 1 Mg Vial) 1 mg IM Q15MIN PRN PRN Reason: BG <70, and no IV access Heparin Sodium (Porcine) (Heparin Sod Inj 5000 Unit/Ml Vial) 5,000 unit SC Q8HR [facility] Stop: 10/03/24 21:59 Last Admin: 09/24/24 05:45 Dose: 5,000 unit Heparin Sodium (Porcine) (Heparin Sod Inj 5000 Unit/Ml Vial) 5,000 unit SC BID [facility] Stop: 10/10/24 20:59 Hydralazine HCl (Hydralazine Inj 20 Mg/Ml Vial) 5 mg IV Q20MIN PRN PRN Reason: SEE COMMENTS Stop: 09/25/24 16:14 Hydromorphone HCl (Hydromorphone Inj 2 Mg/Ml Vial) 0.5 mg IVP X1 ONE Stop: 09/24/24 14:59 Last Admin: 09/24/24 16:17 Dose: 0.5 mg Hydromorphone HCl (Hydromorphone Inj 2 Mg/Ml Vial) 0.5 mg IVP Q4HR PRN PRN Reason: PAIN SCALE 7-10 (Severe Stop: 09/30/24 11:11 Last Admin: 09/25/24 16:59 Dose: 0.5 mg Hydromorphone HCl (Hydromorphone Inj 2 Mg/Ml Vial) 1 mg IVP X1 PRN PRN Reason: Pain during MRI Screen Stop: 10/01/24 15:38 Last Admin: 09/26/24 17:23 Dose: 1 mg Sodium Chloride (Ns) 1,000 mls @ 999 mls/hr IV .Q1H1M ONE Stop: 09/19/24 15:54 Last Infusion: 09/19/24 17:10 Dose: Infused Vancomycin/Sodium Chloride (Vancomycin/Ns 1 Gm Ivpb) 200 mls @ 120 mls/hr IV X1 ONE Stop: 09/19/24 16:33 Last Infusion: 09/19/24 19:02 Dose: Infused Piperacillin/Tazobactam/Dextrose (Zosyn) 3.375 gm in 50 mls @ 100 mls/hr IV X1 ONE Stop: 09/19/24 15:23 Last Infusion: 09/19/24 16:54 Dose: Infused Sodium Chloride (Ns) 1,000 mls @ 100 mls/hr IV .Q10H [facility] Stop: 09/20/24 06:44 Last Admin: 09/19/24 21:00 Dose: 100 mls/hr Piperacillin/Tazobactam/Dextrose (Zosyn) 3.375 gm in 50 mls @ 12.5 mls/hr IV Q8HR [facility] Stop: 09/26/24 20:57 Last Admin: 09/23/24 05:10 Dose: 12.5 mls/hr Vancomycin/Sodium Chloride (Vancomycin/Ns 1 Gm Ivpb) 200 mls @ 120 mls/hr IV Q12H [facility]; Protocol Stop: 09/27/24 21:59 Last Infusion: 09/27/24 02:08 Dose: Infused Vancomycin HCl (Vancomycin/Water 1250 Mg Ivpb) 250 mls @ 120 mls/hr IV X1 ONE Stop: 09/20/24 13:19 Last Admin: 09/20/24 11:37 Dose: 120 mls/hr Sodium Chloride (Ns 0.45%) 500 mls @ 100 mls/hr IV .Q5H ONE Stop: 09/23/24 13:19 Last Admin: 09/23/24 17:53 Dose: Not Given Sodium Chloride (Ns) 500 mls @ 50 mls/hr IV .Q10H ONE Stop: 09/25/24 17:43 Last Admin: 09/25/24 07:58 Dose: Not Given Insulin Human Lispro (Insulin Lispro (Admelog) 1 Unit/0.01 Ml Unit) 0 unit SC AC [facility]; Protocol Stop: 10/20/24 07:29 Last Admin: 09/26/24 17:13 Dose: 2 unit Ketorolac Tromethamine (Ketorolac Inj 30 Mg/Ml Vial) 30 mg IVP X1 ONE Stop: 09/21/24 15:45 Last Admin: 09/21/24 16:28 Dose: 30 mg Ketorolac Tromethamine (Ketorolac Inj 30 Mg/Ml Vial) 30 mg IVP X1 ONE Stop: 09/22/24 16:54 Last Admin: 09/22/24 17:05 Dose: 30 mg Ketorolac Tromethamine (Ketorolac Inj 30 Mg/Ml Vial) 30 mg IVP X1 ONE Stop: 09/23/24 16:51 Last Admin: 09/23/24 16:55 Dose: 30 mg Lidocaine (Lidocaine 5% 1 Patch) 1 patch TOP UD PRN; Protocol PRN Reason: PAIN Stop: 10/20/24 18:55 Last Admin: 09/24/24 21:33 Dose: 1 patch Lorazepam (Lorazepam 2 Mg/Ml Vial) 0.5 mg IV Q2HR PRN PRN Reason: CIWA SCORE 7-13 Stop: 09/24/24 21:07 Lorazepam (Lorazepam 2 Mg/Ml Vial) 1 mg IV Q2HR PRN PRN Reason: CIWA SCORE 14-19 Stop: 09/24/24 21:07 Lorazepam (Lorazepam 2 Mg/Ml Vial) 2 mg IV Q2HR PRN PRN Reason: CIWA SCORE 20-25 Stop: 09/24/24 21:07 Lorazepam (Lorazepam 0.5 Mg Tablet) 0.5 mg PO Q4HR PRN PRN Reason: CIWA Score 2-6 Stop: 09/24/24 21:07 Midazolam HCl (Midazolam Inj 1 Mg/Ml Vial 2 Ml) 4 mg IVP X1 ONE Stop: 09/25/24 08:01 Last Admin: 09/25/24 08:18 Dose: 4 mg Morphine Sulfate (Morphine Sulf Inj 10 Mg/Ml Vial) 2 mg IVP X1 ONE Stop: 09/20/24 08:50 Last Admin: 09/20/24 10:12 Dose: 2 mg Ondansetron HCl (Ondansetron Inj 2 Mg/Ml Inj 2 Ml) 4 mg IVP Q6H PRN; Protocol PRN Reason: NAUSEA OR VOMITING Stop: 10/19/24 20:44 Oxycodone HCl (Oxycodone Hcl 5 Mg Ir Tab) 5 mg PO Q6HR ONE Stop: 09/22/24 18:18 Last Admin: 09/22/24 19:28 Dose: Not Given Oxycodone HCl (Oxycodone Hcl 5 Mg Ir Tab) 5 mg PO X1 ONE Stop: 09/22/24 18:18 Last Admin: 09/22/24 18:31 Dose: 5 mg Oxycodone HCl (Oxycodone Hcl 5 Mg Ir Tab) 5 mg PO Q6HR PRN PRN Reason: PAIN SCALE 4-10(Mod-Sev Stop: 09/27/24 18:39 Last Admin: 09/23/24 12:39 Dose: 5 mg Pantoprazole Sodium (Pantoprazole 40 Mg Tablet) 40 mg PO QDAY [facility] Stop: 10/20/24 08:59 Last Admin: 09/26/24 08:33 Dose: 40 mg Pharmacy Consult (Vancomycin Pharmacy To Dose 1 Each Each) 1 each IV QDAY PRN PRN Reason: PROTOCOL Stop: 10/20/24 11:09 Potassium Chloride (Potassium Chloride 20 Meq Tabcr) 40 meq PO X1 ONE Stop: 09/21/24 09:13 Last Admin: 09/21/24 09:24 Dose: 40 meq Potassium Chloride (Potassium Chloride 20 Meq Tabcr) 40 meq PO X1 ONE Stop: 09/22/24 07:20 Last Admin: 09/22/24 09:21 Dose: 40 meq Potassium Chloride (Potassium Chloride 20 Meq Tabcr) 40 meq PO X1 ONE Stop: 09/23/24 07:31 Last Admin: 09/23/24 16:46 Dose: 40 meq Potassium Chloride (Potassium Chloride 20 Meq Tabcr) 40 meq PO X1 ONE Stop: 09/23/24 16:46 Last Admin: 09/23/24 17:52 Dose: Not Given Potassium Chloride (Potassium Chloride 20 Meq Tabcr) 40 meq PO X1 ONE Stop: 09/26/24 08:22 Last Admin: 09/26/24 08:34 Dose: 40 meq Potassium Phos/Sodium Phos (Naph,[facility] 1 Packet (1.5 Gm)) 1 packet PO BID [facility] Stop: 10/21/24 09:14 Last Admin: 09/22/24 21:38 Dose: 1 packet Potassium Phos/Sodium Phos (Naph,[facility] Mbdb 1 Packet (1.5 Gm)) 1 packet PO X1 ONE Stop: 09/25/24 08:23 Last Admin: 09/25/24 19:38 Dose: Not Given Potassium Phos/Sodium Phos (Naph,Kph Mbdb 1 Packet (1.5 Gm)) 1 packet PO BID [facility] Stop: 10/26/24 08:59 Last Admin: 09/26/24 20:15 Dose: 1 packet Thiamine HCl (Thiamine 100 Mg Tablet) 100 mg PO BID [facility] Stop: 09/24/24 21:14 Last Admin: 09/24/24 20:42 Dose: 100 mg
== END 2024-09-27 05:04 | disposition skilled nursing facility (03) | DRG 637 ==
LOC: SERX 18:14 → SERHOLD 09-20 05:49 → S2NX 09-20 05:49
PROVIDERS: Internal Medicine; Internal Medicine Infectious Disease; Nurse Practitioner Family; Student in an Organized Health Care Education/Training Program; Admitting Provider Internal Medicine; Emergency Provider Emergency Medicine; PCP Family Medicine; Visit Provider Internal Medicine
DX: E11.628 Type 2 diabetes mellitus with other skin complications (principal); I21.4 Non-ST elevation (NSTEMI) myocardial infarction; J18.9 Pneumonia, unspecified organism; L02.416 Cutaneous abscess of left lower limb; R78.81 Bacteremia; L03.116 Cellulitis of left lower limb; G06.1 Intraspinal abscess and granuloma; I25.10 Atherosclerotic heart disease of native coronary artery without angina pectoris; B95.62 Methicillin resistant Staphylococcus aureus infection as the cause of diseases classified elsewhere; R79.89 Other specified abnormal findings of blood chemistry; E86.0 Dehydration; K76.0 Fatty (change of) liver, not elsewhere classified; E11.40 Type 2 diabetes mellitus with diabetic neuropathy, unspecified; F10.10 Alcohol abuse, uncomplicated; Z66 Do not resuscitate; Z79.84 Long term (current) use of oral hypoglycemic drugs; E78.5 Hyperlipidemia, unspecified; I10 Essential (primary) hypertension; M46.40 Discitis, unspecified, site unspecified; Z79.4 Long term (current) use of insulin; Z79.82 Long term (current) use of aspirin; Z79.899 Other long term (current) drug therapy; Z95.1 Presence of aortocoronary bypass graft
CPT/HCPCS: 36415; 70450; 71045; 72128; 72131; 72149; 73630; 76705; 80053; 80202; 81001; 83036; 83605; 83615; 83690; 83735; 83880; 84100; 84145; 84484; 85025; 85610; 85652; 85730; 86140; 86780; 86803; 87040; 87070; 87077; 87086; 87186; 87205; 87400; 87811; 93005; 93306; 93312; 96365; 96366; 96368; 96372; 97162; 99152; 99285; A4216; A9579; J0171; J0461; J0583; J1171; J1643; J1644; J1815; J1885; J2250; J2270; J2310; J2371; J2543; J2704; J3010; J3370; J3372; J3490; J7030; A9270; J2305

== ENCOUNTER 2024-09-28 19:06 | Inpatient (IN) | payer MEDICARE, SELFPAY ==
[2024-09-28 20:26] VITALS: BP 119/62; PULSE 75; RESP 18; TEMP 36.7; O2SAT 92
[2024-09-28 21:07] VITALS: BMI 22.0
[2024-09-28 22:47] LABS: Basophils # (Auto) 0.1 Thou/mm3 (0.0-0.2); Basophils % (Auto) 1 % (0-2.5); Eosinophils # (Auto) 0.5 Thou/mm3 (0.0-0.5); Eosinophils % (Auto) 4 % (0-10); Hematocrit 34.3 % (41.0-53.0); Hemoglobin 12.1 g/dL (13.5-16.0); Immature Granulocytes Auto 0.11 Thou/mm3 (0.00-0.00); Lymphocytes # (Auto) 1.1 Thou/mm3 (1.0-4.8); Lymphocytes % (Auto) 8 % (10-50); Mean Corpuscular HGB Conc 35.3 g/dl (31.0-37.0); Mean Corpuscular Hemoglobin 33.0 pg (25.0-35.0); Mean Corpuscular Volume 94 fL (80-100); Monocytes # (Auto) 0.8 Thou/mm3 (0.0-0.8); Monocytes % (Auto) 7 % (0-12); Neutrophils # (Auto) 10.3 Thou/mm3 (1.8-7.7); Neutrophils % (Auto) 80 % (37-80); Nucleated Red Blood Cell # 0.00 Thou/mm3 (0.00-0.00); Nucleated Red Blood Cell % 0 /100 WBC (0); Platelet Count 488 Thou/mm3 (140-440); RDW Standard Deviation 41.8 fL (35.1-43.9); Red Blood Count 3.67 Miln/mm3 (4.50-5.90); White Blood Count 12.9 Thou/mm3 (3.8-10.6)
[2024-09-28 23:31] LABS: Alanine Aminotransferase 73 U/L (10-49); Albumin, Serum 3.4 gm/dL (3.4-4.8); Albumin/Globulin Ratio 1.3 (1.2-2.2); Alkaline Phosphatase 1007 U/L (46-116); Anion Gap 8 (7-16); Aspartate Amino Transferase 100 U/L (0-34); BUN/Creatinine Ratio 13 Ratio (12-20); Bilirubin,Total 2.8 mg/dL (0.3-1.2); Blood Urea Nitrogen 10 mg/dL (9-23); Calcium 8.4 mg/dL (8.3-10.6); Calcium (Corrected) 8.9 mg/dL (8.5-10.1); Carbon Dioxide 24.8 mMol/L (20.0-31.0); Chloride 105 mMol/L (98-107); Creatinine (Component) 0.8 mg/dL (0.6-1.3); Estimated Creatinine Clearance 81.6 mL/min (>60); Globulin 2.6 gm/dL (2.3-3.5); Glucose 172 mg/dL (74-106); Magnesium 2.2 mg/dL (1.6-2.6); Osmolality,Calculated 278 (275-295); Phosphorous 2.4 mg/dL (2.4-5.1); Potassium 3.8 mMol/L (3.4-5.1); Sodium 138 mMol/L (136-145); Total Protein 6.0 gm/dL (5.7-8.2); eGFR > 60 See Note
[2024-09-29] VITALS (7 sets, daily range): BP systolic 123–143; BP diastolic 65–80; PULSE 68–90; RESP 17–20; TEMP 36.1–37.1; O2SAT 91–95
[2024-09-29] MEDS: MORPHINE SULF INJ 10 MG/ML VIAL 2 MG IVP ×2 (00:37→09:33)
[2024-09-29] MEDS: VANCOMYCIN/NS 1 GM IVPB 200 ML IV ×2 (01:56→14:02)
--- NOTE | 2024-09-29 04:29 | PD.RESHP ---
Documentation for date of: 09/28/24 HPI History of Present Illness History of present illness: Thiago Barrett is a 79-year-old male with a past medical history of triple vessel disease pending CABG, type 2 diabetes mellitus, sciatica, and remote history of valley fever who presented to the ED on 09/19 with a foot infection and admitted for the same. He was started on IV antibiotics and general surgery was consulted and performed I&D of left lower extremity. Additionally, cardiology was consulted for elevated troponins with unremarkable EKG findings and recommended to obtain an echo and left heart catheterization, which eventually showed significant coronary artery disease (90% occlusion proximal segment of LAD, 99% lesion of midsegment of obtuse marginal, and 100% occlusion of RCA). During hospitalization, blood cultures cacme back positive for GPC and so infectious disease was also consulted and provided recommendations regarding antibiotic stewardship. AZAM was obtained to rule out infective endocarditis and was negative. Patient endorsed persistent back pain during hospitalization without any focal neurological signs and prior CT lumbar showed air density in thecal sac at L1-L2. MRI was ordered and showed an epidural enhancement in the posterior L1-L2 level up to 7.5 mm in thickness suspicious for epidural abscess for which patient was eventually transferred to [facility]. There he also underwent repeat MRI thoracic and lumbar spine and results were reviewed with NSS team and no evidence of epidural abscess and so no neurosurgical intervention was required at that time. MRI lumbar spine did show multilevel lumbar stenosis but no signs of cord compression or cord signal abnormalities. Per infectious disease, recommended to continue IV antibiotics for 6 to 8 weeks and may need PICC line placement if blood cultures remain negative. PMHx: triple vessel disease pending CABG, type 2 diabetes mellitus, sciatica, and remote history of valley fever PSHx: hernia repair, prostate surgery SHx: Drinks 1 shot and 1/2+ a few beers every day, denies cigarette use, denies illicit substances including THC Allergies: NKDA Review of Systems Review of Systems Systems Reviewed: All systems reviewed, normal except as documented Exam Vital Signs Temp Pulse Resp BP Pulse Ox O2 Del Method 97.0 F 77 17 123/66 95 Room Air 09/29/24 00:00 09/29/24 00:00 09/29/24 00:00 09/29/24 00:00 09/29/24 00:00 09/29/24 00:00 Narrative Exam General: AOx3, no acute distress, able to speak full sentences HEENT: NC/AT, mucous membranes moist, bilateral sclera anicteric Cardiovascular: regular rate and rhythm, S1/S2 present, systolic murmur appreciated at left lower sternal border Pulmonary: clear to auscultation bilaterally, no rales/rhonchi/wheezes Abdominal: soft, non-tender, non-distended, no rebound/guarding, normal bowel sounds present Musculoskeletal: normal ROM, no peripheral edema Skin: warm and dry, intact, no rashes Results: Labs 09/28/24 22:20 09/28/24 22:20 Labs: Short CBC 09/28/24 Range/Units 22:20 WBC 12.9 H D (3.8-10.6) Thou/mm3 Hgb 12.1 L (13.5-16.0) g/dL Hct 34.3 L (41.0-53.0) % Plt Count 488 H (140-440) Thou/mm3 BMP 09/28/24 22:20 Sodium 138 Potassium 3.8 D Chloride 105 Carbon Dioxide 24.8 BUN 10 Creatinine 0.8 Glucose 172 H Calcium 8.4 Liver Function 09/28/24 Range/Units 22:20 Total Bilirubin 2.8 H D (0.3-1.2) mg/dL AST 100 H (0-34) U/L ALT 73 H (10-49) U/L Alkaline Phosphatase 1007 H D (46-116) U/L Albumin 3.4 D (3.4-4.8) gm/dL Quality Measures Quality Measures VTE prophylaxis Advance care planning discussed with:: patient Medications Home Medications and Allergies Home Medications ?Medication ?Instructions ?Recorded ?Confirmed ?Type aspirin 81 mg tablet 81 mg PO QDAY 09/19/24 09/29/24 History atorvastatin 20 mg tablet (Lipitor) 20 mg PO QDAY 09/19/24 09/29/24 History gabapentin 300 mg capsule 300 mg PO Q8H PRN back pain 09/19/24 09/29/24 History metformin 500 mg tablet 500 mg PO BIDWMEAL 09/19/24 09/29/24 History omeprazole 20 mg capsule,delayed 20 mg PO QDAY 09/19/24 09/29/24 History release Allergies Allergy/AdvReac Type Severity Reaction Status Date / Time No Known Allergies Allergy Verified 09/19/24 14:41 Visit Medications Acetaminophen (Acetaminophen 325 Mg Tablet) 650 mg PO Q6H PRN PRN Reason: MILD PAIN OR FEVER > 100.4 Stop: 10/28/24 22:03 Hydrocodone Bitart/Acetaminophen (Hydrocodone/Apap 5/325 Tablet) 1 tab PO Q6HR PRN PRN Reason: PAIN SCALE 4-6 (Moderate Stop: 10/03/24 22:03 Aspirin (Aspirin Ec 81 Mg Tabec) 81 mg PO QDAY [facility] Stop: 10/29/24 08:59 Atorvastatin Calcium (Atorvastatin Calcium 20 Mg Tablet) 80 mg PO HS [facility] Stop: 10/29/24 20:59 Bisacodyl (Bisacodyl 5 Mg Tabec) 10 mg PO QDAY PRN; Protocol PRN Reason: CONSTIPATION Stop: 10/28/24 22:03 Clopidogrel Bisulfate (Clopidogrel Bisulfate 75 Mg Tablet) 75 mg PO QDAY [facility] Stop: 10/29/24 08:59 Dextrose (Dextrose 50%-Water Inj 50 Ml Syringe) 25 ml IV Q15MIN PRN PRN Reason: BG 50-70 responsive npo pt Stop: 10/28/24 22:03 Dextrose (Dextrose 50%-Water Inj 50 Ml Syringe) 50 ml IV Q15MIN PRN PRN Reason: BG <50 OR BG <70 & pt unresponsive Stop: 10/28/24 22:03 Gabapentin (Gabapentin 300 Mg Capsule) 300 mg PO TID [facility] Stop: 10/29/24 05:59 Glucagon (Glucagon Inj 1 Mg Vial) 1 mg IM Q15MIN PRN PRN Reason: BG <70, and no IV access Insulin Human Lispro (Insulin Lispro (Admelog) 1 Unit/0.01 Ml Unit) 0 unit SC [facility]; Protocol Stop: 10/29/24 07:29 Morphine Sulfate (Morphine Sulf Inj 10 Mg/Ml Vial) 2 mg IVP Q6HR PRN PRN Reason: PAIN SCALE 7-10 (Severe Stop: 10/03/24 22:03 Last Admin: 09/29/24 00:37 Dose: 2 mg Pharmacy Consult (Vancomycin Pharmacy To Dose 1 Each Each) 1 each IV QDAY [facility] Stop: 10/29/24 08:59 Discontinued Medications Acetaminophen (Acetaminophen 325 Mg Tablet) 650 mg PO Q6H PRN PRN Reason: PAIN OR FEVER > 100.4 Stop: 10/28/24 22:03 Vancomycin/Sodium Chloride (Vancomycin/Ns 1 Gm Ivpb) 200 mls @ 133.333 mls/hr IV X1 ONE Stop: 09/29/24 00:59 Last Admin: 09/29/24 01:56 Dose: 133.333 mls/hr Assessment & Plan Plan Thiago Barrett is a 79-year-old male with a past medical history of triple vessel disease pending CABG, type 2 diabetes mellitus, sciatica, and remote history of valley fever who is coming back from [facility] in [place] after evaluation of epidural abscess. #MRSA bacteremia #Diabetic foot wound s/p I&D #Epidural abscess ruled out at [facility] Originally presented for diabetic foot wound and underwent I&D from general surgery which may have been the source. Previous concern for epidural abscess but was ruled out at [facility]. Underwent AZAM on 09/25 and no signs of valvular vegetations, lesions, or any other abnormalities noted. Per ID at [facility], recommended to continue IV antibiotics for 6 to 8 weeks. ? Infectious disease consulted, appreciate recommendations ? Vancomycin (was on vancomycin at [facility]) ? Follow-up repeat blood cultures ? Possible PICC line placement ? Wound care ? Physical therapy ? Every 4 hour neurochecks #Severe triple-vessel disease Underwent cardiac cath on 09/23 and found to have 90% proximal lesion of LAD, 99% lesion in mid segment of obtuse marginal, # occlusion of mid distal RCA with EF of 50%. ? Will require CABG but not a candidate until MRSA bacteremia cleared ? Aspirin 81 mg daily, Plavix 75 mg daily, atorvastatin 80 mg daily #Type 2 diabetes mellitus A1c 5.5% on previous admission. On metformin 500 mg twice daily. ? SSI, ACHS glucose checks ? Hypoglycemic protocol in place #Chronic pain ? Gabapentin 300 mg 3 times daily ? [place] and morphine #Transaminitis #Hyperbilirubinemia #Elevated ALP ? Follow-up hepatitis panel ? Follow-up abdominal ultrasound Hospital management: Disposition: IV antibiotics, repeat blood cultures, ID consulted Diet: cardiac Lines: PIV DVT prophylaxis: SCDs, plavix/ASA Davies: placed CODE STATUS: DNR ----- Plan discussed with attending physician Dr. Temitope Chavez MD PGY-2 Internal Medicine Attending Provider Attestation/Addendum Face to face evaluation was performed by me. I have personally seen and examined the patient. I discussed the assessment and plan with the entire medicine team. I reviewed available medical records, imaging studies, laboratory results. I agree with the above subjective data, objective findings, assessment and plan except as corrected by me or noted below MRSA bacteremia epidural abscess T2DM Came back from [facility]- was transferred there from [facility]. Continue iv vanco, repeat blood cultures, ID consult More than > 30 minutes spent on the encounter
--- NOTE | 2024-09-29 04:35 | XR_ITS ---
Examination: Abdomen sonogram, complete Date and time of exam: September 29, 2024, 0853 hrs. Indications: Elevated liver function tests today. Technique: Multiple real-time grayscale transabdominal sonographic images of the abdomen have been obtained. Findings: Gallbladder sludge, gallbladder wall 0.5 cm Common bile duct 0.5 cm no common bile duct stones. Pancreatic head 2.4 cm Aorta not enlarged. Liver 16.5 cm mild ascites, irregular liver contour Normal hepatopedal portal venous flow. Patent IVC. Right kidney 11.5 cm renal cortex 1.8 cm Left kidney 11.6 cm renal cortex 1.9 cm Mild renal parenchymal scar formation No splenomegaly Impression: Suspect primary hepatocellular disease Mild ascites Gallbladder sludge, no gallstones Gallbladder wall thickening 0.46 cm which may be secondary to the ascites, clinical correlation advised, consider HIDA scan follow-up
[2024-09-29] MEDS: GABAPENTIN 300 MG CAPSULE PO ×3 (05:07→22:05)
[2024-09-29] MEDS: HYDROcodone/APAP 5/325 TABLET 1 TAB PO ×2 (05:07→14:48)
[2024-09-29 05:49] LABS: Basophils # (Auto) 0.1 Thou/mm3 (0.0-0.2); Basophils % (Auto) 1 % (0-2.5); Eosinophils # (Auto) 0.4 Thou/mm3 (0.0-0.5); Eosinophils % (Auto) 3 % (0-10); Hematocrit 32.0 % (41.0-53.0); Hemoglobin 11.3 g/dL (13.5-16.0); Immature Granulocytes Auto 0.11 Thou/mm3 (0.00-0.00); Lymphocytes # (Auto) 1.3 Thou/mm3 (1.0-4.8); Lymphocytes % (Auto) 10 % (10-50); Mean Corpuscular HGB Conc 35.3 g/dl (31.0-37.0); Mean Corpuscular Hemoglobin 33.3 pg (25.0-35.0); Mean Corpuscular Volume 94 fL (80-100); Monocytes # (Auto) 0.8 Thou/mm3 (0.0-0.8); Monocytes % (Auto) 6 % (0-12); Neutrophils # (Auto) 9.9 Thou/mm3 (1.8-7.7); Neutrophils % (Auto) 78 % (37-80); Nucleated Red Blood Cell # 0.00 Thou/mm3 (0.00-0.00); Nucleated Red Blood Cell % 0 /100 WBC (0); Platelet Count 473 Thou/mm3 (140-440); RDW Standard Deviation 42.2 fL (35.1-43.9); Red Blood Count 3.39 Miln/mm3 (4.50-5.90); White Blood Count 12.6 Thou/mm3 (3.8-10.6)
[2024-09-29 06:21] LABS: Alanine Aminotransferase 64 U/L (10-49); Albumin, Serum 3.2 gm/dL (3.4-4.8); Albumin/Globulin Ratio 1.3 (1.2-2.2); Alkaline Phosphatase 908 U/L (46-116); Anion Gap 11 (7-16); Aspartate Amino Transferase 64 U/L (0-34); BUN/Creatinine Ratio 11 Ratio (12-20); Bilirubin,Total 1.7 mg/dL (0.3-1.2); Blood Urea Nitrogen 8 mg/dL (9-23); Calcium 8.0 mg/dL (8.3-10.6); Calcium (Corrected) 8.6 mg/dL (8.5-10.1); Carbon Dioxide 24.6 mMol/L (20.0-31.0); Chloride 104 mMol/L (98-107); Creatinine (Component) 0.7 mg/dL (0.6-1.3); Estimated Creatinine Clearance 93.3 mL/min (>60); Globulin 2.5 gm/dL (2.3-3.5); Glucose 150 mg/dL (74-106); Magnesium 2.2 mg/dL (1.6-2.6); Osmolality,Calculated 280 (275-295); Phosphorous 2.2 mg/dL (2.4-5.1); Potassium 3.5 mMol/L (3.4-5.1); Sodium 140 mMol/L (136-145); Total Protein 5.7 gm/dL (5.7-8.2); eGFR > 60 See Note
--- NOTE | 2024-09-29 07:07 | PC.NURSE ---
pharmacy will call to let RN know about the time they want vanco trough.
[2024-09-29] MEDS: CLOPIDOGREL BISULFATE 75 MG TABLET PO (09:08)
[2024-09-29] MEDS: CALCIUM CARBONATE 600 MG TABLET PO (09:08)
[2024-09-29] MEDS: ASPIRIN EC 81 MG TABEC PO (09:08)
[2024-09-29] MEDS: POLYETHYLENE GLYCOL 17 GM PACKET PO (10:59)
[2024-09-29] MEDS: PANTOPRAZOLE 40 MG TABLET PO (10:59)
[2024-09-29] MEDS: NAPH,KPH MBDB 1 PACKET (1.5 GM) PO (10:59)
[2024-09-29] MEDS: INSULIN LISPRO (AdmeLOG) 1 UNIT/0.01 ML UNIT SC (11:52)
--- NOTE | 2024-09-29 17:19 | ESPR_ITS ---
Documentation for date of: 09/29/24 Subjective Subjective Interval history: Seen at bedside this morning. Reports persistent neck and back pain despite current pain regimen. Denies fevers, chills, headaches, vision changes, weakness, numbness, bowel/bladder dysfunction, or trouble walking. Denies worsening foot wound pain or drainage. Endorses brief episodes of chest pain described as mild pressure lasting seconds, ongoing for weeks, with another episode this morning. Appetite otherwise fair. Labs: WBC 12.6, Hgb 11.3, Plts 473 Na 132, Ca 8.0, Phos 2.2 AST/ALT ~64, ALP high 1000-->900 Hepatitis panel pending Blood culture pending Imaging: AZAM negative for vegetations/endocarditis MRI at [facility]: No epidural abscess, multilevel lumbar stenosis only Abdominal ultrasound: Mild ascites, irregular liver contour, GB sludge, no CBD stones, normal portal flow Exam Vital Signs Temp Pulse Resp BP Pulse Ox O2 Del Method 98.7 F 74 17 134/75 H 94 L Room Air 09/29/24 16:00 09/29/24 16:00 09/29/24 16:00 09/29/24 16:09/29/24 16:09/29/24 16:00 Narrative Exam General: Alert, eating, no acute distress. HEENT: Atraumatic, moist mucous membranes. Cardiac: Normal S1 S2, regular rate and rhythm. Respiratory: Clear bilaterally. Abdomen: Soft, non-tender, non-distended. Extremities: Warm, foot wound clean and dry, no new drainage. Neuro: Alert and oriented x3, no focal deficits. Objective Labs 09/29/24 04:47 09/29/24 04:47 Labs: Laboratory Results - last 24 hr 09/28/24 09/29/24 22:20 04:47 WBC 12.9 H D 12.6 H RBC 3.67 L 3.39 L Hgb 12.1 L 11.3 L Hct 34.3 L 32.0 L MCV 94 94 MCH 33.0 33.3 MCHC 35.3 35.3 RDW Std Deviation 41.8 42.2 Plt Count 488 H 473 H Neut % (Auto) 80 78 Lymph % (Auto) 8 L 10 [place] % (Auto) 7 6 Eos % (Auto) 4 3 Baso % (Auto) 1 1 Neut # (Auto) 10.3 H 9.9 H Lymph # (Auto) 1.1 1.3 [place] # (Auto) 0.8 0.8 Eos # (Auto) 0.5 0.4 Baso # (Auto) 0.1 0.1 Immature Gran # (Auto) 0.11 H 0.11 H Absolute Nucleated RBC 0.00 0.00 Immature Gran % 1 H 1 H Nucleated RBC % 0 0 Sodium 138 140 Potassium 3.8 D 3.5 Chloride 105 104 Carbon Dioxide 24.8 24.6 Anion Gap 8 11 BUN 10 8 L Creatinine 0.8 0.7 Estim Creat Clear Calc 81.6 93.3 eGFR > 60 > 60 BUN/Creatinine Ratio 13 11 L Glucose 172 H 150 H Calculated Osmolality 278 280 Calcium 8.4 8.0 L Corrected Calcium 8.9 8.6 Phosphorus 2.4 2.2 L Magnesium 2.2 2.2 Total Bilirubin 2.8 H D 1.7 H D AST 100 H 64 H ALT 73 H 64 H Alkaline Phosphatase 1007 H D 908 H D Total Protein 6.0 5.7 Albumin 3.4 D 3.2 L Globulin 2.6 2.5 Albumin/Globulin Ratio 1.3 1.3 Quality Measures Quality Measures VTE prophylaxis Advance care planning discussed with:: patient Assessment & Plan Assessment Current Active Medications: Generic Name Dose Route Start Last Admin Trade Name Freq PRN Reason Stop Dose Admin Acetaminophen 650 mg 09/28/24 23:24 Acetaminophen 325 Mg Tablet PO 10/28/24 22:03 Q6H PRN MILD PAIN OR FEVER > 100.4 Protocol Hydrocodone Bitart/Acetaminophen 1 tab 09/28/24 22:04 09/29/24 14:48 Hydrocodone/Apap 5/325 Tablet PO 10/03/24 22:03 1 tab Q6HR PRN Administration PAIN SCALE 4-6 (Moderate Aspirin 81 mg 09/29/24 09:00 09/29/24 09:08 Aspirin Ec 81 Mg Tabec PO 10/29/24 08:59 81 mg QDAY SHANNAN Administration Atorvastatin Calcium 80 mg 09/29/24 21:00 Atorvastatin Calcium 20 Mg Tablet PO 10/29/24 20:59 HS SHANNAN Bisacodyl 10 mg 09/28/24 22:04 Bisacodyl 5 Mg Tabec PO 10/28/24 22:03 QDAY PRN CONSTIPATION Protocol Calcium Carbonate 600 mg 09/29/24 09:00 09/29/24 09:08 Calcium Carbonate 600 Mg Tablet PO 10/29/24 08:59 600 mg QDAY SHANNAN Administration Clopidogrel Bisulfate 75 mg 09/29/24 09:00 09/29/24 09:08 Clopidogrel Bisulfate 75 Mg Tablet PO 10/29/24 08:59 75 mg QDAY SHANNAN Administration Dextrose 25 ml 09/28/24 22:04 Dextrose 50%-Water Inj 50 Ml Syringe IV 10/28/24 22:03 Q15MIN PRN BG 50-70 responsive npo pt Dextrose 50 ml 09/28/24 22:04 Dextrose 50%-Water Inj 50 Ml Syringe IV 10/28/24 22:03 Q15MIN PRN BG <50 OR BG <70 & pt unresponsive Gabapentin 300 mg 09/29/24 06:00 09/29/24 14:01 Gabapentin 300 Mg Capsule PO 10/29/24 05:59 300 mg TID SHANNAN Administration Glucagon 1 mg 09/28/24 22:04 Glucagon Inj 1 Mg Vial IM Q15MIN PRN BG <70, and no IV access Vancomycin/Sodium Chloride 200 mls @ 200 mls/hr 09/29/24 14:00 09/29/24 14:02 Vancomycin/Ns 1 Gm Ivpb IV 10/06/24 13:59 200 mls/hr Q12H SHANNAN Administration Insulin Human Lispro 0 unit 09/29/24 07:30 09/29/24 16:38 Insulin Lispro (Admelog) 1 Unit/0.01 Ml Unit SC 10/29/24 07:29 Not Given AC [facility] Protocol Morphine Sulfate 2 mg 09/28/24 22:04 09/29/24 09:33 Morphine Sulf Inj 10 Mg/Ml Vial IVP 10/03/24 22:03 2 mg Q6HR PRN Administration PAIN SCALE 7-10 (Severe Nitroglycerin 0.4 mg 09/29/24 11:09 Nitroglycerin 0.4 Mg Subl Btl #25 SL Q5MIN PRN CHEST PAIN Ondansetron HCl 4 mg 09/29/24 09:48 Ondansetron Inj 2 Mg/Ml Inj 2 Ml IVP 10/29/24 09:47 Q6H PRN NAUSEA OR VOMITING Protocol Pantoprazole Sodium 40 mg 09/29/24 10:00 09/29/24 10:59 Pantoprazole 40 Mg Tablet PO 10/29/24 09:59 40 mg QDAY SHANNAN Administration Pharmacy Consult 1 each 09/29/24 10:50 Vancomycin Pharmacy To Dose 1 Each Each IV 10/29/24 10:49 QDAY PRN CONSULT Polyethylene Glycol 17 gm 09/29/24 10:00 09/29/24 10:59 Polyethylene Glycol 17 Gm Packet PO 10/29/24 09:59 17 gm QDAY SHANNAN Administration Plan 79-year-old male with PMH of MRSA bacteremia 2/2 diabetic foot wound, severe triple vessel CAD pending CABG, epidural abscess ruled out, mild chronic liver disease, persistent neck/back pain, and brief intermittent chest pain. #MRSA bacteremia Likely 2/2 diabetic foot wound, on IV vanc pending . Plan: * On IV vancomycin, ID recommends 6?8 weeks * Awaiting current blood cultures * Plan for PICC line placement once cultures negative #Diabetic foot wound s/p I&D * Dressing clean, dry, no new drainage Plan: * Continue wound care #Epidural abscess ruled out * MRI negative, multilevel stenosis only * Persistent neck/back pain Plan: * continue gabapentin, [place]/morphine PRN. * Neuro checks q4h, no new deficits #Severe triple vessel disease * LAD 90%, OM 99%, RCA 100%, EF 50% * AZAM negative for endocarditis * CABG deferred until MRSA bacteremia cleared Plan: * On aspirin 81mg, Plavix 75mg, atorvastatin 80mg daily * Reports brief mild chest pain --> nitroglycerin PRN added for episodes * Monitor EKG/troponins if worsening #Type 2 diabetes mellitus * A1c 5.5% * On metformin at baseline Plan: * SSI, ACHS glucose checks * Hypoglycemia protocol #Chronic pain * Persistent neck/back pain despite current regimen --> monitor, adjust if uncontrolled Plan: * Gabapentin 300 TID, [place]/morphine PRN #Transaminitis / Elevated ALP * Liver ultrasound: Mild ascites, irregular contour--> likely chronic liver disease * Gallbladder sludge, no stones or obstruction --> HIDA scan if indicated Plan: * Hepatitis panel pending * Monitor CMP daily #Electrolytes * Phos 2.2, Neutra-Phos given * Ca 8.0, calcium carbonate given * Repeat daily labs, replete as needed Health Maintenance: * Disposition: Med telemetry, IV vanc * Feeding: Cardiac diet * DVT prophylaxis: SCDs, aspirin/Plavix * Lines: PIV, PICC planned when cleared * CODE STATUS: DNR ----- Plan discussed with attending physician Dr. Jeramy Long MD PGY-1 Internal Medicine Attending Provider Attestation/Addendum I, Deyanira Deshpande DO, attest that I was physically present for the fair portions of the service and evaluated the patient with the resident and I reviewed and discussed the case with the resident and agree with the resident's findings and plans of care as documented above Patient is a 79-year-old male who has been transferred from [facility] after workup of possible epidural abscess that has since been ruled out after neurosurgical evaluation. Patient was only found to have multi lumbar stenosis. A AZAM had been previously done and vegetations were ruled out. Blood cultures have been negative since 09/24/24. ID consulted will follow-up with antibiotic recommendations and continue with vancomycin at this time.
[2024-09-29] MEDS: ATORVASTATIN CALCIUM 20 MG TABLET 80 MG PO (22:04)
[2024-09-29 22:14] LABS: Hepatitis A Antibody IgM Non Reactive (Non React); Hepatitis B Core Antibody IgM Non Reactive (Non React); Hepatitis B Surface Antigen Non Reactive (Non React); Hepatitis C Antibody Non Reactive (Non React)
[2024-09-30] VITALS (13 sets, daily range): BP systolic 100–149; BP diastolic 60–86; PULSE 68–89; RESP 15–20; TEMP 36.2–36.9; O2SAT 92–97
--- NOTE | 2024-09-30 | XR_ITS ---
Examination: Ultrasound-guided needle placement right brachial vein. Dual-lumen central line placement (PICC line). Fluoroscopy AP chest, portable, single view Exam date and time:September 30, 2024 1335 hours INDICATIONS: Need for long-term intravenous antibiotic therapy for spinal epidural abscess A timeout was completed verifying correct patient, procedure, site, positioning Informed consent provided Technique: The patient's site was prepped and draped in sterile fashion. Maximum Sterile Barrier Technique used including cap, mask, sterile gown, sterile gloves, and sterile full body drape. If ultrasound technique used: sterile gel and sterile probe covers. Hand Hygiene performed using proper scrub, soap and water, or alcohol-based hand rub. Ultrasound site right portable apparatus utilized to confirm patency of the right brachial vein Utilizing ultrasonographic guidance successful 21-gauge needle puncture into the right brachial vein Ultrasound images recorded and stored. 5 cc 1% lidocaine administered for local anesthetic. Successful micropuncture with a 21-gauge needle is performed. 0.18 wire guide is then introduced into the SVC under fluoroscopic guidance. Dual-lumen catheter dilator is then introduced, followed by the catheter in the SVC and proper position under fluoroscopic guidance. Successful aspiration of blood and flushing with heparinized saline is then performed in the 2 venous limbs. The catheter sutured in place. Findings: Under fluoroscopy, the tip of the catheter is in good position in the vena cava. Portable chest x-ray, post line placement is ordered. Estimated blood loss 3 cc The patient tolerated the procedure well and was in stable and satisfactory condition at completion of the procedure Impression: Successful ultrasound-guided needle placement right brachial vein Successful placement of dual lumen central line, percutaneous Fluoroscopy 0.1 minute radiation dose 0.85 milligray. AP chest completion procedure demonstrates satisfactory position central line. May use central line.
[2024-09-30] MEDS: VANCOMYCIN/NS 1 GM IVPB 200 ML IV ×2 (03:10→22:16)
[2024-09-30] MEDS: HYDROcodone/APAP 5/325 TABLET 1 TAB PO (05:25)
[2024-09-30] MEDS: GABAPENTIN 300 MG CAPSULE PO ×3 (05:25→22:13)
[2024-09-30] MEDS: INSULIN LISPRO (AdmeLOG) 1 UNIT/0.01 ML UNIT SC ×3 (07:42→17:47)
[2024-09-30] MEDS: POLYETHYLENE GLYCOL 17 GM PACKET PO (08:40)
[2024-09-30] MEDS: CALCIUM CARBONATE 600 MG TABLET PO (08:41)
[2024-09-30] MEDS: PANTOPRAZOLE 40 MG TABLET PO (08:41)
[2024-09-30] MEDS: CLOPIDOGREL BISULFATE 75 MG TABLET PO (08:41)
[2024-09-30] MEDS: ASPIRIN EC 81 MG TABEC PO (08:41)
--- NOTE | 2024-09-30 09:06 | ESPR_ITS ---
Subjective Subjective Interval history: data reviewed at [facility] and no epidural abscess noted by nsurg there Exam Vital Signs Temp Pulse Resp BP Pulse Ox O2 Del Method 97.8 F 74 18 139/70 H 96 Room Air 09/30/24 07:50 09/30/24 07:50 09/30/24 07:50 09/30/24 07:50 09/30/24 07:50 09/30/24 07:50 Narrative Exam sluggish pt sleepyc/o back pain Objective - Internal Medicine Labs 09/29/24 04:47 09/29/24 04:47 Labs: Laboratory Results - last 24 hr 09/29/24 00:00 Hepatitis A IgM Ab Non Reactive Hep Bs Antigen Non Reactive Hep B Core IgM Ab Non Reactive Hepatitis C Antibody Non Reactive Assessment & Plan A&P Narrative bacteremia, mrsa 09/19, 09/20, 09/21, then 03/28 09/23 imaging of spine noted hld dm II pvd, CAD, triple vessele disease but no cabg yet probaably best to treat with vanco thru 11/16 with weekly cbc, renal panel, esr and line removal at end of rx. no need to f/u with ID as outpt. will see again prn Time Spent With Patient Time: Total time spent is greater than 50% in coordination of care (as documented) at patient's floor/unit and/or counseling patient:
[2024-09-30 13:25] LABS: Vancomycin,Trough 13.9 mcg/mL (5.0-10.0)
[2024-09-30] MEDS: HEPARIN SOD LOCK SYR 100 UNIT/ML 500 UNIT IV (14:10)
[2024-09-30] MEDS: LIDOCAINE INJ PF 1% 30 ML VIAL 4 ML INFL (14:11)
--- NOTE | 2024-09-30 15:29 | PC.SS ---
Thiago Barrett is a 79-year old male admitted for Epidural Abscess CAD. SS met with patient and patient's brother, Eugenio at bedside to discuss discharge plan and verify demographic information. Patient Reports he is currently living with his brother, Eugenio Barrett and his brothers . Patient reports he utilizes a walker at home to assist with ambulation. Patient states his PCP is Dr. Lars Salazar at [facility]. Patient reports he is being seen by the wound center for w/ound care. The discharge plan was verified with patient and patient's brother reports patient was discharging to [facility] prior to [facility]LOC. SS contacted Stephanie from [facility] and informed her that patient will need IV ABX Venco until 10/16. Stephanie confirmed with her DON and they are able to accept patient when medically cleared. D/c plan: [facility] Next of kin: brotherEugenio [phone]
--- NOTE | 2024-09-30 15:38 | PC.SS ---
SS follow up note; Patient is pending a pic line. Patient will discharge to [facility] when medically cleared. SS sent requested Labs to [facility].
--- NOTE | 2024-09-30 15:43 | ESPR_ITS ---
Documentation for date of: 09/30/24 Subjective Subjective Interval history: No overnight events. Patient seen examined at bedside, resting comfortably. Denies fevers, chills, chest pain, nausea, vomiting. Plan for active voiding trial tomorrow. Per ID consult patient was started on vancomycin extended duration. Patient received PICC line today. Exam Vital Signs Temp Pulse Resp BP Pulse Ox O2 Del Method 97.8 F 85 18 139/66 H 92 L Room Air 09/30/24 13:33 09/30/24 14:23 09/30/24 14:23 09/30/24 14:23 09/30/24 14:23 09/30/24 14:23 Narrative Exam General: Alert, eating, no acute distress. HEENT: Atraumatic, moist mucous membranes. Cardiac: Normal S1 S2, regular rate and rhythm. Respiratory: Clear bilaterally. Abdomen: Soft, non-tender, non-distended. Extremities: Warm, foot wound clean and dry with erythema, no new drainage. Neuro: Alert and oriented x3, no focal deficits. Objective Labs 10/01/24 05:00 10/01/24 05:00 Labs: Laboratory Results - last 24 hr 09/29/24 09/30/24 00:00 12:45 Vancomycin Trough 13.9 H Hepatitis A IgM Ab Non Reactive Hep Bs Antigen Non Reactive Hep B Core IgM Ab Non Reactive Hepatitis C Antibody Non Reactive Quality Measures Quality Measures VTE prophylaxis Advance care planning discussed with:: patient and sibling Assessment & Plan Assessment Current Active Medications: Generic Name Dose Route Start Last Admin Trade Name Freq PRN Reason Stop Dose Admin Acetaminophen 650 mg 09/28/24 23:24 Acetaminophen 325 Mg Tablet PO 10/28/24 22:03 Q6H PRN MILD PAIN OR FEVER > 100.4 Protocol Hydrocodone Bitart/Acetaminophen 1 tab 09/28/24 22:04 09/30/24 05:25 Hydrocodone/Apap 5/325 Tablet PO 10/03/24 22:03 1 tab Q6HR PRN Administration PAIN SCALE 4-6 (Moderate Aspirin 81 mg 09/29/24 09:00 09/30/24 08:41 Aspirin Ec 81 Mg Tabec PO 10/29/24 08:59 81 mg QDAY SHANNAN Administration Atorvastatin Calcium 80 mg 09/29/24 21:00 09/29/24 22:04 Atorvastatin Calcium 20 Mg Tablet PO 10/29/24 20:59 80 mg HS SHANNAN Administration Bisacodyl 10 mg 09/28/24 22:04 Bisacodyl 5 Mg Tabec PO 10/28/24 22:03 QDAY PRN CONSTIPATION Protocol Calcium Carbonate 600 mg 09/29/24 09:00 09/30/24 08:41 Calcium Carbonate 600 Mg Tablet PO 10/29/24 08:59 600 mg QDAY SHANNAN Administration Clopidogrel Bisulfate 75 mg 09/29/24 09:00 09/30/24 08:41 Clopidogrel Bisulfate 75 Mg Tablet PO 10/29/24 08:59 75 mg QDAY SHANNAN Administration Dextrose 25 ml 09/28/24 22:04 Dextrose 50%-Water Inj 50 Ml Syringe IV 10/28/24 22:03 Q15MIN PRN BG 50-70 responsive npo pt Dextrose 50 ml 09/28/24 22:04 Dextrose 50%-Water Inj 50 Ml Syringe IV 10/28/24 22:03 Q15MIN PRN BG <50 OR BG <70 & pt unresponsive Gabapentin 300 mg 09/29/24 06:00 09/30/24 15:21 Gabapentin 300 Mg Capsule PO 10/29/24 05:59 300 mg TID SHANNAN Administration Glucagon 1 mg 09/28/24 22:04 Glucagon Inj 1 Mg Vial IM Q15MIN PRN BG <70, and no IV access Vancomycin/Sodium Chloride 200 mls @ 120 mls/hr 09/30/24 22:00 Vancomycin/Ns 1 Gm Ivpb IV 10/07/24 21:59 Q12H [facility] Insulin Human Lispro 0 unit 09/29/24 07:30 09/30/24 11:52 Insulin Lispro (Admelog) 1 Unit/0.01 Ml Unit SC 10/29/24 07:29 1 unit AC SHANNAN Administration Protocol Morphine Sulfate 2 mg 09/28/24 22:04 09/29/24 09:33 Morphine Sulf Inj 10 Mg/Ml Vial IVP 10/03/24 22:03 2 mg Q6HR PRN Administration PAIN SCALE 7-10 (Severe Nitroglycerin 0.4 mg 09/29/24 11:09 Nitroglycerin 0.4 Mg Subl Btl #25 SL Q5MIN PRN CHEST PAIN Ondansetron HCl 4 mg 09/29/24 09:48 Ondansetron Inj 2 Mg/Ml Inj 2 Ml IVP 10/29/24 09:47 Q6H PRN NAUSEA OR VOMITING Protocol Pantoprazole Sodium 40 mg 09/29/24 10:00 09/30/24 08:41 Pantoprazole 40 Mg Tablet PO 10/29/24 09:59 40 mg QDAY SHANNAN Administration Pharmacy Consult 1 each 09/29/24 10:50 Vancomycin Pharmacy To Dose 1 Each Each IV 10/29/24 10:49 QDAY PRN CONSULT Polyethylene Glycol 17 gm 09/29/24 10:00 09/30/24 08:40 Polyethylene Glycol 17 Gm Packet PO 10/29/24 09:59 17 gm QDAY SHANNAN Administration Plan 79-year-old male with PMH of MRSA bacteremia 2/2 diabetic foot wound, severe triple vessel CAD pending CABG, epidural abscess ruled out, mild chronic liver disease, persistent neck/back pain, and brief intermittent chest pain. #MRSA bacteremia #Epidural abscess ruled out MRI negative, multilevel stenosis only Persistent neck/back pain Likely 2/2 diabetic foot wound, on IV vanc pending BC. PICC line placed Plan: * On IV vancomycin, ID recommends 6?8 weeks * Awaiting current blood cultures * Plan for PICC line placement once cultures negative #Diabetic foot wound s/p I&D * Dressing clean, dry, no new drainage Plan: * Continue wound care #Urinary retention Patient has history of urinary retention, currently has Davies cath. Spoke with Urology on the phone. Plan: - Active voiding trial tomorrow morning #Severe triple vessel disease * LAD 90%, OM 99%, RCA 100%, EF 50% * AZAM negative for endocarditis * CABG deferred until MRSA bacteremia cleared Plan: * On aspirin 81mg, Plavix 75mg, atorvastatin 80mg daily * Reports brief mild chest pain --> nitroglycerin PRN added for episodes * Monitor EKG/troponins if worsening #Type 2 diabetes mellitus * A1c 5.5% * On metformin at baseline Plan: * SSI, ACHS glucose checks * Hypoglycemia protocol #Chronic pain * Persistent neck/back pain despite current regimen --> monitor, adjust if uncontrolled Plan: * Gabapentin 300 TID, [place]/morphine PRN #Transaminitis / Elevated ALP * Liver ultrasound: Mild ascites, irregular contour--> likely chronic liver disease * Gallbladder sludge, no stones or obstruction --> HIDA scan if indicated Plan: * Hepatitis panel negative * Monitor CMP daily #Electrolyte abnormalities Phos 2.2, Neutra-Phos given Ca 8.0, calcium carbonate given Plan: * Repeat daily labs, replete as needed Health Maintenance: * Disposition: Med telemetry, IV vanc * Feeding: Cardiac diet * DVT prophylaxis: SCDs, aspirin/Plavix * Lines: PIV, PICC planned when cleared * CODE STATUS: DNR ----- Plan discussed with attending physician Dr. Jeramy Teran MD PGY-2 Attending Provider Attestation/Addendum Deyanira Ac DO, attest that I was physically present for the fair portions of the service and evaluated the patient with the resident and I reviewed and discussed the case with the resident and agree with the resident's findings and plans of care as documented above Patient seen and eval this a.m. Brother is at bedside. Patient states that he is doing okay, he complains of some back pain otherwise. Patient is anxious to get up out of bed and work with physical therapy. PT has been ordered. Will do voiding trial in a.m. and consult urology due to urinary retention. Pending CMP to follow-up LFTs. Patient has been tolerating diet without issue. Blood cultures no growth to date x 24 hours. Appreciate ID recommendations. PICC line to be placed. Will follow-up with PT recommendations for dispo recommendations. Patient will need vancomycin for total of 6 weeks until 11/16.
[2024-09-30] MEDS: ATORVASTATIN CALCIUM 20 MG TABLET 80 MG PO (20:03)
[2024-10-01] VITALS: PULSE 80
[2024-10-01 04:00] VITALS: BP 104/48; PULSE 84; PULSE 85; RESP 15; TEMP 36.3; O2SAT 93
[2024-10-01] MEDS: GABAPENTIN 300 MG CAPSULE PO ×3 (05:08→21:04)
[2024-10-01 06:55] LABS: Alanine Aminotransferase 36 U/L (10-49); Albumin, Serum 3.3 gm/dL (3.4-4.8); Albumin/Globulin Ratio 1.3 (1.2-2.2); Alkaline Phosphatase 685 U/L (46-116); Anion Gap 9 (7-16); Aspartate Amino Transferase 25 U/L (0-34); BUN/Creatinine Ratio 9 Ratio (12-20); Bilirubin,Total 1.4 mg/dL (0.3-1.2); Blood Urea Nitrogen 7 mg/dL (9-23); Calcium 8.4 mg/dL (8.3-10.6); Calcium (Corrected) 9.0 mg/dL (8.5-10.1); Carbon Dioxide 28.0 mMol/L (20.0-31.0); Chloride 104 mMol/L (98-107); Creatinine (Component) 0.8 mg/dL (0.6-1.3); Estimated Creatinine Clearance 81.6 mL/min (>60); Globulin 2.6 gm/dL (2.3-3.5); Glucose 162 mg/dL (74-106); Osmolality,Calculated 283 (275-295); Potassium 3.7 mMol/L (3.4-5.1); Sodium 141 mMol/L (136-145); Total Protein 5.9 gm/dL (5.7-8.2); eGFR > 60 See Note
[2024-10-01 07:53] LABS: Basophils # (Auto) 0.1 Thou/mm3 (0.0-0.2); Basophils % (Auto) 1 % (0-2.5); Eosinophils # (Auto) 0.3 Thou/mm3 (0.0-0.5); Eosinophils % (Auto) 2 % (0-10); Hematocrit 35.3 % (41.0-53.0); Hemoglobin 12.1 g/dL (13.5-16.0); Immature Granulocytes Auto 0.07 Thou/mm3 (0.00-0.00); Lymphocytes # (Auto) 1.7 Thou/mm3 (1.0-4.8); Lymphocytes % (Auto) 13 % (10-50); Mean Corpuscular HGB Conc 34.3 g/dl (31.0-37.0); Mean Corpuscular Hemoglobin 33.2 pg (25.0-35.0); Mean Corpuscular Volume 97 fL (80-100); Monocytes # (Auto) 0.9 Thou/mm3 (0.0-0.8); Monocytes % (Auto) 6 % (0-12); Neutrophils # (Auto) 10.4 Thou/mm3 (1.8-7.7); Neutrophils % (Auto) 77 % (37-80); Nucleated Red Blood Cell # 0.00 Thou/mm3 (0.00-0.00); Nucleated Red Blood Cell % 0 /100 WBC (0); Platelet Count 575 Thou/mm3 (140-440); RDW Standard Deviation 43.1 fL (35.1-43.9); Red Blood Count 3.64 Miln/mm3 (4.50-5.90); White Blood Count 13.4 Thou/mm3 (3.8-10.6)
[2024-10-01 08:00] VITALS: BP 145/75; PULSE 83; PULSE 91; RESP 17; TEMP 36.9; O2SAT 95
[2024-10-01 08:11] LABS: Magnesium 1.8 mg/dL (1.6-2.6); Phosphorous 3.0 mg/dL (2.4-5.1)
[2024-10-01] MEDS: VANCOMYCIN/NS 1 GM IVPB 200 ML IV ×2 (09:21→21:04)
[2024-10-01] MEDS: ASPIRIN EC 81 MG TABEC PO (09:21)
[2024-10-01] MEDS: PANTOPRAZOLE 40 MG TABLET PO (09:22)
[2024-10-01] MEDS: CLOPIDOGREL BISULFATE 75 MG TABLET PO (09:22)
[2024-10-01] MEDS: CALCIUM CARBONATE 600 MG TABLET PO (09:22)
[2024-10-01] MEDS: INSULIN LISPRO (AdmeLOG) 1 UNIT/0.01 ML UNIT SC ×2 (11:18→16:57)
[2024-10-01 12:00] VITALS: BP 113/57; PULSE 84; PULSE 87; RESP 18; TEMP 37; O2SAT 91
--- NOTE | 2024-10-01 14:09 | ESPR_ITS ---
<Statement entered by Quincy Bowers MD - 10/01/24 17:09> Patient was seen and examined at the bedside. Will continue with IV vancomycin for 6 to 8 weeks. Waiting on blood cultures. Currently awaiting urology recommendations for active voiding trial since patient had a postvoid of 277 mL. I discussed and supervised with the customer operations intern physician who took care of this patient. I personally saw and examined the patient. I agree with most of the assessment and plan. Disclaimer: Despite multiple revisions, due to the dictation software being used, the document bellow may not be free of grammatical errors including phonetic/typographic errors. However, this does not deter from our commitment to providing health care in the patient's best interest in mind. Plan of care discussed with attending Physician Dr. Jeramy Bowers MD PGY-3 Documentation for date of: 10/01/24 Subjective Subjective Interval history: Patient seen and examined at bedside. Denies fevers, chills, chest pain, shortness of breath. Endorses mild persistent neck and back pain but controlled on current regimen. Shin catheter was removed for an active voiding trial patient did void but did not feel it. Post-void bladder scan showed residual of [address] Acuña was notified of the situation, he plans to see patient this afternoon, advised patient will stay overnight and likely discharge tomorrow, and recommended starting tamsulosin 0.4 mg and finasteride 5 mg for urinary retention. Exam Vital Signs Temp Pulse Resp BP Pulse Ox O2 Del Method O2 Flow Rate 98.6 F 84 18 113/57 L 91 L Room Air 1 10/01/24 12:00 10/01/24 12:10/01/24 12:10/01/24 12:10/01/24 12:10/01/24 12:10/01/24 08:00 Narrative Exam General: Alert, eating, no acute distress. HEENT: Atraumatic, moist mucous membranes. Cardiac: Normal S1 S2, regular rate and rhythm. Respiratory: Clear bilaterally. Abdomen: Soft, non-tender, non-distended. Extremities: Warm, foot wound clean and dry with erythema, no new drainage. Neuro: Alert and oriented x3, no focal deficits. Objective Labs 10/02/24 07:15 10/02/24 06:00 Labs: Laboratory Results - last 24 hr 10/01/24 05:00 WBC 13.4 H RBC 3.64 L Hgb 12.1 L Hct 35.3 L MCV 97 MCH 33.2 MCHC 34.3 RDW Std Deviation 43.1 Plt Count 575 H D Neut % (Auto) 77 Lymph % (Auto) 13 [place] % (Auto) 6 Eos % (Auto) 2 Baso % (Auto) 1 Neut # (Auto) 10.4 H Lymph # (Auto) 1.7 [place] # (Auto) 0.9 H Eos # (Auto) 0.3 Baso # (Auto) 0.1 Immature Gran # (Auto) 0.07 H Absolute Nucleated RBC 0.00 Immature Gran % 1 H Nucleated RBC % 0 Sodium 141 Potassium 3.7 Chloride 104 Carbon Dioxide 28.0 Anion Gap 9 BUN 7 L Creatinine 0.8 Estim Creat Clear Calc 81.6 eGFR > 60 BUN/Creatinine Ratio 9 L Glucose 162 H Calculated Osmolality 283 Calcium 8.4 Corrected Calcium 9.0 Phosphorus 3.0 Magnesium 1.8 Total Bilirubin 1.4 H AST 25 ALT 36 Alkaline Phosphatase 685 H D Total Protein 5.9 Albumin 3.3 L Globulin 2.6 Albumin/Globulin Ratio 1.3 Quality Measures Quality Measures VTE prophylaxis Advance care planning discussed with:: patient Assessment & Plan Assessment Current Active Medications: Generic Name Dose Route Start Last Admin Trade Name Freq PRN Reason Stop Dose Admin Acetaminophen 650 mg 09/28/24 23:24 Acetaminophen 325 Mg Tablet PO 10/28/24 22:03 Q6H PRN MILD PAIN OR FEVER > 100.4 Protocol Hydrocodone Bitart/Acetaminophen 1 tab 09/28/24 22:04 09/30/24 05:25 Hydrocodone/Apap 5/325 Tablet PO 10/03/24 22:03 1 tab Q6HR PRN Administration PAIN SCALE 4-6 (Moderate Aspirin 81 mg 09/29/24 09:00 10/01/24 09:21 Aspirin Ec 81 Mg Tabec PO 10/29/24 08:59 81 mg QDAY SHANNAN Administration Atorvastatin Calcium 80 mg 09/29/24 21:00 09/30/24 20:03 Atorvastatin Calcium 20 Mg Tablet PO 10/29/24 20:59 80 mg HS SHANNAN Administration Bisacodyl 10 mg 09/28/24 22:04 09/30/24 20:03 Bisacodyl 5 Mg Tabec PO 10/28/24 22:03 10 mg QDAY PRN Administration CONSTIPATION Protocol Calcium Carbonate 600 mg 09/29/24 09:00 10/01/24 09:22 Calcium Carbonate 600 Mg Tablet PO 10/29/24 08:59 600 mg QDAY SHANNAN Administration Clopidogrel Bisulfate 75 mg 09/29/24 09:00 10/01/24 09:22 Clopidogrel Bisulfate 75 Mg Tablet PO 10/29/24 08:59 75 mg QDAY SHANNAN Administration Dextrose 25 ml 09/28/24 22:04 Dextrose 50%-Water Inj 50 Ml Syringe IV 10/28/24 22:03 Q15MIN PRN BG 50-70 responsive npo pt Dextrose 50 ml 09/28/24 22:04 Dextrose 50%-Water Inj 50 Ml Syringe IV 10/28/24 22:03 Q15MIN PRN BG <50 OR BG <70 & pt unresponsive Finasteride 5 mg 10/01/24 14:00 Finasteride 5 Mg Tablet PO 10/31/24 13:59 QDAY SHANNAN Gabapentin 300 mg 09/29/24 06:00 10/01/24 13:34 Gabapentin 300 Mg Capsule PO 10/29/24 05:59 300 mg TID SHANNAN Administration Glucagon 1 mg 09/28/24 22:04 Glucagon Inj 1 Mg Vial IM Q15MIN PRN BG <70, and no IV access Vancomycin/Sodium Chloride 200 mls @ 120 mls/hr 09/30/24 22:00 10/01/24 09:21 Vancomycin/Ns 1 Gm Ivpb IV 10/07/24 21:59 120 mls/hr Q12H SHANNAN Administration Insulin Human Lispro 0 unit 09/29/24 07:30 10/01/24 11:18 Insulin Lispro (Admelog) 1 Unit/0.01 Ml Unit SC 10/29/24 07:29 3 unit AC SHANNAN Administration Protocol Morphine Sulfate 2 mg 09/28/24 22:04 09/29/24 09:33 Morphine Sulf Inj 10 Mg/Ml Vial IVP 10/03/24 22:03 2 mg Q6HR PRN Administration PAIN SCALE 7-10 (Severe Nitroglycerin 0.4 mg 09/29/24 11:09 Nitroglycerin 0.4 Mg Subl Btl #25 SL Q5MIN PRN CHEST PAIN Ondansetron HCl 4 mg 09/29/24 09:48 Ondansetron Inj 2 Mg/Ml Inj 2 Ml IVP 10/29/24 09:47 Q6H PRN NAUSEA OR VOMITING Protocol Pantoprazole Sodium 40 mg 09/29/24 10:00 10/01/24 09:22 Pantoprazole 40 Mg Tablet PO 10/29/24 09:59 40 mg QDAY [facility] Administration Pharmacy Consult 1 each 09/29/24 10:50 Vancomycin Pharmacy To Dose 1 Each Each IV 10/29/24 10:49 QDAY PRN CONSULT Polyethylene Glycol 17 gm 09/29/24 10:00 10/01/24 09:21 Polyethylene Glycol 17 Gm Packet PO 10/29/24 09:59 Not Given QDAY SHANNAN Tamsulosin HCl 0.4 mg 10/01/24 14:00 Tamsulosin Hcl 0.4 Mg Capsule PO 10/31/24 13:59 QDAY SHANNAN Plan 79-year-old male with PMH of MRSA bacteremia 2/2 diabetic foot wound, severe triple vessel CAD pending CABG, epidural abscess ruled out, mild chronic liver disease, persistent neck/back pain, and brief intermittent chest pain. #MRSA bacteremia #Epidural abscess ruled out MRI negative, multilevel stenosis only Persistent neck/back pain Likely 2/2 diabetic foot wound, on IV vanc pending BC. PICC line placed Plan: * On IV vancomycin, ID recommends 6?8 weeks * Awaiting current blood cultures * PICC line placed #Diabetic foot wound s/p I&D * Dressing clean, dry, no new drainagePlan: * Continue wound care #Urinary retention Patient has history of urinary retention, currently has Shin cath. Spoke with Urology on the phone. Plan: - Active voiding trial tomorrow morning #Severe triple vessel disease * LAD 90%, OM 99%, RCA 100%, EF 50% * AZAM negative for endocarditis * CABG deferred until MRSA bacteremia clearedPlan: * On aspirin 81mg, Plavix 75mg, atorvastatin 80mg daily * Reports brief mild chest pain --> nitroglycerin PRN added for episodes * Monitor EKG/troponins if worsening #Type 2 diabetes mellitus * A1c 5.5% * On metformin at baselinePlan: * SSI, ACHS glucose checks * Hypoglycemia protocol #Chronic pain * Persistent neck/back pain despite current regimen --> monitor, adjust if uncontrolledPlan: * Gabapentin 300 TID, Sheldon/morphine PRN #Transaminitis / Elevated ALP * Liver ultrasound: Mild ascites, irregular contour--> likely chronic liver disease * Gallbladder sludge, no stones or obstruction --> HIDA scan if indicatedPlan: * Hepatitis panel negative * Monitor CMP daily #Electrolyte abnormalities Phos 2.2, Neutra-Phos given Ca 8.0, calcium carbonate given Plan: * Repeat daily labs, replete as needed Health Maintenance: * Disposition: Med telemetry, IV vanc * Feeding: Cardiac diet * DVT prophylaxis: SCDs, aspirin/Plavix * Lines: PIV, PICC planned when cleared * CODE STATUS: DNR ----- Plan discussed with attending physician Dr. Jeramy Long MD PGY-1 Internal Medicine Attending Provider Attestation/Addendum I, Deyanira Deshpande, , attest that I was physically present for the fair portions of the service and evaluated the patient with the resident and I reviewed and discussed the case with the resident and agree with the resident's findings and plans of care as documented above Patient seen and evaluated this AM. He states that he is doing well. Back pain remains, but is chronic and controlled with pain medication. Patient pending PT today and urological evaluation due to urinary retention.Case was discussed with urology this evening and recommends shin catheter vs intermittent catheterization due to failed voiding trial. LFTs downtrending and patient has been tolerating diet, denies any RUQ pain. Anticipate DC within next 24h.
--- NOTE | 2024-10-01 14:33 | PC.SS ---
Rounding note: patient received a picc line. Dr. Mcnair to see the patient today.
[2024-10-01] MEDS: TAMSULOSIN HCL 0.4 MG CAPSULE PO (14:59)
[2024-10-01] MEDS: FINASTERIDE 5 MG TABLET PO (14:59)
[2024-10-01 16:00] VITALS: BP 132/69; PULSE 79; PULSE 83; RESP 17; TEMP 37.3; O2SAT 94
[2024-10-01 16:46] VITALS: BMI 13.0
--- NOTE | 2024-10-01 17:10 | PC.PT ---
Patient is safe to ambulate to the bathroom and in the halls with a FWW and 1 staff assist. RN made aware.
[2024-10-01 20:00] VITALS: BP 124/80; PULSE 101; PULSE 86; RESP 19; TEMP 37.1; O2SAT 91
[2024-10-01] MEDS: ATORVASTATIN CALCIUM 20 MG TABLET 80 MG PO (21:04)
[2024-10-02] VITALS: BP 125/74; PULSE 81; PULSE 85; RESP 19; TEMP 36.2; O2SAT 93
[2024-10-02 04:00] VITALS: BP 135/72; PULSE 78; PULSE 79; RESP 15; TEMP 36.5; O2SAT 93
[2024-10-02] MEDS: GABAPENTIN 300 MG CAPSULE PO ×2 (05:12→13:39)
[2024-10-02 06:58] LABS: Alanine Aminotransferase 28 U/L (10-49); Albumin, Serum 3.3 gm/dL (3.4-4.8); Albumin/Globulin Ratio 1.3 (1.2-2.2); Alkaline Phosphatase 526 U/L (46-116); Anion Gap 9 (7-16); Aspartate Amino Transferase 18 U/L (0-34); BUN/Creatinine Ratio 10 Ratio (12-20); Bilirubin,Total 1.2 mg/dL (0.3-1.2); Blood Urea Nitrogen 8 mg/dL (9-23); Calcium 8.2 mg/dL (8.3-10.6); Calcium (Corrected) 8.8 mg/dL (8.5-10.1); Carbon Dioxide 27.9 mMol/L (20.0-31.0); Chloride 104 mMol/L (98-107); Creatinine (Component) 0.8 mg/dL (0.6-1.3); Estimated Creatinine Clearance 81.6 mL/min (>60); Globulin 2.5 gm/dL (2.3-3.5); Glucose 183 mg/dL (74-106); Magnesium 1.9 mg/dL (1.6-2.6); Osmolality,Calculated 284 (275-295); Phosphorous 2.7 mg/dL (2.4-5.1); Potassium 3.3 mMol/L (3.4-5.1); Sodium 141 mMol/L (136-145); Total Protein 5.8 gm/dL (5.7-8.2); eGFR > 60 See Note
[2024-10-02 07:39] LABS: Basophils # (Auto) 0.1 Thou/mm3 (0.0-0.2); Basophils % (Auto) 1 % (0-2.5); Eosinophils # (Auto) 0.4 Thou/mm3 (0.0-0.5); Eosinophils % (Auto) 3 % (0-10); Hematocrit 34.8 % (41.0-53.0); Hemoglobin 12.5 g/dL (13.5-16.0); Immature Granulocytes Auto 0.09 Thou/mm3 (0.00-0.00); Lymphocytes # (Auto) 1.4 Thou/mm3 (1.0-4.8); Lymphocytes % (Auto) 11 % (10-50); Mean Corpuscular HGB Conc 35.9 g/dl (31.0-37.0); Mean Corpuscular Hemoglobin 33.4 pg (25.0-35.0); Mean Corpuscular Volume 93 fL (80-100); Monocytes # (Auto) 0.9 Thou/mm3 (0.0-0.8); Monocytes % (Auto) 7 % (0-12); Neutrophils # (Auto) 10.1 Thou/mm3 (1.8-7.7); Neutrophils % (Auto) 78 % (37-80); Nucleated Red Blood Cell # 0.00 Thou/mm3 (0.00-0.00); Nucleated Red Blood Cell % 0 /100 WBC (0); Platelet Count 566 Thou/mm3 (140-440); RDW Standard Deviation 41.7 fL (35.1-43.9); Red Blood Count 3.74 Miln/mm3 (4.50-5.90); White Blood Count 13.0 Thou/mm3 (3.8-10.6)
[2024-10-02 08:00] VITALS: BP 128/72; PULSE 81; PULSE 92; RESP 20; TEMP 36.8; O2SAT 93
[2024-10-02] MEDS: INSULIN LISPRO (AdmeLOG) 1 UNIT/0.01 ML UNIT SC ×2 (08:02→12:14)
[2024-10-02] MEDS: CALCIUM CARBONATE 600 MG TABLET PO (08:03)
[2024-10-02] MEDS: CLOPIDOGREL BISULFATE 75 MG TABLET PO (08:03)
[2024-10-02] MEDS: TAMSULOSIN HCL 0.4 MG CAPSULE PO (08:03)
[2024-10-02] MEDS: FINASTERIDE 5 MG TABLET PO (08:03)
[2024-10-02] MEDS: ASPIRIN EC 81 MG TABEC PO (08:03)
[2024-10-02] MEDS: POLYETHYLENE GLYCOL 17 GM PACKET PO (08:20)
[2024-10-02] MEDS: PANTOPRAZOLE 40 MG TABLET PO (08:20)
[2024-10-02 10:12] LABS: Vancomycin,Trough 12.6 mcg/mL (5.0-10.0)
[2024-10-02] MEDS: VANCOMYCIN/NS 1 GM IVPB 200 ML IV (11:04)
--- NOTE | 2024-10-02 11:59 | PC.SS ---
Addendum entered by KLAUDIA Hogan 10/02/24 16:16: Dispatch team called moved transport ETA to 1730. RN notified and SNF staff updated. Addendum entered by KLAUDIA Hogan 10/02/24 12:13: [facility] obtained by transfer nurse Lucía as the patient does not have transport coverage and on oxygen. [facility] ETA 1630. Patient and brother Eugenio at bed side updated. CAREY Roman and SNF staff Nicole informed. Addendum entered by KLAUDIA Hogan 10/02/24 12:02: Spoke with patient's brother Eugenio to confirm the d/c plan, he informs the patient will need transportation arranged to the facility. Original Note: SS update: sent updated clinicals and PASRR to [facility]. Confirmed with Nicole with [facility] that they can acept the patient today at their facility.
[2024-10-02 12:00] VITALS: BP 137/82; PULSE 72; PULSE 87; RESP 19; TEMP 36.8; O2SAT 97
[2024-10-02 16:00] VITALS: BP 129/75; PULSE 85; RESP 18; TEMP 36.4; O2SAT 95
--- NOTE | 2024-10-02 17:52 | ESDS_ITS ---
<Statement entered by Deyanira Deshpande DO - 10/03/24 07:07> I, Deyanira Deshpande DO, attest that I was physically present for the fair portions of the service and evaluated the patient with the resident and I reviewed and discussed the case with the resident and agree with the resident's findings and plans of care as documented above <Statement entered by Quincy Bowers MD - 10/02/24 20:35> I discussed and supervised with the internal combustion engine inspector physician who took care of this patient. I personally saw and examined the patient. I agree with most of the assessment and plan. Disclaimer: Despite multiple revisions, due to the dictation software being used, the document bellow may not be free of grammatical errors including phonetic/typographic errors. However, this does not deter from our commitment to providing health care in the patient's best interest in mind. Plan of care discussed with attending Physician Dr. Jeramy Bowers MD PGY-3 Planned Discharge Date 10/02/24 DS: Providers Provider Date of admission: 09/28/24 19:06 Primary care physician: Physician Paige Primary/Family Admitting Provider: Luigi Linn MD Attending Provider on Admission: Deyanira Deshpande DO Consults: 09/28/24 22:09 Consult to Infectious Diseases Routine Comment: Consulting Provider: Gómez Youssef 09/30/24 13:19 PT [Referral Physical Therapy] Routine Comment: Physician Instructions: 09/30/24 15:05 Consult to Urology Routine Comment: urinary retention Consulting Provider: Lakshmi Acuña Attending Provider on DC: RESIDENT Ingrid Discharging Provider: RESIDENT Ingrid DS: Diagnosis Problem List Completed Was Problem List Reviewed/Reconciled?: Yes Hospital Course Hospital Course Hospital course: Mr. Thiago Barrett is a 79-year-old male with MRSA bacteremia secondary to a diabetic foot wound s/p I&D, severe triple vessel CAD pending CABG, type 2 diabetes mellitus, chronic neck and back pain, and urinary retention who was admitted on 09/19 for a left foot infection. He underwent I&D by general surgery for the foot wound and was started on IV vancomycin; infectious disease was consulted. Blood cultures grew MRSA; AZAM was negative for endocarditis. He developed persistent back pain ? CT lumbar showed air density at L1?L2 ? MRI was concerning for epidural abscess, so he was transferred to [facility]. Repeat MRI thoracic and lumbar spine at [facility] confirmed no epidural abscess, only multilevel lumbar stenosis with no cord compression. Neurosurgery recommended no intervention. He returned to complete a 6?8 week IV vancomycin course with a PICC line placed. Liver ultrasound showed mild ascites, irregular liver contour, and gallbladder sludge ? consistent with mild chronic liver disease; hepatitis panel was negative. He was evaluated for urinary retention, underwent a voiding trial but had a residual of ~277?cc with no sensation of voiding. Urology recommended tamsulosin 0.4?mg daily and finasteride 5?mg daily, with plan to discharge with Davies catheter in place. His back pain was attributed to lumbar stenosis, not infection, and was managed conservatively with gabapentin and PRN opioids. He remained hemodynamically stable, without respiratory distress, and is safe for discharge with Davies in place to a SNF to complete IV antibiotics, wound care, and Davies care. Patient is at high risk for readmission due to chronic infection, PICC line, Davies, wound care needs, and severe CAD. Diagnoses During Admission #MRSA bacteremia 2/2 diabetic foot wound s/p I&D #Diabetic foot wound s/p I&D #Severe triple vessel CAD (LAD 90%, OM 99%, RCA 100%) pending CABG #Chronic back/neck pain secondary to lumbar stenosis (epidural abscess ruled out) #Urinary retention--> discharged with Davies, on tamsulosin and finasteride #Type 2 diabetes mellitus, well controlled #Mild chronic liver disease with transaminitis and elevated ALP #Hyponatremia and mild electrolyte abnormalities (corrected) #History of remote valley fever (inactive) Care Plan Goals -You are being discharged on IV Vancomycin once a day until 11/16/2024 -Please see you primary care provider for weekly lab draws including CBC, ESR, and renal panel. -Have PICC line removed at end of antibiotic course. -Continue Aspirin and Plavix once a day daily and follow with your solar installer as outpatient since you have recent stents placement -Please follow up with your primary care provider within 1 week. -Return to the ED if you develop new or worsening symptoms. ----- Plan discussed with attending physician Dr. Deshpande and senior resident Dr Robinson Long MD PGY-1 Internal Medicine Time Spent with Patient Time attestation: Total time spent providing and/or coordinating discharge services: Time spent: Greater than 30 minutes Exam Vital Signs Temp Pulse Resp BP Pulse Ox O2 Del Method O2 Flow Rate 97.6 F 85 18 129/75 95 Nasal Cannula 1 10/02/24 16:00 10/02/24 16:00 10/02/24 16:00 10/02/24 16:00 10/02/24 16:00 10/02/24 16:00 10/02/24 16:00 Narrative Exam Physical Exam on Discharge General: Alert, cooperative, no acute distress. Cardiac: S1 S2 normal, RRR. Respiratory: No respiratory distress, lungs clear bilaterally. Abdomen: Soft, non-tender, no distension. Extremities: Left foot wound dressing clean, dry, no drainage. Neuro: A&O x3, no focal deficits. Lines: PICC line intact, clean. Davies catheter in place. Discharge Plan Plan Patient Disposition: Xfer Skilled Nsg Fac (SNF) Patient condition on transfer: Stable Care Plan Goals: You are being discharged on IV Vancomycin once a day until 11/16/2024 Please see you primary care provider for weekly lab draws including CBC, ESR, and renal panel. Have PICC line removed at end of antibiotic course. Continue Aspirin and Plavix once a day daily and follow with your solar installer as outpatient since you have recent stents placement Please follow up with your primary care provider within 1 week. Return to the ED if you develop new or worsening symptoms. Prescriptions/Referrals Prescriptions/Med Rec: New atorvastatin 80 mg tablet 80 mg PO HS Qty: 90 0RF clopidogrel 75 mg Tablet 75 mg PO QDAY 90 Days Qty: 90 0RF tamsulosin 0.4 mg Capsule 0.4 mg PO QDAY Qty: 90 0RF finasteride 5 mg Tablet 5 mg PO QDAY Qty: 90 0RF lidocaine 5 % adhesive patch,medicated 1 patch topical QDAY PRN (Reason: back pain) Qty: 30 0RF Rx Instructions: leave on most painful area for up to 12 hrs Continued aspirin 81 mg tablet 81 mg PO QDAY metformin 500 mg tablet 500 mg PO BIDWMEAL gabapentin 300 mg capsule 300 mg PO Q8H PRN (Reason: back pain) omeprazole 20 mg capsule,delayed release(DR/EC) 20 mg PO QDAY Discontinued atorvastatin [Lipitor] 20 mg tablet 20 mg PO QDAY Referrals: No Primary/Family,Physician [Primary Care Provider] - Patient/Caregiver Discharge Instructions Print Language: Tuvaluan Stand Alone Forms: Elaine Award Info., Patient Portal Info Letter Discharge Order Discharge Orders: Discharge (Routine); Ordered 10/02/24 Ordered By: Quincy Bowers Quality Discharge Quality Measures VTE prophylaxis
--- NOTE | 2024-10-03 07:51 | ESCONSULT_ITS ---
RE: [employer]MAN STEEL : 1945 DATE OF CONSULTATION: 09/28/2024 CHIEF COMPLAINT: 1. Urinary retention. 2. Neurogenic bladder. 3. Prostate cancer, status post radical prostatectomy done more than 10 years ago at a different facility. COMORBID CONDITIONS: 1. Coronary artery disease status post triple vessel disease pending CABG. 2. Diabetes mellitus. 3. Sciatica. 4. History of valley fever. HISTORY OF PRESENT ILLNESS: This is a 79-year-old gentleman. This is his second visit to the emergency room, first was in 08/2024 with the infection and was admitted to. He was treated with IV antibiotics and I and D of lower extremity was done by general surgery. The patient had elevated troponins and cardiology consultation was instituted. The patient was started on IV antibiotics. He had an MRI done, which showed an epidural enhancement posterior L1-L2 level up to 7.5 mm in thickness and it was suspicious for epidural abscess. The patient was transferred to [facility] in [place]. The studies were repeated and no evidence of epidural abscess was identified. The patient went into urinary retention and he had placement of Davies catheter. Today, Davies catheter was removed. Trial of voiding was instituted. The patient was unable to urinate. This evening, bladder scan was done. He had close to 700 mL of urine in the bladder. The patient is going to continue antibiotics IV for 6-8 weeks. Davies catheter was inserted by me and there were more than 500 mL of urine drained. PAST MEDICAL HISTORY: Triple vessel disease, pending CABG. PAST SURGICAL HISTORY: Hernia repair, prostate surgery. REVIEW OF SYSTEMS: All systems reviewed normal except as documented. PHYSICAL EXAMINATION: VITAL SIGNS: His vital signs are stable. GENERAL: Condition is satisfactory. The patient is not in acute distress. He is lying in the bed. HEENT: Normocephalic and atraumatic. Eyes: No anemia or jaundice. CHEST: Symmetrical, clear to auscultation. HEART: Regular rate and rhythm. ABDOMEN: No masses. Liver, spleen, kidneys are not palpable. He has distended bladder. VARIOUS LABS: WBC is 12.9, hemoglobin is 12.1, HCT is 43.3. Serum sodium is 138, potassium 3.8, BUN is 10, creatinine 0.8. PLAN: I inserted Davies catheter since he has radical prostatectomy. Tamsulosin and finasteride is not going to help him. I did discuss with his brother about doing an intermittent catheterization. They are going to think about it. Otherwise, the patient will be going home on Davies catheter and he can continue to follow up with me in my office. DT: 17:40:01 TT: 21:51:00 Ref: [id number] - TID: [id number]
[2024-10-04 06:56] LABS: Gamma Glutamyl Transpeptidase* 390 U/L (3-70)
== END 2024-10-02 16:57 | disposition skilled nursing facility (03) | DRG 638 ==
PROVIDERS: Student in an Organized Health Care Education/Training Program; Admitting Provider Internal Medicine; Visit Provider Internal Medicine
DX: E11.628 Type 2 diabetes mellitus with other skin complications (principal); R18.8 Other ascites; L08.9 Local infection of the skin and subcutaneous tissue, unspecified; M48.061 Spinal stenosis, lumbar region without neurogenic claudication; B95.62 Methicillin resistant Staphylococcus aureus infection as the cause of diseases classified elsewhere; E78.5 Hyperlipidemia, unspecified; I25.10 Atherosclerotic heart disease of native coronary artery without angina pectoris; E11.51 Type 2 diabetes mellitus with diabetic peripheral angiopathy without gangrene; K76.9 Liver disease, unspecified; G89.29 Other chronic pain; Z66 Do not resuscitate; N31.9 Neuromuscular dysfunction of bladder, unspecified; Z79.84 Long term (current) use of oral hypoglycemic drugs; M54.30 Sciatica, unspecified side; Z79.02 Long term (current) use of antithrombotics/antiplatelets; Z79.82 Long term (current) use of aspirin; Z79.899 Other long term (current) drug therapy; Z85.46 Personal history of malignant neoplasm of prostate; Z90.79 Acquired absence of other genital organ(s); R33.9 Retention of urine, unspecified; E87.8 Other disorders of electrolyte and fluid balance, not elsewhere classified; R07.9 Chest pain, unspecified
CPT/HCPCS: 36415; 76700; 80053; 80074; 80202; 82977; 83735; 84100; 85025; 87040; 87081; 93225; 97163; C1751; C1894; J1642; J1815; J2270; J3370; J3490; J7050; A9270

== ENCOUNTER 2024-10-03 23:40 | Emergency (ER) | payer MEDICARE, SELFPAY ==
[2024-10-03 23:45] VITALS: PULSE 110; O2SAT 98; BMI 20.8
[2024-10-03 23:47] VITALS: BP 130/69; PULSE 91; RESP 18; TEMP 37.2; O2SAT 99
[2024-10-04] VITALS (33 sets, daily range): BP systolic 130–161; BP diastolic 68–108; PULSE 77–120; RESP 12–32; TEMP 36.7–37.2; O2SAT 82–98
--- NOTE | 2024-10-04 00:05 | PD.EDMALE ---
ED Male Genitalurinary RME/HPI General Chief complaint: Urogenital-Male Stated complaint: HEMORRHAGE Time Seen by Provider: 10/04/24 00:04 Arrival date/time: 10/03/24 23:40 RME / HPI RME / HPI Narrative: Dr. Barnes?s Main ED Evaluation: 79yo male with a history of DMII who was recently discharged for known diabetic foot ulcer requiring PICC line therapy MARY from [facility] presents to the ED after reportedly dislodging his shin catheter with the balloon still intact per EMS. There was noted penile hemorrhage on scene that was controlled with direct pressure. Related Data Home Medications ?Medication ?Instructions ?Recorded ?Confirmed aspirin 81 mg tablet 81 mg PO QDAY 09/19/24 09/29/24 gabapentin 300 mg capsule 300 mg PO Q8H PRN back pain 09/19/24 09/29/24 metformin 500 mg tablet 500 mg PO BIDWMEAL 09/19/24 09/29/24 omeprazole 20 mg capsule,delayed 20 mg PO QDAY 09/19/24 09/29/24 release Previous Rx's ?Medication ?Instructions ?Recorded atorvastatin 80 mg tablet 80 mg PO HS #90 tabs 10/02/24 clopidogrel 75 mg tablet 75 mg PO QDAY 90 days #90 tabs 10/02/24 finasteride 5 mg tablet 5 mg PO QDAY #90 tabs 10/02/24 lidocaine 5 % topical patch 1 patch topical QDAY PRN back pain 10/02/24 #30 ea tamsulosin 0.4 mg capsule 0.4 mg PO QDAY #90 caps 10/02/24 Allergies Allergy/AdvReac Type Severity Reaction Status Date / Time No Known Allergies Allergy Verified 09/19/24 14:41 Review of Systems Review of Systems Systems Reviewed: All systems reviewed, normal except as documented Past Medical History Past Medical History NEUROLOGIC: Positive Dementia (early stages) CARDIAC: Positive Hypercholesterolemia; Negative Congestive Heart Failure RESPIRATORY: Negative Chronic Obstructive Pulmonary Disease (COPD) GENITOURINARY: Positive Prostate Cancer; Negative Renal Disease ENDOCRINE: Positive Diabetes Mellitus Type 2; Negative Diabetes Mellitus Type 1 OTHER HISTORY: Positive Prostate Cancer Social History SMOKING STATUS: Former smoker ED Exam Narrative Physical exam: GENERAL APPEARANCE: awake, alert and oriented x3, chronically ill appearing, denies penile pain, no acute distress VITALS: All vitals were reviewed and the pulse ox is 99% on room air, which is normal according to my interpretation. HEENT: Normocephalic, atraumatic; pupils equal, round, reactive to light; EOMI; mucous membranes pink, moist; oropharynx clear NECK: Supple LUNGS: CTABL; no wheezes, no rales, no rhonchi HEART: Regular rate, regular rhythm; normal S1, S2; no murmurs ABDOMEN: non distended; normal BS; soft, no tenderness, no guarding, no rebound; no masses, no organomegaly, no hernia BACK: no CVA tenderness : gross blood with clots at the meatus, normal phallus without edema, no tenderness at the base of the shaft, no ecchymosis; testicles are downward and nontender EXTREMITIES: atraumatic; no edema NEUROLOGIC: awake; alert and oriented x3; cranial nerves II-XII grossly intact; no focal sensory or motor deficits PSYCHIATRIC: appropriate mood and affect SKIN: warm, dry, normal color; no rashes Course Quality Measures none Orders Category Date Time Status Bladder Scan NEEDED Care 10/04/24 00:16 Active CBC [CBC] Stat Lab 10/04/24 00:28 Completed CMP [Comprehensive Metabolic Panel] Stat Lab 10/04/24 00:28 Completed Morphine Inj Med 10/04/24 02:55 Discontinued 4 mg IVP X1 ONE Ondansetron Inj [Zofran Inj] Med 10/04/24 02:56 Discontinued 4 mg IVP X1 ONE Sodium Chloride 0.9% 1000 ml [Ns] 1,000 ml Med 10/04/24 00:15 Active IV 125 mls/hr Vital Signs Vital signs: Vital Signs Temperature 99 F 10/03/24 23:47 Pulse Rate 91 10/03/24 23:47 Respiratory Rate 18 10/03/24 23:47 Blood Pressure 130/69 10/03/24 23:47 Pulse Oximetry (%) 99 10/03/24 23:47 Oxygen Delivery Method Room Air 10/03/24 23:47 Urogenital - Male MDM Narrative MDM Narrative:: Scribe Attestation: 10/04/24 - Terri Ac am scribing for and in the presence of Dr. Barnes. 79yo male with a history of DMII who was recently discharged for known diabetic foot ulcer requiring PICC line therapy MARY from [facility] presents to the ED after reportedly dislodging his shin catheter with the balloon still intact per EMS. There was noted penile hemorrhage on scene that was controlled with direct pressure. Please see PE findings. Labs show WBC count 11, slightly decreased Hgb at 10.8 with thrombocytosis platelet count of 508. CMP shows normal Creatinine clearance and elevated blood sugar 232. UA deferred. Patient placed on monitor and complains of chronic SI joint inflammations, given low dose analgesic. Remained stable. Bleeding at the meatus has significantly decreased. Given high likelihood of urethral sphincter tear, will require retrograde urography. Urological services is not present here at this facility. Patient was accepted for transfer by Dr. Graham, urologist, and Dr. Castellon, hospitalist, at [facility] for further urological intervention. 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 Patient data External records reviewed:: [facility] previous records (Per chart review, patient was admitted here on 09/19/24 for diabetic foot infection.) Clinical information provided by:: patient Social determinants that could affect healthcare access:: none Patient has the following chronic illnesses:: DM, HLD How is presenting disease/condition affected by chronic disease/condition?: uneffected by Evaluation data The following diagnostics were reviewed and interpreted by me:: lab results Lab and/or radiology exams considered but not ordered:: none Interpretation Summary: see MDM. Medications / Prescriptions Medications or Prescriptions considered but not ordered:: none Medication administrations:: Medication Administration History Sodium Chloride (Ns) 1,000 mls @ 125 mls/hr IV .Q8H [facility] Stop: 11/03/24 00:14 Last Admin: 10/04/24 00:31 Dose: 125 mls/hr Documented By: BRII Discontinued Medications Morphine Sulfate (Morphine Sulf Inj 10 Mg/Ml Vial) 4 mg IVP X1 ONE Stop: 10/04/24 02:56 Last Admin: 10/04/24 03:23 Dose: 4 mg Documented By: BRII Ondansetron HCl (Ondansetron Inj 2 Mg/Ml Inj 2 Ml) 4 mg IVP X1 ONE; Protocol Stop: 10/04/24 02:57 Last Admin: 10/04/24 03:22 Dose: 4 mg Documented By: BRII see above Consultations Consultation(s) initiated? (list below): Yes Diagnosis Urogenital Male Differential Diagnosis: other (shin catheter dislodgement, shin catheter malfunction, accidental shin catheter injury) Most likely diagnosis given after review of the tests above:: see clinical impression below Admission Indicated Admission indicated?: not indicated Explain why admission is indicated or not indicated:: Requires a higher [id number] with urology. Admission Request Was there a request for admission?: No Disposition Plan Disposition Plan: Transfer Discharge Plan Plan Patient Disposition: [facility] Pt Being Transferred to: [facility] Service Needed for Transfer: Urology Prescriptions/Referrals Prescriptions/Med Rec: No Action aspirin 81 mg tablet 81 mg PO QDAY metformin 500 mg tablet 500 mg PO BIDWMEAL gabapentin 300 mg capsule 300 mg PO Q8H PRN (Reason: back pain) omeprazole 20 mg capsule,delayed release(DR/EC) 20 mg PO QDAY atorvastatin 80 mg tablet 80 mg PO HS Qty: 90 0RF clopidogrel 75 mg Tablet 75 mg PO QDAY 90 Days Qty: 90 0RF tamsulosin 0.4 mg Capsule 0.4 mg PO QDAY Qty: 90 0RF finasteride 5 mg Tablet 5 mg PO QDAY Qty: 90 0RF lidocaine 5 % adhesive patch,medicated 1 patch topical QDAY PRN (Reason: back pain) Qty: 30 0RF Rx Instructions: leave on most painful area for up to 12 hrs Referrals: Corey Russell MD [Primary Care Provider] - In 1 week Problem List Clinical Impression: Dislodged Shin catheter, Dementia Patient/Caregiver Discharge Instructions Print Language: Yoruba Stand Alone Forms: Elaine Award Info., Patient Portal Info Letter
--- NOTE | 2024-10-04 00:30 | PC.NURSE ---
PT STATES HE DOESNT KNOW WHY THEY INSTERED PICC LINE
--- NOTE | 2024-10-04 00:30 | PC.NURSE ---
0023 [facility] contacted for urology states they do not have urology at the moment. 0025 Braxton from [facility] stated they are going to check with [facility] to see if urology is available to present case. Will forward packet and wait for their response. Pt has pulled out shin catheter with inflated balloon and will need urology for retrograde urethragram due to a urethral tear
[2024-10-04] MEDS: SODIUM CHLORIDE 0.9% 1000 ML 1,000 ML 125 ML IV (00:31)
[2024-10-04 00:38] LABS: Basophils # (Auto) 0.2 Thou/mm3 (0.0-0.2); Basophils % (Auto) 2 % (0-2.5); Eosinophils # (Auto) 0.4 Thou/mm3 (0.0-0.5); Eosinophils % (Auto) 3 % (0-10); Hematocrit 31.1 % (41.0-53.0); Hemoglobin 10.8 g/dL (13.5-16.0); Immature Granulocytes Auto 0.10 Thou/mm3 (0.00-0.00); Lymphocytes # (Auto) 1.6 Thou/mm3 (1.0-4.8); Lymphocytes % (Auto) 15 % (10-50); Mean Corpuscular HGB Conc 34.7 g/dl (31.0-37.0); Mean Corpuscular Hemoglobin 33.5 pg (25.0-35.0); Mean Corpuscular Volume 97 fL (80-100); Monocytes # (Auto) 1.1 Thou/mm3 (0.0-0.8); Monocytes % (Auto) 10 % (0-12); Neutrophils # (Auto) 7.6 Thou/mm3 (1.8-7.7); Neutrophils % (Auto) 70 % (37-80); Nucleated Red Blood Cell # 0.00 Thou/mm3 (0.00-0.00); Nucleated Red Blood Cell % 0 /100 WBC (0); Platelet Count 507 Thou/mm3 (140-440); RDW Standard Deviation 41.8 fL (35.1-43.9); Red Blood Count 3.22 Miln/mm3 (4.50-5.90); White Blood Count 11.0 Thou/mm3 (3.8-10.6)
--- NOTE | 2024-10-04 00:53 | PC.NURSE ---
118ml bladder scan. provider notified
[2024-10-04 00:55] LABS: Alanine Aminotransferase 21 U/L (10-49); Albumin, Serum 3.2 gm/dL (3.4-4.8); Albumin/Globulin Ratio 1.3 (1.2-2.2); Alkaline Phosphatase 330 U/L (46-116); Anion Gap 10 (7-16); Aspartate Amino Transferase 19 U/L (0-34); BUN/Creatinine Ratio 10 Ratio (12-20); Bilirubin,Total 0.9 mg/dL (0.3-1.2); Blood Urea Nitrogen 9 mg/dL (9-23); Calcium 8.1 mg/dL (8.3-10.6); Calcium (Corrected) 8.7 mg/dL (8.5-10.1); Carbon Dioxide 24.3 mMol/L (20.0-31.0); Chloride 104 mMol/L (98-107); Creatinine (Component) 0.9 mg/dL (0.6-1.3); Estimated Creatinine Clearance 68.6 mL/min (>60); Globulin 2.5 gm/dL (2.3-3.5); Glucose 232 mg/dL (74-106); Osmolality,Calculated 281 (275-295); Potassium 3.4 mMol/L (3.4-5.1); Sodium 138 mMol/L (136-145); Total Protein 5.7 gm/dL (5.7-8.2); eGFR > 60 See Note
--- NOTE | 2024-10-04 01:21 | PC.NURSE ---
KENNEDY FROM THE [facility] CALLED AND SHE ENCOURAGED US TO TRY OTHER FACILITIES BECAUSE SHE IS HAVING TROUBLE GETTING IN CONTACT WITH THEIR UROLOGY PROVIDER.
--- NOTE | 2024-10-04 02:10 | PC.NURSE ---
[facility] faxed over packed for possible transfer, they stated they have certain immediate criteria to contact urology past 2300. They will present the case at the 0600.
--- NOTE | 2024-10-04 02:15 | PC.NURSE ---
PT REQUESTED TO CALL BROTHER ALVARO [employer]EL TO GIVE HIM AN UPDATE. ALVARO WAS PROVIDED AN UPDATE ON PTS CONDITION. THIS RN ASKED BROTHER IF HE KNEW THE REASON FOR PICC LINE. BROTHER STATES THAT HE WAS GETTING LOTS OF ANTIBOTICS.
[2024-10-04] MEDS: ONDANSETRON INJ 2 MG/ML INJ 2 ML 4 MG IVP (03:22)
[2024-10-04] MEDS: MORPHINE SULF INJ 10 MG/ML VIAL 4 MG IVP (03:23)
--- NOTE | 2024-10-04 05:40 | PC.NURSE ---
THIS RN WITNESSED PT GETTING UP FROM BED. PT NOTED INCREASES AGAITION. THIS RN NOTED THAT THE PT REMOVED PICC LINE. THIS RN ASSESSED IV SITE. NO REDNESS OR SWELLING NOTED. CMS INTACT. PT ATTEMPTED TO REDIRECT PT, BUT HAD NO SUCCESS. PROVIDER WAS NOTIFED ABOUT SITUATION VERBAL ORDERS GIVEN FOR [facility]
--- NOTE | 2024-10-04 05:41 | PC.NURSE ---
Braxton called back with admitting information. MD Huitron the accepting attendee with Urologist MD Mckenzie. Pt is needing a retrograde urethragram due to a urethral tear. After forcefully pulling shin catheter out with balloon inflated. Packet has been prepared, no imaging disk due to no imaging done in house. Transportation needs to be setup once they call back with bed assignment.
[2024-10-04] MEDS: HALOPERIDOL LACT INJ 5 MG/ML VIAL IM (05:45)
--- NOTE | 2024-10-04 05:46 | PC.NURSE ---
[facility]- transport to be setup once they contact us with bed assignment
--- NOTE | 2024-10-04 06:00 | PC.NURSE ---
TERA MUNOZ, IS SITTING ON PT
--- NOTE | 2024-10-04 06:55 | PC.NURSE ---
BROTHER AT BEDSIDE WITH PT
--- NOTE | 2024-10-04 08:56 | PC.CC ---
Mayra GARCIA was consulted by Transfer RN Fabrizio regarding assistance setting up transportation for patient to [facility]. ASW arranged transportation for patient with [facility].
[2024-10-04] MEDS: HYDROcodone/APAP 7.5/325 TABLET 1 TAB PO (09:36)
== END 2024-10-04 10:25 | disposition short-term general hospital (02) ==
PROVIDERS: Emergency Provider Emergency Medicine; PCP Hospitalist
DX: T83.021A Displacement of indwelling urethral catheter, initial encounter (principal); N48.89 Other specified disorders of penis; F03.90 Unspecified dementia, unspecified severity, without behavioral disturbance, psychotic disturbance, mood disturbance, and anxiety
CPT/HCPCS: 36415; 80053; 81001; 85025; 96361; 96372; 96374; 96375; J1630; J2270; J2405; J7030; A9270

== ENCOUNTER → 2024-10-11 | Outpatient (CLI) | payer MEDICARE, SELFPAY ==
--- NOTE | 2024-10-11 08:00 | XR_ITS ---
Examination: Ultrasound-guided needle placement right brachial vein. Dual-lumen central line placement (PICC line). Fluoroscopy AP chest, portable, single view Exam date and time:October 11, 2024 0919 hours INDICATIONS: Need for long-term intravenous antibiotic therapy A timeout was completed verifying correct patient, procedure, site, positioning Informed consent provided Technique: The patient's site was prepped and draped in sterile fashion. Maximum Sterile Barrier Technique used including cap, mask, sterile gown, sterile gloves, and sterile full body drape. If ultrasound technique used: sterile gel and sterile probe covers. Hand Hygiene performed using proper scrub, soap and water, or alcohol-based hand rub. Site right portable apparatus utilized to confirm patency of the right brachial vein Utilizing ultrasonographic guidance successful 21-gauge needle puncture into the right brachial vein Ultrasound images recorded and stored. 5 cc 1% lidocaine administered for local anesthetic. Successful micropuncture with a 21-gauge needle is performed. 0.18 wire guide is then introduced into the SVC under fluoroscopic guidance. Dual-lumen catheter dilator is then introduced, followed by the catheter in the SVC and proper position under fluoroscopic guidance. Successful aspiration of blood and flushing with heparinized saline is then performed in the 2 venous limbs. The catheter sutured in place. Findings: Under fluoroscopy, the tip of the catheter is in good position in the vena cava. Portable chest x-ray, post line placement is ordered. Estimated blood loss 3 cc The patient tolerated the procedure well and was in stable and satisfactory condition at completion of the procedure Impression: Successful ultrasound-guided needle placement right brachial vein Successful placement of dual lumen central line, percutaneous Fluoroscopy 0.1 minute radiation dose 0.25 milligray 1 spot fluoroscopic chest film. AP chest completion procedure demonstrates satisfactory position central line. May use central line.
[2024-10-11 08:57] VITALS: BP 102/67; PULSE 89; RESP 17; O2SAT 96
[2024-10-11 10:00] VITALS: BP 127/68; PULSE 73; RESP 10; O2SAT 98
[2024-10-11] MEDS: LIDOCAINE INJ PF 1% 30 ML VIAL INFL (10:06)
--- NOTE | 2024-10-11 10:06 | PC.NURSE ---
Patient in IR here for a PICC line insertion that was pulled out yesterday. Vital signs stable and patient not complaining of pain.
[2024-10-11] MEDS: HEPARIN SOD LOCK SYR 100 UNIT/ML 500 UNIT STFIELD (10:10)
--- NOTE | 2024-10-11 10:30 | PC.NURSE ---
Time out:1005 Start time 1006 End time: 1011 Tesfaye RT in room with Dr. lewis
== END | disposition home or self-care (01) ==
PROVIDERS: PCP Hospitalist; Referring Provider Hospitalist; Visit Provider Hospitalist
DX: L02.612 Cutaneous abscess of left foot (principal); E11.65 Type 2 diabetes mellitus with hyperglycemia
CPT/HCPCS: 36558; C1751; C1894; J1642; J3490; J7050

== ENCOUNTER 2024-10-31 12:04 | Emergency (ER) | payer MEDICARE, SELFPAY ==
[2024-10-31] VITALS (7 sets, daily range): BP systolic 108–135; BP diastolic 60–79; PULSE 67–83; RESP 16–18; TEMP 36.7–36.9; O2SAT 95–98; BMI 23.8
--- NOTE | 2024-10-31 | XR_ITS ---
Examination: Ultrasound-guided needle placement right brachial vein. Dual-lumen central line placement (PICC line). Fluoroscopy AP chest, portable, single view Exam date and time:October 31, 2024 1244 hours INDICATIONS: Need for long-term intravenous antibiotic therapy for osteomyelitis A timeout was completed verifying correct patient, procedure, site, positioning Informed consent provided Technique: The patient's site was prepped and draped in sterile fashion. Maximum Sterile Barrier Technique used including cap, mask, sterile gown, sterile gloves, and sterile full body drape. If ultrasound technique used: sterile gel and sterile probe covers. Hand Hygiene performed using proper scrub, soap and water, or alcohol-based hand rub. Site right portable apparatus utilized to confirm patency of the right brachial vein Utilizing ultrasonographic guidance successful 21-gauge and a puncture into the right brachial vein . Ultrasound images recorded and stored. 5 cc 1% lidocaine administered for local anesthetic. Successful micropuncture with a 21-gauge needle is performed. 0.18 wire guide is then introduced into the SVC under fluoroscopic guidance. Dual-lumen catheter dilator is then introduced, followed by the catheter in the SVC and proper position under fluoroscopic guidance. Successful aspiration of blood and flushing with heparinized saline is then performed in the 2 venous limbs. The catheter sutured in place. Findings: Under fluoroscopy, the tip of the catheter is in good position in the vena cava. Portable chest x-ray, post line placement is ordered. Estimated blood loss 3 cc The patient tolerated the procedure well and was in stable and satisfactory condition at completion of the procedure Impression: Successful ultrasound-guided needle placement right brachial vein Successful placement of dual lumen central line, percutaneous Fluoroscopy 0.2 minute radiation dose 0.99 milligray 1 spot fluoroscopic chest film. AP chest completion procedure demonstrates satisfactory position central line. May use central line.
--- NOTE | 2024-10-31 12:06 | PD.EDRECHK ---
ED Recheck Abnl Lab Rx-RME/HPI General Chief Complaint: Extremity Injury, Upper Stated Complaint: PICC LINE REPLACEMENT Time Seen by Provider: 10/31/24 12:06 Arrival date/time: 10/31/24 12:04 RME / HPI RME / HPI narrative: DR. HERNANDEZ MAIN ED EVALUATION: 79-year-old male with history of type 2 diabetes mellitus, sciatica, remote history of valley fever, chronic neck and back pain, urinary retention, and prior MRSA bacteremia secondary to a diabetic foot wound status post I&D, presents to the Emergency Department for evaluation of PICC line displacement. He was previously admitted on 09/19 for a left foot infection and had an IR-placed PICC line on 10/11/24 for the purpose of long-term intravenous antibiotic therapy. No other complaints reported at this time. Related Data Home Medications ?Medication ?Instructions ?Recorded ?Confirmed aspirin 81 mg tablet 81 mg PO QDAY 09/19/24 10/11/24 gabapentin 300 mg capsule 300 mg PO Q8H PRN back pain 09/19/24 10/11/24 metformin 500 mg tablet 500 mg PO BIDWMEAL 09/19/24 10/11/24 omeprazole 20 mg capsule,delayed 20 mg PO QDAY 09/19/24 10/11/24 release Previous Rx's ?Medication ?Instructions ?Recorded atorvastatin 80 mg tablet 80 mg PO HS #90 tabs 10/02/24 clopidogrel 75 mg tablet 75 mg PO QDAY 90 days #90 tabs 10/02/24 finasteride 5 mg tablet 5 mg PO QDAY #90 tabs 10/02/24 lidocaine 5 % topical patch 1 patch topical QDAY PRN back pain 10/02/24 #30 ea tamsulosin 0.4 mg capsule 0.4 mg PO QDAY #90 caps 10/02/24 Allergies Allergy/AdvReac Type Severity Reaction Status Date / Time No Known Allergies Allergy Verified 10/11/24 08:42 Review of Systems Review of Systems Systems Reviewed: All systems reviewed, normal except as documented Past Medical History Past Medical History CARDIAC: Positive Hypercholesterolemia GENITOURINARY: Positive Prostate Cancer ENDOCRINE: Positive Diabetes Mellitus Type 2 OTHER HISTORY: Positive Prostate Cancer Social History SMOKING STATUS: Former smoker SUBSTANCE USE: does not use ALCOHOL: Never ED Exam Narrative Physical exam: GENERAL APPEARANCE:? alert and oriented x 4, well-developed, well-nourished, no acute distress HEENT: normocephalic, atraumatic NECK: supple LUNGS: no respiratory distress, normal effort HEART: good peripheral perfusion ABDOMEN: non distended EXTREMITIES:? atraumatic NEUROLOGIC: awake; alert and oriented x4; cranial nerves II-XII grossly intact PSYCHIATRIC:? appropriate mood and affect SKIN: warm, dry, normal color; no rashes Course Quality Measures none Orders Category Date Time Status IR PICC line insertion Stat Exams 10/31/24 Completed Heparin Sod Lock Syr [Hep-Lock 100 UNIT/ML SYR] Med 10/31/24 12:48 Discontinued 500 unit .ROUTE .STK-MED ONE Heparin Sod Lock Syr [Hep-Lock 100 UNIT/ML SYR] Med 10/31/24 12:45 Discontinued 500 unit IV X1 ONE Lidocaine 1% Pf 30 ml [Xylocaine 1% Pf 30 ml] Med 10/31/24 12:47 Discontinued 30 ml .ROUTE .STK-MED ONE Lidocaine 1% Pf 30 ml [Xylocaine 1% Pf 30 ml] Med 10/31/24 12:45 Discontinued 30 ml EPID X1 ONE Vital Signs Vital signs: Vital Signs Temperature 98.0 F 10/31/24 12:06 Pulse Rate 69 10/31/24 12:06 Respiratory Rate 18 10/31/24 12:06 Blood Pressure 132/79 H 10/31/24 12:06 Pulse Oximetry (%) 98 10/31/24 12:06 Oxygen Delivery Method Room Air 10/31/24 12:06 Recheck / Abnormal Lab / Rx MDM Narrative MDM Narrative:: ITracie am scribing for and in the presence of Dr. Hernandez. Patient data External records reviewed:: [facility] previous records and EMS form Clinical information provided by:: patient and EMS Social determinants that could affect healthcare access:: none Patient has the following chronic illnesses:: Type 2 diabetes mellitus, sciatica, remote history of valley fever, chronic neck and back pain, urinary retention, and prior MRSA bacteremia secondary to a diabetic foot wound status post I&D. Admitted on 09/19 for a left foot infection and had an IR-placed PICC line on 10/11/24 for the purpose of long-term intravenous antibiotic therapy. How is presenting disease/condition affected by chronic disease/condition?: exacerbated by Evaluation data The following diagnostics were reviewed and interpreted by me:: radiology exam(s) Lab and/or radiology exams considered but not ordered:: none Interpretation Summary: Procedure(s): IR PICC line insertion Accession Number(s): [id number] cc: Timo Lewis MD; NO PRIMARY/FAMILY,PHYSICIAN; Chaya Hernandez MD~ Examination: Ultrasound-guided needle placement right brachial vein. Dual-lumen central line placement (PICC line). Fluoroscopy AP chest, portable, single view Exam date and time:October 31, 2024 1244 hours INDICATIONS: Need for long-term intravenous antibiotic therapy for osteomyelitis A timeout was completed verifying correct patient, procedure, site, positioning Informed consent provided Technique: The patient's site was prepped and draped in sterile fashion. Maximum Sterile Barrier Technique used including cap, mask, sterile gown, sterile gloves, and sterile full body drape. If ultrasound technique used: sterile gel and sterile probe covers. Hand Hygiene performed using proper scrub, soap and water, or alcohol-based hand rub. Site right portable apparatus utilized to confirm patency of the right brachial vein Utilizing ultrasonographic guidance successful 21-gauge and a puncture into the right brachial vein . Ultrasound images recorded and stored. 5 cc 1% lidocaine administered for local anesthetic. Successful micropuncture with a 21-gauge needle is performed. 0.18 wire guide is then introduced into the SVC under fluoroscopic guidance. Dual-lumen catheter dilator is then introduced, followed by the catheter in the SVC and proper position under fluoroscopic guidance. Successful aspiration of blood and flushing with heparinized saline is then performed in the 2 venous limbs. The catheter sutured in place. Findings: Under fluoroscopy, the tip of the catheter is in good position in the vena cava. Portable chest x-ray, post line placement is ordered. Estimated blood loss 3 cc The patient tolerated the procedure well and was in stable and satisfactory condition at completion of the procedure Impression: Successful ultrasound-guided needle placement right brachial vein Successful placement of dual lumen central line, percutaneous Fluoroscopy 0.2 minute radiation dose 0.99 milligray 1 spot fluoroscopic chest film. AP chest completion procedure demonstrates satisfactory position central line. May use central line. Dictated By: Timo Lewis MD Medications / Prescriptions Medications or Prescriptions considered but not ordered:: none Medication administrations:: Medication Administration History Discontinued Medications Heparin Sodium (Beef Lung) (Heparin Sod Lock Syr 100 Unit/Ml) 500 unit IV X1 ONE Stop: 10/31/24 12:46 Last Admin: 10/31/24 13:15 Dose: 500 unit Documented By: EG Comments: to sterile field Heparin Sodium (Beef Lung) (Heparin Sod Lock Syr 100 Unit/Ml) Confirm Administered Dose 500 unit .ROUTE .STK-MED ONE Stop: 10/31/24 12:49 Last Admin: 10/31/24 12:53 Dose: Not Given Documented By: EG Non-Admin Reason: Duplicate Medication on eMAR Lidocaine HCl (Lidocaine Inj Pf 1% 30 Ml Vial) 30 ml EPID X1 ONE Stop: 10/31/24 12:46 Last Admin: 10/31/24 13:16 Dose: 5 ml Documented By: EG Comments: administered by dr. lewis. to sterile field Lidocaine HCl (Lidocaine Inj Pf 1% 30 Ml Vial) Confirm Administered Dose 30 ml .ROUTE .STK-MED ONE Stop: 10/31/24 12:48 Last Admin: 10/31/24 12:53 Dose: Not Given Documented By: EG Non-Admin Reason: Duplicate Medication on eMAR see above Consultations Consultation(s) initiated? (list below): No Diagnosis Recheck Differential Diagnosis: other (dislodged central line, line-related infection, loss of IV access requiring replacement) Most likely diagnosis given after review of the tests above:: Status post PICC central line placement Displacement of peripherally inserted cental catheter (PICC) Admission Indicated Admission indicated?: not indicated Admission Request Was there a request for admission?: No Disposition Plan Disposition Plan: Discharge (SNF) Discharge Attestation Discharge Attestation: The patient and all family members were given an opportunity to ask questions and understood the discharge instructions. Discharge instructions specifically effects, indications for sooner follow up or return to the emergency department, and the expected course of current diagnosis. Patient condition: Stable Discharge Plan Plan Patient Disposition: Xfer Skilled Nsg Fac (SNF) Prescriptions/Referrals Prescriptions/Med Rec: No Action aspirin 81 mg tablet 81 mg PO QDAY metformin 500 mg tablet 500 mg PO BIDWMEAL gabapentin 300 mg capsule 300 mg PO Q8H PRN (Reason: back pain) omeprazole 20 mg capsule,delayed release(DR/EC) 20 mg PO QDAY atorvastatin 80 mg tablet 80 mg PO HS Qty: 90 0RF clopidogrel 75 mg Tablet 75 mg PO QDAY 90 Days Qty: 90 0RF tamsulosin 0.4 mg Capsule 0.4 mg PO QDAY Qty: 90 0RF finasteride 5 mg Tablet 5 mg PO QDAY Qty: 90 0RF lidocaine 5 % adhesive patch,medicated 1 patch topical QDAY PRN (Reason: back pain) Qty: 30 0RF Rx Instructions: leave on most painful area for up to 12 hrs Problem List Clinical Impression: Status post PICC central line placement, Displacement of peripherally inserted central catheter (PICC) Patient/Caregiver Discharge Instructions Education Materials: ED PICC Line Care Print Language: Japanese Stand Alone Forms: Elaine Award Info., Patient Portal Info Letter
--- NOTE | 2024-10-31 12:41 | PC.NURSE ---
report given to jennifer malave from IR.
[2024-10-31] MEDS: HEPARIN SOD LOCK SYR 100 UNIT/ML 500 UNIT IV (13:15)
[2024-10-31] MEDS: LIDOCAINE INJ PF 1% 30 ML VIAL EPID (13:16)
--- NOTE | 2024-10-31 13:50 | PC.NURSE ---
patient transfered back to room. hand off report given to anastacio malave. dressing is clean dry and intact. site is soft, flat, non tender, and no signs of hematoma. patient alert.
== END 2024-10-31 16:17 | disposition skilled nursing facility (03) ==
LOC: SERX 14:51
PROVIDERS: Emergency Provider Emergency Medicine
DX: T82.524A Displacement of infusion catheter, initial encounter (principal); Y84.8 Other medical procedures as the cause of abnormal reaction of the patient, or of later complication, without mention of misadventure at the time of the procedure
CPT/HCPCS: 36573; 99283; C1751; C1894; J1642; J3490; J7050